=== PATIENT | male | born 1945 | race African-American/Black ===

== ENCOUNTER 2018-09-15 22:55 | Inpatient (IN) | payer MEDICARE, MEDICAID ==
[2018-09-15 23:34] LABS: % BASOPHILS 0.2 % (0.0-2.0); % EOSINOPHILS 0.3 % (0.0-5.0); % LYMPHOCYTES 14.1 % (20.0-50.0); % MONOCYTES 7.1 % (2.0-10.0); % NEUTROPHILS 78.3 % (40.0-80.0); HEMATOCRIT 30.1 % (41.0-60); HEMOGLOBIN 9.8 gm/dL (12-16); LYMPHOCYTE ABSOLUTE 1.6 Th/cmm (1.5-3.0); MEAN CELL VOLUME 80.1 fl (80-99); MEAN CORPUSCULAR HEMOGLOBIN 26.1 pg (27.0-31.0); MEAN CORPUSCULAR HGB CONC 32.5 pg (28.0-36.0); MEAN PLATELET VOLUME 8.1 fl; MONOCYTE ABSOLUTE 0.8 Th/cmm (0.3-1.0); NEUTROPHILE ABSOLUTE 9.3 Th/cmm (1.8-8.0); PLATELET COUNT 297 Th/cmm (150-400); RED BLOOD COUNT 3.76 Mil/cmm (3.80-5.80); RED CELL DISTRIBUTION WIDTH 16.1 % (11.5-20.0); WHITE BLOOD COUNT 11.7 Th/cmm (4.8-10.8)
[2018-09-15 23:53] LABS: ANION GAP 19.8 (7.0-16.0); CALCIUM SERUM 8.7 mg/dL (8.6-10.3); CARBON DIOXIDE 23.9 mEq/L (21.0-31.0); CREATININE - SERUM 1.6 mg/dL (0.7-1.3); GFR AFRICAN-AMERICAN 55.2 ml/min (>90); GFR NON AFRICAN-AMERICAN 45.6 ml/min; POTASSIUM SERUM 4.7 mEq/L (3.5-5.1)
--- NOTE | 2018-09-16 00:15 | ED Physician Chart ---
ED Chief Complaint/HPI - Patient Information Date Seen:: 09/15/18 Chief Complaint:: fall History of Present Illness:: 72 yr old male with weakness fall from nursing homes Allergies:: Allergies Allergy/AdvReac Type Severity Reaction Status Date / Time No Known Allergies Allergy Verified 09/15/18 23:08 Vitals:: Vital Signs - 8 hr 09/15/18 23:03 Temp 98.5 F HR 89 RR 17 BP 105/58 O2 Sat % 98 ED Past Medical History - Past Medical History Past Medical History: Other (copd difficulty walking dm parkinsonsanxiety paranoid schizophrenia) Family Medical History - Family Member Mother History Unknown: Yes ED Physical Exam - Physical Examination General/Constitutional: Well-developed, well-nourished Head: Atraumatic ENMT: External ears, nose nl Neck: Nontender Respiratory: Nl effort/Exclusion Cardio Vascular: RRR (patchy skin discoloration rt zamudio) GI: No tenderness/rebounding/guarding Extremities: No tenderness or effusion ED Labs/Radiology/EKG Results - Lab Results Results: Laboratory Tests 09/15/18 09/15/18 23:20 23:20 WBC 11.7 H RBC 3.76 L Hgb 9.8 L Hct 30.1 L MCV 80.1 MCH 26.1 L MCHC Differential 32.5 RDW 16.1 Plt Count 297 MPV 8.1 Neutrophils % 78.3 Lymphocytes % 14.1 L Monocytes % 7.1 Eosinophils % 0.3 Basophils % 0.2 Sodium 137 Potassium 4.7 Chloride 98 Carbon Dioxide 23.9 Anion Gap 19.8 H BUN 33 H Creatinine 1.6 H Est GFR ( Amer) 55.2 Est GFR (Non-Af Amer) 45.6 BUN/Creatinine Ratio 20.6 Glucose 168 H Calcium 8.7 Creatine Kinase 130 ED Assessment - Assessment General Assessment: weakness falls ED Septic Shock - . Is Septic Shock (SBP<90, OR Lactate>4 mmol\L) present?: No - <6hrs of presentation: Vital Signs: Vital Signs - 8 hr 09/15/18 23:03 Temp 98.5 F HR 89 RR 17 BP 105/58 O2 Sat % 98 ED Reassessment (Disposition) - Reassessment Reassessment:: weakness falls schizophrenia - Diagnosis Diagnosis:: as above - Patient Disposition Discharge/Transfer:: Acute Care w/in this hosp Admitted to:: Med/Surg Condition at Disposition:: Stable
[2018-09-16] MEDS ORDERED: Sodium Chloride 0.45% 1,000 ML IV SCH (02:00)
[2018-09-16 03:18] VITALS: BP 112/61
[2018-09-16] MEDS: Nicotine 21 mg/24 hr Tdm TD SCH (12:56)
--- NOTE | 2018-09-16 13:05 | History and Physical ---
History of Present Illness - HPI Chief Complaint: 72 y/o male patient was brought into Emergency room due to Weakness and Fall. HPI: 72 y/o male patient was admitted to [facility] due to Weakness and Fall from Detention. Patient has history of Difficulty walking, Parkinson's disease, Copd, Diabetes and Paranoid Schizophrenia. Patient was assessed at the Emergency room and had a complete workup done. Patient was diagnosed with S/p Fall, weakness, Difficulty walking, History of Parkinson's disease, Copd, Diabetes and Paranoid Schizophrenia. I will follow, treat and monitor patient. Patient will continue current treatment plan as ordered. Vital Signs: Last Vital Signs Temp 98.3 F 09/16/18 11:53 Pulse 89 09/16/18 11:53 Resp 18 09/16/18 11:53 BP 97/32 09/16/18 11:53 Pulse Ox 93 09/16/18 11:53 Past Medical History Cardiovascular: Report: No Pertinent Hx Pulmonary: Report: COPD HONEY PROCESSOR: Report: No Pertinent Hx GI: Report: No Pertinent Hx Psych: Report: Schizophrenia Musculoskeletal: Report: No Pertinent Hx Rheumatologic: Report: No pertinent Hx Renal/: Report: No Pertinent Hx Endocrine: Report: Diabetes Dermatology: Report: No Pertinent Hx - Past Surgical History Past Surgical History: No pertinent Hx Family Medical History - Family Member Mother History Unknown: Yes Ethnicity: Unknown Living Status: Unknown Hx Family Cancer: No Hx Family Coronary Artery Disease: No Hx Family Congestive Heart Failure: No Hx Family Hypertension: No Hx Family Stroke: No Hx Family Diabetes: No Hx Family Seizures: No Hx Family Dementia: No Hx Family AIDS: No Hx Family HIV: No Hx Family COPD: No Hx Family Hepatitis: No Hx Family Psychiatric Problems: No Hx Family Tuberculosis: No Social History Smoke: No Alcohol: None Drugs: None Lives: Detention Domestic Violence: Negative Health Maintenance Health Maintenance: Other (See chart.) - Medications Home Medications: Home Medication Medication Instructions Recorded Type Acetaminophen [Tylenol] 650 mg PO Q6HR PRN 09/15/18 History Amlodipine Besylate 10 mg PO DAILY 09/15/18 History Ascorbic Acid [Vitamin C] 500 mg PO DAILY 09/15/18 History Aspirin EC [Ecotrin] 81 mg PO DAILY 09/15/18 History Bisacodyl [Dulcolax 10 Mg Supp] 10 mg RC DAILY PRN 09/15/18 History Calcium Carbonate/Vitamin D3 1 each PO DAILY 09/15/18 History [Calcium 500-Vit D3 200 Caplet] Carbidopa/Levodopa [Carbidopa-Levo 1 each PO BID 09/15/18 History 25-100 mg Odt] Divalproex Sodium [Depakote] 500 mg PO BID 09/15/18 History Docusate Sodium [Dok] 250 mg PO BID 09/15/18 History Famotidine [Pepcid] 20 mg PO BID 09/15/18 History Ferrous Sulfate 325 mg PO BID 09/15/18 History Folic Acid [Folate*] 1 mg PO DAILY 09/15/18 History Glipizide [Glipizide ER] 2.5 mg PO QDAC 09/15/18 History Hydralazine [Apresoline*] 50 mg PO Q8H 09/15/18 History Hydrocodone/Acetaminophen [[place] 1 each PO Q6H PRN 09/15/18 History 5-325 Tablet] Latanoprost/Pf [Latanoprost 0.005% 1 drop LEFT EYE HS 09/15/18 History Eye Drop] Lisinopril 10 mg PO BID 09/15/18 History Magnesium Hydroxide [Milk of 30 ml PO HS PRN 09/15/18 History Magnesia] Metformin HCl 1,000 mg PO BID 09/15/18 History Metoprolol Tartrate 25 mg PO BID 09/15/18 History QUEtiapine Fumarate [SEROquel] 200 mg PO HS 09/15/18 History Salmeterol Xinafoate [Serevent 1 puff IH DAILY 09/15/18 History Diskus] - Allergies Allergies/Adverse Reactions: Allergies Allergy/AdvReac Type Severity Reaction Status Date / Time No Known Allergies Allergy Verified 09/15/18 23:08 Review of Systems - Review of Systems Constitutional: Report: No Significant Eyes: Report: No Significant ENT: Report: No Significant Respiratory: Report: No Significant Cardiovascular: Report: No Significant Gastrointestinal: Report: No Significant Genitourinary: Report: No Significant Musculoskeletal: Report: Other (Weakness.) Skin: Report: No Significant Neurological: Report: Weakness Physical Exam - Physical Exam HEENT: Report: Ears Nose Throat within normal limits Neck: Report: Within normal limits Cardiovascular Systems: Report: +s1/s2 noted, Regular, Rate and Rhythm Respiratory: Report: Breath Sounds are within normal limits Abdomen: Report: Non-tender to palpation Back: Report: Inspection of back is within normal limits. Extremities: Report: Other (General muscle weakness.) Skin: Report: Color of skin is within normal limits Neuro/Psych: Report: Mood affect is within normal limits - Lab Results All Lab Results last 24 hours: Laboratory Results - last 24 hr 09/15/18 09/15/18 09/15/18 23:20 23:20 23:20 WBC 11.7 H RBC 3.76 L Hgb 9.8 L Hct 30.1 L MCV 80.1 MCH 26.1 L MCHC Differential 32.5 RDW 16.1 Plt Count 297 MPV 8.1 Neutrophils % 78.3 Lymphocytes % 14.1 L Monocytes % 7.1 Eosinophils % 0.3 Basophils % 0.2 Sodium 137 Potassium 4.7 Chloride 98 Carbon Dioxide 23.9 Anion Gap 19.8 H BUN 33 H Creatinine 1.6 H Est GFR ( Amer) 55.2 Est GFR (Non-Af Amer) 45.6 BUN/Creatinine Ratio 20.6 Glucose 168 H Calcium 8.7 Creatine Kinase 130 Troponin I < 0.01 L - Assessment Assessment: S/p Fall. Weakness. Difficulty walking. Hx of Copd. Hx of Diabetes. Hx of Parkinson's disease. Hx of Paranoid Schizophrenia. - Plan Plan: Continuation of care Neuro checks Monitor Labs Monitor diet Continue present meds as directed Monitor mental status Fall precaution Pain management Physical therapy Occuational therapy Continue Current treatment as ordered.
[2018-09-16] MEDS: Ferrous Sulfate 325 MG TAB PO SCH ×2 (16:50→16:54)
[2018-09-17] MEDS: Calcium Carb/Vit D 500 mg/200 U Tab PO SCH (09:46)
[2018-09-17] MEDS: Nicotine 21 mg/24 hr Tdm TD SCH (09:47)
[2018-09-17] MEDS: Ferrous Sulfate 325 MG TAB PO SCH ×2 (10:53→16:39)
[2018-09-17] MEDS: Codeine/Promethazine Susp 5 mL UDC PO PRN (11:25)
[2018-09-17] MEDS: Eucerin Cream 16 oz Jar TP SCH (16:56)
--- NOTE | 2018-09-17 20:26 | Consultation ---
DATE OF CONSULTATION: 09/17/2018 HISTORY OF PRESENT ILLNESS: A 72-year-old male, apparently conserved, unclear psychiatric history, but notes he has been in a psychiatric hospital before, very unruly, agitated, yelling very loud, screaming, throwing things on the ground. Lashonda lundy had to be called. Staff having a difficult time controlling his behaviors. He may need emergency medications. The patient states that he wants me to sign papers, so that he can go back to his assisted facility, but he is very agitated, poor impulse control. PAST PSYCHIATRIC HISTORY: History of admissions in the past. SOCIAL HISTORY: Born in [place], not . No kids, no drugs, no alcohol, no tobacco. Apparently, he has a conservator. MENTAL STATUS EXAMINATION: Stated age, fair eye contact. Awake, alert. Intense eye contact. Mood "fine." Affect angry. Thought processes were tangential, very loud volume at some point. No SI, no HI, but he is unruly, very poor impulse control, aggressive towards staff. PROVISIONAL DIAGNOSES: Mood, unspecified; rule out bipolar versus schizophrenia versus schizoaffective disorder. Under medical, please see full H and P. RECOMMENDATIONS AND PLAN: The patient may need a Haldol cocktail. We will initiate 5150 hold for danger to others. JOB# [id number]
--- NOTE | 2018-09-17 20:39 | Internal Medicine Prog Note ---
Internal Medicine Subjective - Subjective Service Date: 09/17/18 Patient seen and examined:: without staff Patient is:: awake Per staff patient has:: tolerating meds Internal Medicine Objective - Results Result Diagrams: 09/15/18 23:20 09/15/18 23:20 Recent Labs: Laboratory Last Values WBC 11.7 Th/cmm (4.8-10.8) H 09/15/18 23:20 RBC 3.76 Mil/cmm (3.80-5.80) L 09/15/18 23:20 Hgb 9.8 gm/dL (12-16) L 09/15/18 23:20 Hct 30.1 % (41.0-60) L 09/15/18 23:20 MCV 80.1 fl (80-99) 09/15/18 23:20 MCH 26.1 pg (27.0-31.0) L 09/15/18 23:20 MCHC Differential 32.5 pg (28.0-36.0) 09/15/18 23:20 RDW 16.1 % (11.5-20.0) 09/15/18 23:20 Plt Count 297 Th/cmm (150-400) 09/15/18 23:20 MPV 8.1 fl 09/15/18 23:20 Neutrophils % 78.3 % (40.0-80.0) 09/15/18 23:20 Lymphocytes % 14.1 % (20.0-50.0) L 09/15/18 23:20 Monocytes % 7.1 % (2.0-10.0) 09/15/18 23:20 Eosinophils % 0.3 % (0.0-5.0) 09/15/18 23:20 Basophils % 0.2 % (0.0-2.0) 09/15/18 23:20 Sodium 137 mEq/L (136-145) 09/15/18 23:20 Potassium 4.7 mEq/L (3.5-5.1) 09/15/18 23:20 Chloride 98 mEq/L (98-107) 09/15/18 23:20 Carbon Dioxide 23.9 mEq/L (21.0-31.0) 09/15/18 23:20 Anion Gap 19.8 (7.0-16.0) H 09/15/18 23:20 BUN 33 mg/dL (7-25) H 09/15/18 23:20 Creatinine 1.6 mg/dL (0.7-1.3) H 09/15/18 23:20 Est GFR ( Amer) 55.2 ml/min (>90) 09/15/18 23:20 Est GFR (Non-Af Amer) 45.6 ml/min 09/15/18 23:20 BUN/Creatinine Ratio 20.6 09/15/18 23:20 Glucose 168 mg/dL (70-105) H 09/15/18 23:20 Calcium 8.7 mg/dL (8.6-10.3) 09/15/18 23:20 Creatine Kinase 130 U/L (30-223) 09/15/18 23:20 Troponin I < 0.01 ng/mL (0.01-0.05) L 09/15/18 23:20 - Physical Exam Vitals and I&O: Vital Signs Temp 97.6 F 09/17/18 16:00 Pulse 86 09/17/18 17:34 Resp 18 09/17/18 16:00 BP 110/63 09/17/18 17:34 Pulse Ox 96 09/17/18 16:00 Intake & Output 09/17/18 09/17/18 09/18/18 06:59 18:59 06:59 Intake Total 300 900 Balance 300 900 Weight (lbs) 212 lb 212 lb Intake: Oral 300 900 Other: # Voids 4 3 Weight Source Bedscale Bedscale Active Medications: Current Medications Acetaminophen (Tylenol) 650 mg PO Q6HR PRN PRN Reason: Pain or Fever >101 Stop: 11/15/18 10:20 Last Admin: 09/17/18 15:15 Dose: 650 mg Amlodipine Besylate (Norvasc) 10 mg PO DAILY [facility] Stop: 11/16/18 08:59 Last Admin: 09/17/18 10:52 Dose: Not Given Ascorbic Acid (Vitamin C) 500 mg PO DAILY [facility] Stop: 11/16/18 08:59 Last Admin: 09/17/18 09:46 Dose: 500 mg Aspirin (Ecotrin) 81 mg PO DAILY [facility] Stop: 11/16/18 08:59 Last Admin: 09/17/18 09:47 Dose: 81 mg Bisacodyl (Dulcolax 10 Mg Supp) 10 mg RC DAILY PRN PRN Reason: Constipation Stop: 11/15/18 10:20 Calcium/Vitamin D (Oscal W/Vitamin D) 1 tab PO DAILY [facility] Stop: 11/16/18 08:59 Last Admin: 09/17/18 09:46 Dose: 1 tab Carbidopa/Levodopa (Sinemet 25mg-100 Mg) 1 tab PO BID [facility] Stop: 11/15/18 16:59 Last Admin: 09/17/18 16:39 Dose: 1 tab Docusate Sodium (Colace) 250 mg PO BID [facility] Stop: 11/15/18 16:59 Last Admin: 09/17/18 16:39 Dose: 250 mg Famotidine (Pepcid) 20 mg PO BID [facility] Stop: 11/15/18 16:59 Last Admin: 09/17/18 16:39 Dose: 20 mg Ferrous Sulfate (Iron) 325 mg PO BID [facility] Stop: 11/15/18 16:59 Last Admin: 09/17/18 16:39 Dose: 325 mg Folic Acid (Folate) 1 mg PO DAILY [facility] Stop: 11/16/18 08:59 Last Admin: 09/17/18 09:46 Dose: 1 mg Glipizide (Glucotrol) 2.5 mg PO QDAC [facility] Stop: 11/16/18 07:29 Last Admin: 09/17/18 06:35 Dose: Not Given Hydralazine HCl (Apresoline) 50 mg PO Q8H [facility] Stop: 11/15/18 10:29 Last Admin: 09/17/18 17:34 Dose: Not Given Sodium Chloride (Nacl 0.45%) 1,000 mls @ 75 mls/hr IV .[id number] [facility] Stop: 11/15/18 01:59 Miscellaneous (Clinical Monitoring) 1 ea MC DAILY PRN PRN Reason: RENAL DOSING Stop: 11/15/18 10:35 Multi-Ingredient Cream (Eucerin Cream) 1 appl TP BID [facility] Stop: 11/16/18 16:59 Last Admin: 09/17/18 16:56 Dose: 1 appl Nicotine (Nicotine Transdermal System) 21 mg TD DAILY [facility] Stop: 11/15/18 10:44 Last Admin: 09/17/18 09:47 Dose: 21 mg Promethazine HCl/Codeine (Phenergan W/Cod Susp) 10 ml PO TID PRN PRN Reason: Cough Stop: 11/16/18 10:47 Last Admin: 09/17/18 11:25 Dose: 10 ml Quetiapine Fumarate (Seroquel) 25 mg PO BID [facility]; Protocol Stop: 11/16/18 16:59 Last Admin: 09/17/18 16:39 Dose: 25 mg HEENT: NC/AT, PERRLA Neck: Supple Lungs: CTAB Cardiovascular: RRR, without murmur Abdomen: non-tender, non-distended Internal Medicine Assmt/Plan - Assessment Assessment: S/p Fall. Weakness. Difficulty walking. Hx of Copd. Hx of Diabetes. Hx of Parkinson's disease. Hx of Paranoid Schizophrenia. d. - Plan Plan: Continuation of care Neuro checks Monitor Labs Monitor diet Continue present meds as directed Monitor mental status Fall precaution Pain management Physical therapy Occuational therapy Continue Current treatment as ordere
[2018-09-18] MEDS: Codeine/Promethazine Susp 5 mL UDC PO PRN (03:06)
[2018-09-18] MEDS: Nicotine 21 mg/24 hr Tdm TD SCH (08:29)
[2018-09-18] MEDS: Calcium Carb/Vit D 500 mg/200 U Tab PO SCH (08:47)
[2018-09-18] MEDS: Ferrous Sulfate 325 MG TAB PO SCH ×2 (08:48→16:04)
[2018-09-18] MEDS: Eucerin Cream 16 oz Jar TP SCH ×2 (08:49→16:04)
--- NOTE | 2018-09-18 16:50 | Internal Medicine Prog Note ---
Internal Medicine Subjective - Subjective Service Date: 09/18/18 Patient seen and examined:: with staff, chart reviewed Patient is:: awake, agitated, confused Patient Complaints of:: other (Aggressive behavior.) Per staff patient has:: no episodes of fall, tolerating meds Internal Medicine Objective - Results Result Diagrams: 09/15/18 23:20 09/15/18 23:20 Recent Labs: Laboratory Last Values WBC 11.7 Th/cmm (4.8-10.8) H 09/15/18 23:20 RBC 3.76 Mil/cmm (3.80-5.80) L 09/15/18 23:20 Hgb 9.8 gm/dL (12-16) L 09/15/18 23:20 Hct 30.1 % (41.0-60) L 09/15/18 23:20 MCV 80.1 fl (80-99) 09/15/18 23:20 MCH 26.1 pg (27.0-31.0) L 09/15/18 23:20 MCHC Differential 32.5 pg (28.0-36.0) 09/15/18 23:20 RDW 16.1 % (11.5-20.0) 09/15/18 23:20 Plt Count 297 Th/cmm (150-400) 09/15/18 23:20 MPV 8.1 fl 09/15/18 23:20 Neutrophils % 78.3 % (40.0-80.0) 09/15/18 23:20 Lymphocytes % 14.1 % (20.0-50.0) L 09/15/18 23:20 Monocytes % 7.1 % (2.0-10.0) 09/15/18 23:20 Eosinophils % 0.3 % (0.0-5.0) 09/15/18 23:20 Basophils % 0.2 % (0.0-2.0) 09/15/18 23:20 Sodium 137 mEq/L (136-145) 09/15/18 23:20 Potassium 4.7 mEq/L (3.5-5.1) 09/15/18 23:20 Chloride 98 mEq/L (98-107) 09/15/18 23:20 Carbon Dioxide 23.9 mEq/L (21.0-31.0) 09/15/18 23:20 Anion Gap 19.8 (7.0-16.0) H 09/15/18 23:20 BUN 33 mg/dL (7-25) H 09/15/18 23:20 Creatinine 1.6 mg/dL (0.7-1.3) H 09/15/18 23:20 Est GFR ( Amer) 55.2 ml/min (>90) 09/15/18 23:20 Est GFR (Non-Af Amer) 45.6 ml/min 09/15/18 23:20 BUN/Creatinine Ratio 20.6 09/15/18 23:20 Glucose 168 mg/dL (70-105) H 09/15/18 23:20 Calcium 8.7 mg/dL (8.6-10.3) 09/15/18 23:20 Creatine Kinase 130 U/L (30-223) 09/15/18 23:20 Troponin I < 0.01 ng/mL (0.01-0.05) L 09/15/18 23:20 - Physical Exam Vitals and I&O: Vital Signs Temp 98.6 F 09/18/18 16:00 Pulse 106 09/18/18 16:00 Resp 18 09/18/18 16:00 BP 149/80 09/18/18 16:00 Pulse Ox 97 09/18/18 16:00 Intake & Output 09/17/18 09/18/18 09/18/18 18:59 06:59 18:59 Intake Total 900 Balance 900 Weight (lbs) 96.162 kg 96.162 kg Intake: Oral 900 Other: # Voids 3 1 Weight Source Bedscale Bedscale Active Medications: Current Medications Acetaminophen (Tylenol) 650 mg PO Q6HR PRN PRN Reason: Pain or Fever >101 Stop: 11/15/18 10:20 Last Admin: 09/18/18 03:09 Dose: 650 mg Amlodipine Besylate (Norvasc) 10 mg PO DAILY [facility] Stop: 11/16/18 08:59 Last Admin: 09/18/18 08:47 Dose: Not Given Ascorbic Acid (Vitamin C) 500 mg PO DAILY [facility] Stop: 11/16/18 08:59 Last Admin: 09/18/18 08:47 Dose: Not Given Aspirin (Ecotrin) 81 mg PO DAILY [facility] Stop: 11/16/18 08:59 Last Admin: 09/18/18 08:47 Dose: Not Given Bisacodyl (Dulcolax 10 Mg Supp) 10 mg RC DAILY PRN PRN Reason: Constipation Stop: 11/15/18 10:20 Calcium/Vitamin D (Oscal W/Vitamin D) 1 tab PO DAILY [facility] Stop: 11/16/18 08:59 Last Admin: 09/18/18 08:47 Dose: Not Given Carbidopa/Levodopa (Sinemet 25mg-100 Mg) 1 tab PO BID [facility] Stop: 11/15/18 16:59 Last Admin: 09/18/18 16:04 Dose: 1 tab Docusate Sodium (Colace) 250 mg PO BID [facility] Stop: 11/15/18 16:59 Last Admin: 09/18/18 16:04 Dose: 250 mg Famotidine (Pepcid) 20 mg PO BID [facility] Stop: 11/15/18 16:59 Last Admin: 09/18/18 16:04 Dose: 20 mg Ferrous Sulfate (Iron) 325 mg PO BID [facility] Stop: 11/15/18 16:59 Last Admin: 09/18/18 16:04 Dose: 325 mg Folic Acid (Folate) 1 mg PO DAILY [facility] Stop: 11/16/18 08:59 Last Admin: 09/18/18 08:32 Dose: 1 mg Glipizide (Glucotrol) 2.5 mg PO QDAC [facility] Stop: 11/16/18 07:29 Last Admin: 09/18/18 08:47 Dose: Not Given Hydralazine HCl (Apresoline) 50 mg PO Q8H [facility] Stop: 11/15/18 10:29 Last Admin: 09/18/18 11:04 Dose: 50 mg Sodium Chloride (Nacl 0.45%) 1,000 mls @ 75 mls/hr IV .[id number] [facility] Stop: 11/15/18 01:59 Lorazepam (Ativan) 1 mg IM Q4HR PRN; Protocol PRN Reason: Agitation Stop: 11/16/18 22:18 Miscellaneous (Clinical Monitoring) 1 ea MC DAILY PRN PRN Reason: RENAL DOSING Stop: 11/15/18 10:35 Multi-Ingredient Cream (Eucerin Cream) 1 appl TP BID [facility] Stop: 11/16/18 16:59 Last Admin: 09/18/18 16:04 Dose: 1 appl Nicotine (Nicotine Transdermal System) 21 mg TD DAILY [facility] Stop: 11/15/18 10:44 Last Admin: 09/18/18 08:29 Dose: 21 mg Promethazine HCl/Codeine (Phenergan W/Cod Susp) 10 ml PO TID PRN PRN Reason: Cough Stop: 11/16/18 10:47 Last Admin: 09/18/18 03:06 Dose: 10 ml Quetiapine Fumarate (Seroquel) 25 mg PO BID [facility]; Protocol Stop: 11/16/18 16:59 Last Admin: 09/18/18 16:04 Dose: 25 mg General: demented HEENT: NC/AT, PERRLA Neck: Supple Lungs: CTAB Cardiovascular: RRR, without murmur Abdomen: non-tender, non-distended Extremities: clear Neurological: no change, disorganized Internal Medicine Assmt/Plan - Assessment Assessment: S/p Fall. Weakness. Difficulty walking. Hx of Copd. Hx of Diabetes. Hx of Parkinson's disease. Hx of Paranoid Schizophrenia. - Plan Plan: Continuation of care Monitor Labs Monitor diet Psych consult Continue present meds as directed Monitor mental status Fall precaution Pain management Physical therapy Occuational therapy Continue Current treatment as ordered. Nutritional Asmnt/Malnutr-PDOC - Dietary Evaluation Malnutrition Findings (Please click <Entered> for more info): Nutritional Asmnt/Malnutrition Start: 09/18/18 13: 52 Text: Status: Complete Freq: Protocol: Document 09/18/18 13:53 LCHENG (Rec: 09/18/18 14:00 [email or web address] [email or web address]) Nutritional Asmnt/Malnutrition Patient General Information Diagnosis fall, generalized weakness, anemia, DM Pertinent Medical Hx/Surgical Hx COPD, schizophrenia, DM Subjective Information Consult received for DM type2, discoloration koko lower legs, and mavis score 12. Pt seen lying in bed, awake and alert, easily agitated, not able to obtain more nutrition infomation from pt. Per RN, pt refused medication and IV. Pt stated appetite is very good, he likes chicken. Per EMR, PO intake 75%. Current Diet Order/ Nutrition Support CCHO Pertinent Medications vit C, oscal w/vit D, colace, pepcid, iron, folate, seroquel , nacl 0.45% Pertinent Labs 09/15 BUN 33, Cr 1.6, glucose 168 Nutritional Hx/Data Height 1.75 m Height (Calculated Centimeters) 175.3 Current Weight (lbs) 96.162 kg Weight (Calculated Kilograms) 96.2 Weight (Calculated Grams) 16305.6 [place] Body Weight 160 Body Mass Index (BMI) 31.3 Weight Status Obese GI Symptoms GI Symptoms None Last BM none Difficult in: None Skin Integrity/Comment: bilateral lower legs discoloration. mavis 14. per wound care note - chronic wound to right knee, re-ppened scar tissure to right zamudio. Estimated Nutritional Goals BEE in Kcals: Adj wt of IBW Calories/Kcals/Kg 23-27 Kcals Calculated 2820-2796 Protein: Adj wt of IBW Protein g/k monitor renal labs Protein Calculated 79 Fluid: ml 1817-2133ml (1ml/kcal) Nutritional Problem 1. Problem Problem altered nutrition related labs Etiology hyperglycemia, possible renal dysfunction Signs/Symptoms: BUN 33, Cr 1.6, glucose 168 Malnutrition Alert Is there a minimum of two criteria No selected? Query Text:Check all the applicable criteria. A minimum of two criteria are recommended for diagnosis of either severe or non-severe malnutrition. Malnutrition Related to Morbid Obesity Malnutrition related to morbid obesity No Intervention/Recommendation Comments 1. Continue with [facility] diet as ordered. Food preference updated. Add Eagle BID for wound healing. 2. Monitor PO intake, wt, labs and skin integrity 3. F/U as moderate risk in 3-5 days Expected Outcomes/Goals Expected Outcomes/Goals 1. PO intake to meet at least 75% of nutritional needs. 2. Wt stability, skin to remain intact, labs to approach WNL.
[2018-09-19] MEDS: Codeine/Promethazine Susp 5 mL UDC PO PRN (02:13)
[2018-09-19] MEDS: Eucerin Cream 16 oz Jar TP SCH ×2 (08:42→17:39)
[2018-09-19] MEDS: Calcium Carb/Vit D 500 mg/200 U Tab PO SCH (08:42)
[2018-09-19] MEDS: Ferrous Sulfate 325 MG TAB PO SCH ×3 (08:43→17:38)
[2018-09-19] MEDS: Nicotine 21 mg/24 hr Tdm TD SCH (08:43)
--- NOTE | 2018-09-19 18:52 | Internal Medicine Prog Note ---
Internal Medicine Subjective - Subjective Service Date: 09/19/18 Patient is:: awake, agitated, confused Patient Complaints of:: other (Aggressive behavior.) Per staff patient has:: no episodes of fall, tolerating meds Internal Medicine Objective - Results Result Diagrams: 09/15/18 23:20 09/15/18 23:20 Recent Labs: Laboratory Last Values WBC 11.7 Th/cmm (4.8-10.8) H 09/15/18 23:20 RBC 3.76 Mil/cmm (3.80-5.80) L 09/15/18 23:20 Hgb 9.8 gm/dL (12-16) L 09/15/18 23:20 Hct 30.1 % (41.0-60) L 09/15/18 23:20 MCV 80.1 fl (80-99) 09/15/18 23:20 MCH 26.1 pg (27.0-31.0) L 09/15/18 23:20 MCHC Differential 32.5 pg (28.0-36.0) 09/15/18 23:20 RDW 16.1 % (11.5-20.0) 09/15/18 23:20 Plt Count 297 Th/cmm (150-400) 09/15/18 23:20 MPV 8.1 fl 09/15/18 23:20 Neutrophils % 78.3 % (40.0-80.0) 09/15/18 23:20 Lymphocytes % 14.1 % (20.0-50.0) L 09/15/18 23:20 Monocytes % 7.1 % (2.0-10.0) 09/15/18 23:20 Eosinophils % 0.3 % (0.0-5.0) 09/15/18 23:20 Basophils % 0.2 % (0.0-2.0) 09/15/18 23:20 Sodium 137 mEq/L (136-145) 09/15/18 23:20 Potassium 4.7 mEq/L (3.5-5.1) 09/15/18 23:20 Chloride 98 mEq/L (98-107) 09/15/18 23:20 Carbon Dioxide 23.9 mEq/L (21.0-31.0) 09/15/18 23:20 Anion Gap 19.8 (7.0-16.0) H 09/15/18 23:20 BUN 33 mg/dL (7-25) H 09/15/18 23:20 Creatinine 1.6 mg/dL (0.7-1.3) H 09/15/18 23:20 Est GFR ( Amer) 55.2 ml/min (>90) 09/15/18 23:20 Est GFR (Non-Af Amer) 45.6 ml/min 09/15/18 23:20 BUN/Creatinine Ratio 20.6 09/15/18 23:20 Glucose 168 mg/dL (70-105) H 09/15/18 23:20 Calcium 8.7 mg/dL (8.6-10.3) 09/15/18 23:20 Creatine Kinase 130 U/L (30-223) 09/15/18 23:20 Troponin I < 0.01 ng/mL (0.01-0.05) L 09/15/18 23:20 - Physical Exam Vitals and I&O: Vital Signs Temp 97.5 F 09/19/18 04:00 Pulse 81 09/19/18 17:38 Resp 18 09/19/18 04:00 BP 126/78 09/19/18 17:38 Pulse Ox 96 09/19/18 04:00 Intake & Output 09/18/18 09/19/18 09/19/18 18:59 06:59 18:59 Intake Total 600 100 Balance 600 100 Weight (lbs) 215 lb 215 lb Intake: Oral 600 100 Other: # Voids 5 # Bowel Movements 0 0 Weight Source Bedscale Bedscale Active Medications: Current Medications Acetaminophen (Tylenol) 650 mg PO Q6HR PRN PRN Reason: Pain or Fever >101 Stop: 11/15/18 10:20 Last Admin: 09/18/18 20:03 Dose: 650 mg Amlodipine Besylate (Norvasc) 10 mg PO DAILY [facility] Stop: 11/16/18 08:59 Last Admin: 09/19/18 08:42 Dose: Not Given Ascorbic Acid (Vitamin C) 500 mg PO DAILY [facility] Stop: 11/16/18 08:59 Last Admin: 09/19/18 08:42 Dose: Not Given Aspirin (Ecotrin) 81 mg PO DAILY [facility] Stop: 11/16/18 08:59 Last Admin: 09/19/18 08:42 Dose: Not Given Bisacodyl (Dulcolax 10 Mg Supp) 10 mg RC DAILY PRN PRN Reason: Constipation Stop: 11/15/18 10:20 Calcium/Vitamin D (Oscal W/Vitamin D) 1 tab PO DAILY [facility] Stop: 11/16/18 08:59 Last Admin: 09/19/18 08:42 Dose: Not Given Carbidopa/Levodopa (Sinemet 25mg-100 Mg) 1 tab PO BID [facility] Stop: 11/15/18 16:59 Last Admin: 09/19/18 17:39 Dose: 1 tab Docusate Sodium (Colace) 250 mg PO BID [facility] Stop: 11/15/18 16:59 Last Admin: 09/19/18 17:39 Dose: Not Given Famotidine (Pepcid) 20 mg PO BID [facility] Stop: 11/15/18 16:59 Last Admin: 09/19/18 17:39 Dose: 20 mg Ferrous Sulfate (Iron) 325 mg PO BID [facility] Stop: 11/15/18 16:59 Last Admin: 09/19/18 17:38 Dose: 325 mg Folic Acid (Folate) 1 mg PO DAILY [facility] Stop: 11/16/18 08:59 Last Admin: 09/19/18 08:43 Dose: Not Given Glipizide (Glucotrol) 2.5 mg PO QDAC [facility] Stop: 11/16/18 07:29 Last Admin: 09/19/18 07:07 Dose: 2.5 mg Hydralazine HCl (Apresoline) 50 mg PO Q8H [facility] Stop: 11/15/18 10:29 Last Admin: 09/19/18 17:38 Dose: 50 mg Sodium Chloride (Nacl 0.45%) 1,000 mls @ 75 mls/hr IV .[id number] [facility] Stop: 11/15/18 01:59 Lorazepam (Ativan) 1 mg IM Q4HR PRN; Protocol PRN Reason: Agitation Stop: 11/16/18 22:18 Last Admin: 09/19/18 08:37 Dose: 1 mg Miscellaneous (Clinical Monitoring) 1 ea MC DAILY PRN PRN Reason: RENAL DOSING Stop: 11/15/18 10:35 Multi-Ingredient Cream (Eucerin Cream) 1 appl TP BID [facility] Stop: 11/16/18 16:59 Last Admin: 09/19/18 17:39 Dose: 1 appl Nicotine (Nicotine Transdermal System) 21 mg TD DAILY [facility] Stop: 11/15/18 10:44 Last Admin: 09/19/18 08:43 Dose: Not Given Promethazine HCl/Codeine (Phenergan W/Cod Susp) 10 ml PO TID PRN PRN Reason: Cough Stop: 11/16/18 10:47 Last Admin: 09/19/18 02:13 Dose: 10 ml Quetiapine Fumarate (Seroquel) 25 mg PO BID [facility]; Protocol Stop: 11/16/18 16:59 Last Admin: 09/19/18 17:39 Dose: 25 mg General: demented HEENT: NC/AT, PERRLA Neck: Supple Lungs: CTAB Cardiovascular: RRR, without murmur Abdomen: non-tender, non-distended Extremities: clear Neurological: no change, disorganized Internal Medicine Assmt/Plan - Assessment Assessment: S/p Fall. Weakness. Difficulty walking. Hx of Copd. Hx of Diabetes. Hx of Parkinson's disease. Hx of Paranoid Schizophrenia. d. - Plan Plan: Continuation of care Neuro checks Monitor Labs Monitor diet Continue present meds as directed Monitor mental status Fall precaution Pain management Physical therapy Occuational therapy Continue Current treatment as ordere Nutritional Asmnt/Malnutr-PDOC - Dietary Evaluation Malnutrition Findings (Please click <Entered> for more info): Nutritional Asmnt/Malnutrition Start: 09/18/18 13: 52 Text: Status: Complete Freq: Protocol: Document 09/18/18 13:53 LCASHLEYG (Rec: 09/18/18 14:00 JL [email or web address]) Nutritional Asmnt/Malnutrition Patient General Information Diagnosis fall, generalized weakness, anemia, DM Pertinent Medical Hx/Surgical Hx COPD, schizophrenia, DM Subjective Information Consult received for DM type2, discoloration koko lower legs, and mavis score 12. Pt seen lying in bed, awake and alert, easily agitated, not able to obtain more nutrition infomation from pt. Per RN, pt refused medication and IV. Pt stated appetite is very good, he likes chicken. Per EMR, PO intake 75%. Current Diet Order/ Nutrition Support [facility] Pertinent Medications vit C, oscal w/vit D, colace, pepcid, iron, folate, seroquel , nacl 0.45% Pertinent Labs 09/15 BUN 33, Cr 1.6, glucose 168 Nutritional Hx/Data Height 5 ft 9 in Height (Calculated Centimeters) 175.3 Current Weight (lbs) 212 lb Weight (Calculated Kilograms) 96.2 Weight (Calculated Grams) 09642.6 [place] Body Weight 160 Body Mass Index (BMI) 31.3 Weight Status Obese GI Symptoms GI Symptoms None Last BM none Difficult in: None Skin Integrity/Comment: bilateral lower legs discoloration. mavis 14. per wound care note - chronic wound to right knee, re-ppened scar tissure to right zamudio. Estimated Nutritional Goals BEE in Kcals: Adj wt of IBW Calories/Kcals/Kg 23-27 Kcals Calculated 3046-4812 Protein: Adj wt of IBW Protein g/k monitor renal labs Protein Calculated 79 Fluid: ml 1817-2133ml (1ml/kcal) Nutritional Problem 1. Problem Problem altered nutrition related labs Etiology hyperglycemia, possible renal dysfunction Signs/Symptoms: BUN 33, Cr 1.6, glucose 168 Malnutrition Alert Is there a minimum of two criteria No selected? Query Text:Check all the applicable criteria. A minimum of two criteria are recommended for diagnosis of either severe or non-severe malnutrition. Malnutrition Related to Morbid Obesity Malnutrition related to morbid obesity No Intervention/Recommendation Comments 1. Continue with [facility] diet as ordered. Food preference updated. Add [place] BID for wound healing. 2. Monitor PO intake, wt, labs and skin integrity 3. F/U as moderate risk in 3-5 days Expected Outcomes/Goals Expected Outcomes/Goals 1. PO intake to meet at least 75% of nutritional needs. 2. Wt stability, skin to remain intact, labs to approach WNL.
== END 2018-09-19 21:25 | DRG 682 ==
LOC: ER 22:55 → TELE 09-16 01:00 → MSI 09-16 12:40
PROVIDERS: ADMIT Internal Medicine; ATTEND Internal Medicine
DX: N17.0 Acute kidney failure with tubular necrosis (principal); R53.2 Functional quadriplegia; F20.0 Paranoid schizophrenia; R53.1 Weakness; R29.6 Repeated falls; E11.9 Type 2 diabetes mellitus without complications; J44.9 Chronic obstructive pulmonary disease, unspecified; N18.2 Chronic kidney disease, stage 2 (mild); E11.22 Type 2 diabetes mellitus with diabetic chronic kidney disease; G20 Parkinson's disease; F39 Unspecified mood [affective] disorder; F41.9 Anxiety disorder, unspecified; Z79.84 Long term (current) use of oral hypoglycemic drugs; Z91.81 History of falling
CPT/HCPCS: 36415-UA; 80048-TC; 82550-TC; 84484-TC; 85025-TC; J2060; J7042; Z7610

== ENCOUNTER 2018-09-19 22:06 | Inpatient (IN) | payer MEDICARE, MEDICAID ==
[2018-09-19 22:42] VITALS: BP 141/83
[2018-09-19] MEDS ORDERED: Magnesium Hydroxide (MOM) 30 mL UDC PO PRN (22:54)
[2018-09-19] MEDS ORDERED: Hydrocodone/APAP 5mg/325mg Tab PO PRN (22:54)
[2018-09-20] MEDS ORDERED: GLIPIZIDE 2.5 MG PO SCH (07:30)
[2018-09-20] MEDS: Calcium Carb/Vit D 500 mg/200 U Tab PO SCH (08:26)
[2018-09-20] MEDS: Albuterol Nebulizer 2.5mg/3mL HHN SCH ×2 (08:27→12:36)
[2018-09-20] MEDS: Ferrous Sulfate 325 MG TAB PO SCH ×2 (08:27→16:19)
[2018-09-20] MEDS ORDERED: SALMETEROL XINAFOATE IH SCH (09:00)
--- NOTE | 2018-09-20 12:47 | Psychiatric Evaluation ---
DATE OF SERVICE: 09/19/2018 IDENTIFYING INFORMATION: The patient is a 72-year-old black male. CHIEF COMPLAINT: No answer. HISTORY OF PRESENT ILLNESS: The patient was admitted on a hold, written by Dr. Peter; that was written because of aggressive, agitated behavior, yelling and screaming, throwing objects, very impulsive. When I talked to him, he was very agitated, refused to answer questions, unpredictable, impulsive, needing redirection. He was mumbling to himself, unable to carry on a conversation. He has already been started on medications and he is on Depakote 500 mg twice a day, Seroquel 200 mg at bedtime and Ativan as needed. PAST PSYCHIATRIC HISTORY: When asked about previous treatment, he said "of course and started yelling, was unable to tell me." When asked about the reason for admission it is because of his knee. MEDICAL HISTORY: Deferred to the medical doctor. ALLERGIES: He has no known drug allergy. FAMILY AND SOCIAL HISTORY: The patient was single, never , no children. High school education. However, he said he used to use drugs, but he would not give me more details. MENTAL STATUS EXAMINATION: The patient is appropriately dressed, not very well groomed. He has a hat on. He was in a hospital gown. He is alert, oriented, unable tell me the date, where he is, why he is here, getting easily agitated and very irritable, unable to make safe plan for self-care. He is unable to participate in memory testing. He was very psychotic and agitated. His insight and judgment is impaired. IMPRESSION: Schizoaffective disorder. INITIAL TREATMENT PLAN: The patient will be continued with his medication. We will do group therapy, milieu therapy, and individual therapy. ESTIMATED LENGTH OF STAY: 3-7 days. DISCHARGE CRITERIA: Decrease in agitation, psychosis after discharge, outpatient. [facility]# [id number]
--- NOTE | 2018-09-20 14:10 | History and Physical ---
History of Present Illness - HPI Chief Complaint: Patient was admitted on a Hold, which was written by Dr. Peter. HPI: 72 y/o male patient was admitted on a Hold, which was written by Dr. Peter. It was written because patient was very aggressive, agitated behavior. Patient was very impulsive, he was yelling, screaming and throwing objects. Patient was very irritable and due to his unsafe behavior was put on a Hold. Patient has history of S/p Fall, Weakness, Difficulty walking, Diabetes, Paranoid schizophrenia, Parkinson's Disease and Copd. Patient was diagnosed with Psychosis, Paranoid schizophrenia,S/p Fall, Weakness , Difficulty walking and Diabetes. Patient had a Psych evaluation and a workup was done. Patient will continue present Psych meds as directed. I will continue to follow, treat and monitor patient. Patient will continue current treatment plan as ordered. Vital Signs: Last Vital Signs Temp 98.0 F 09/19/18 22:18 Pulse 87 09/20/18 09:01 Resp 21 09/19/18 22:18 BP 136/79 09/20/18 09:01 Pulse Ox Past Medical History Cardiovascular: Report: No Pertinent Hx Pulmonary: Report: COPD [employer]: Report: Other (Parkinson's disease.) Psych: Report: Schizophrenia Musculoskeletal: Report: Weakness, Other (Difficulty walking, Hx of Falls.) Rheumatologic: Report: No pertinent Hx Infectious Disease: Report: No Pertinent Hx Renal/: Report: No Pertinent Hx Endocrine: Report: Diabetes Dermatology: Report: No Pertinent Hx - Past Surgical History Past Surgical History: No pertinent Hx Family Medical History - Family Member Mother History Unknown: Yes Ethnicity: Unknown Living Status: Unknown Hx Family Cancer: No Hx Family Coronary Artery Disease: No Hx Family Congestive Heart Failure: No Hx Family Hypertension: No Hx Family Stroke: No Hx Family Diabetes: No Hx Family Seizures: No Hx Family Dementia: No Hx Family AIDS: No Hx Family HIV: No Hx Family COPD: No Hx Family Hepatitis: No Hx Family Psychiatric Problems: No Hx Family Tuberculosis: No Social History Smoke: No Alcohol: None Drugs: None Lives: [place] Domestic Violence: Negative Health Maintenance Health Maintenance: Other (see chart.) - Medications Home Medications: Home Medication Medication Instructions Recorded Type Acetaminophen [Tylenol] 650 mg PO Q6HR PRN 09/15/18 History Amlodipine Besylate 10 mg PO DAILY 09/15/18 History Ascorbic Acid [Vitamin C] 500 mg PO DAILY 09/15/18 History Aspirin EC [Ecotrin] 81 mg PO DAILY 09/15/18 History Bisacodyl [Dulcolax 10 Mg Supp] 10 mg RC DAILY PRN 09/15/18 History Calcium Carbonate/Vitamin D3 1 each PO DAILY 09/15/18 History [Calcium 500-Vit D3 200 Caplet] Carbidopa/Levodopa [Carbidopa-Levo 1 each PO BID 09/15/18 History 25-100 mg Odt] Divalproex Sodium [Depakote] 500 mg PO BID 09/15/18 History Docusate Sodium [Dok] 250 mg PO BID 09/15/18 History Famotidine [Pepcid] 20 mg PO BID 09/15/18 History Ferrous Sulfate 325 mg PO BID 09/15/18 History Folic Acid [Folate*] 1 mg PO DAILY 09/15/18 History Glipizide [Glipizide ER] 2.5 mg PO QDAC 09/15/18 History Hydralazine [Apresoline*] 50 mg PO Q8H 09/15/18 History Hydrocodone/Acetaminophen [[place] 1 each PO Q6H PRN 09/15/18 History 5-325 Tablet] Latanoprost/Pf [Latanoprost 0.005% 1 drop LEFT EYE HS 09/15/18 History Eye Drop] Lisinopril 10 mg PO BID 09/15/18 History Magnesium Hydroxide [Milk of 30 ml PO HS PRN 09/15/18 History Magnesia] Metformin HCl 1,000 mg PO BID 09/15/18 History Metoprolol Tartrate 25 mg PO BID 09/15/18 History QUEtiapine Fumarate [SEROquel] 200 mg PO HS 09/15/18 History Salmeterol Xinafoate [Serevent 1 puff IH DAILY 09/15/18 History Diskus] - Allergies Allergies/Adverse Reactions: Allergies Allergy/AdvReac Type Severity Reaction Status Date / Time No Known Allergies Allergy Verified 09/15/18 23:08 Review of Systems - Review of Systems Constitutional: Report: Weakness Eyes: Report: No Significant ENT: Report: No Significant Respiratory: Report: No Significant Cardiovascular: Report: No Significant Genitourinary: Report: No Significant Musculoskeletal: Report: Other (s/p fall.) Skin: Report: No Significant Neurological: Report: Weakness Other: Patient is very aggressive and Irritated. Patient has mood swings. put on Hold- Presents a Danger to himself and to others. Psych will management by psych. Physical Exam - Physical Exam HEENT: Report: Ears Nose Throat within normal limits Neck: Report: Within normal limits Cardiovascular Systems: Report: +s1/s2 noted, Regular, Rate and Rhythm Respiratory: Report: Breath Sounds are within normal limits Abdomen: Report: Non-tender to palpation Back: Report: Inspection of back is within normal limits. Extremities: Report: Other Skin: Report: Color of skin is within normal limits Neuro/Psych: Report: Other (Agitated and Irritated. ) - Lab Results All Lab Results last 24 hours: see labs - Assessment Assessment: Psychosis. Agitated and Irritated. Weakness. Paranoid Schizophrenia. Parkinson's Disease. Diabetes. Copd. Hx of Falls. - Plan Plan: Continuation of care. Continue present meds as directed. Psych consult/followup. Monitor Diabetic diet. Supportive care. Accu-checks twice daily, continue DM meds as directed. Fall precauton. Physical therapy. Occupational therapy. Continue current treatment plan as ordered.
--- NOTE | 2018-09-21 07:23 | Progress Notes ---
DATE: 09/21/2018 The patient on hold, aggressive, agitated, yelling, screaming, throwing objects, very impulsive. The patient remains agitated, aggressive, pacing back and forth, yelling, screaming, irritable. Staff having a difficult time controlling his behaviors, is currently on a dosing of Depakote and Sinemet. The patient also on Seroquel 200 mg at night. The patient with ongoing concerns in regards to his behaviors. ASSESSMENT: The patient agitated, psychotically driven agitation. PLAN: I will continue to monitor. I will be increasing his dosing of antipsychotic medications to attempt to address ongoing behavioral disturbances. We will continue to monitor. Medications were reviewed. [facility]# [id number]
[2018-09-21] MEDS: Calcium Carb/Vit D 500 mg/200 U Tab PO SCH (08:43)
[2018-09-21] MEDS: Ferrous Sulfate 325 MG TAB PO SCH ×2 (08:43→16:49)
--- NOTE | 2018-09-22 07:24 | Progress Notes ---
DATE: 09/22/2018 DATE OF SERVICE: 09/22/2018 SUBJECTIVE: The patient is currently in the hospital, yelling, screaming, aggressive behaviors, really irritable on exam. I asked him some questions about his social circumstances. He really does not want to answer them, "It's none of your business". The patient noted to be unruly, staff noting he remains anxious, easily agitated. Slept for about 6 hours. He tells me he did take his medications. Fair sleep, fair appetite. ASSESSMENT: The patient is unruly, agitated, a difficult historian. We will continue to monitor. The patient with history of aggressive behaviors in the hospital, ongoing concerns about impulsivity, striking out behaviors. [facility]# [id number]
[2018-09-22] MEDS: Calcium Carb/Vit D 500 mg/200 U Tab PO SCH (08:20)
[2018-09-22] MEDS: Ferrous Sulfate 325 MG TAB PO SCH ×2 (08:21→16:15)
--- NOTE | 2018-09-22 11:00 | Internal Medicine Prog Note ---
Internal Medicine Subjective - Subjective Patient seen and examined:: chart reviewed Patient is:: awake, other (irritable, behaviour issues) Per staff patient has:: no adverse event Internal Medicine Objective - Results Recent Labs: Laboratory Last Values POC Glucose 203 MG/DL (70 - 105) H 09/19/18 23:29 - Physical Exam Vitals and I&O: Vital Signs Temp 98.2 F 09/22/18 06:31 Pulse 103 09/22/18 06:31 Resp 19 09/22/18 06:31 BP 118/68 09/22/18 06:31 Pulse Ox 100 09/22/18 06:31 Intake & Output 09/21/18 09/22/18 09/22/18 18:59 06:59 18:59 Intake Total 1500 240 Balance 1500 240 Intake: Oral 1500 240 Other: # Voids 3 3 # Bowel Movements 0 1 Active Medications: Current Medications Acetaminophen (Tylenol) 650 mg PO Q6HR PRN PRN Reason: Pain or Fever >101 Stop: 11/18/18 22:53 Last Admin: 09/21/18 11:00 Dose: 650 mg Acetaminophen/Hydrocodone Bitart ([place] 5mg/325mg) 1 tab PO Q6H PRN PRN Reason: Pain (Moderate) Stop: 11/18/18 22:53 Albuterol Sulfate (Albuterol 2.5mg/3ml Neb Ud) 2.5 mg HHN Q6HRT [facility] Stop: 11/19/18 07:59 Last Admin: 09/20/18 12:36 Dose: Not Given Amlodipine Besylate (Norvasc) 10 mg PO DAILY [facility] Stop: 11/19/18 08:59 Last Admin: 09/22/18 08:20 Dose: Not Given Ascorbic Acid (Vitamin C) 500 mg PO DAILY [facility] Stop: 11/19/18 08:59 Last Admin: 09/22/18 08:20 Dose: Not Given Aspirin (Ecotrin) 81 mg PO DAILY [facility] Stop: 11/19/18 08:59 Last Admin: 09/22/18 08:20 Dose: Not Given Bisacodyl (Dulcolax 10 Mg Supp) 10 mg RC DAILY PRN PRN Reason: Constipation Stop: 11/18/18 22:53 Calcium/Vitamin D (Oscal W/Vitamin D) 1 tab PO DAILY [facility] Stop: 11/19/18 08:59 Last Admin: 09/22/18 08:20 Dose: Not Given Carbidopa/Levodopa (Sinemet 25mg-100 Mg) 1 tab PO BID [facility] Stop: 11/19/18 08:59 Last Admin: 09/22/18 08:20 Dose: Not Given Divalproex Sodium (Depakote Dr) 500 mg PO BID [facility]; Protocol Stop: 11/19/18 08:59 Last Admin: 09/22/18 08:20 Dose: Not Given Docusate Sodium (Colace) 250 mg PO BID [facility] Stop: 11/19/18 08:59 Last Admin: 09/22/18 08:21 Dose: Not Given Famotidine (Pepcid) 20 mg PO BID [facility] Stop: 11/19/18 08:59 Last Admin: 09/22/18 08:21 Dose: Not Given Ferrous Sulfate (Iron) 325 mg PO BID [facility] Stop: 11/19/18 08:59 Last Admin: 09/22/18 08:21 Dose: Not Given Folic Acid (Folate) 1 mg PO DAILY [facility] Stop: 11/19/18 08:59 Last Admin: 09/22/18 08:21 Dose: Not Given Glipizide (Glucotrol) 2.5 mg PO QDAC [facility] Stop: 11/19/18 07:29 Last Admin: 09/22/18 06:51 Dose: Not Given Hydralazine HCl (Apresoline) 50 mg PO Q8HR [facility] Stop: 11/19/18 04:59 Last Admin: 09/22/18 05:24 Dose: Not Given Latanoprost (Xalatan 0.005% Ophth Soln) 1 drop LEFT EYE HS [facility] Stop: 11/19/18 20:59 Last Admin: 09/21/18 21:36 Dose: Not Given Lisinopril (Zestril) 10 mg PO BID [facility] Stop: 11/19/18 08:59 Last Admin: 09/22/18 08:21 Dose: Not Given Lorazepam (Ativan) 0.5 mg PO Q4HR PRN; Protocol PRN Reason: Anxiety Stop: 11/18/18 22:52 Last Admin: 09/21/18 11:00 Dose: 0.5 mg Magnesium Hydroxide (Milk Of Magnesia) 30 ml PO HS PRN PRN Reason: Constipation Stop: 11/18/18 22:53 Metformin HCl (Glucophage) 1,000 mg PO BIDWM [facility] Stop: 11/19/18 07:59 Last Admin: 09/22/18 09:51 Dose: Not Given Metoprolol Tartrate (Lopressor) 25 mg PO BID [facility] Stop: 11/19/18 08:59 Last Admin: 09/22/18 08:21 Dose: Not Given Quetiapine Fumarate (Seroquel) 200 mg PO HS [facility]; Protocol Stop: 11/19/18 20:59 Last Admin: 09/21/18 21:36 Dose: Not Given Quetiapine Fumarate (Seroquel) 50 mg PO DAILY [facility]; Protocol Stop: 11/20/18 08:59 Last Admin: 09/22/18 08:21 Dose: Not Given Zolpidem Tartrate (Ambien) 5 mg PO HS PRN PRN Reason: Insomnia Stop: 11/18/18 22:52 Last Admin: 09/20/18 20:27 Dose: 5 mg General: alert, demented HEENT: NC/AT Neck: Supple Lungs: CTAB Cardiovascular: RRR, Normal S1, Normal S2 Abdomen: soft, non-tender Extremities: clear Neurological: disorganized Internal Medicine Assmt/Plan - Assessment Assessment: Psychosis. Agitated and Irritated. Weakness. Paranoid Schizophrenia. Parkinson's Disease. Diabetes. Copd. Hx of Falls. - Plan Plan: Continuation of care. Continue present meds as directed. Psych consult/followup. Monitor Diabetic diet. Supportive care. Accu-checks twice daily, continue DM meds as directed. Fall precauton. Physical therapy. Occupational therapy. Continue current treatment plan as ordered. Nutritional Asmnt/Malnutr-PDOC - Dietary Evaluation Malnutrition Findings (Please click <Entered> for more info): Nutritional Asmnt/Malnutrition Start: 09/20/18 13: 47 Text: Status: Complete Freq: Protocol: Document 09/20/18 13:47 JL (Rec: 09/20/18 14:02 JL [email or web address]) Nutritional Asmnt/Malnutrition Patient General Information Diagnosis psychosis Pertinent Medical Hx/Surgical Hx COPD, schizophrenia, DM Subjective Information Consult received for elevated blood sugar. Pt was transfered from med surg floor. Pt was seen in patio at time of visit . Per nurse pt is easily agitated. Not able to provide nutrition education d/t pt mental status. Current Diet Order/ Nutrition [facility] Pertinent Medications vit C, oscal w/vit D, colace, pepcid, iron, folate, glucophage, seroquel Pertinent Labs 09/15 glucose 168 Nutritional Hx/Data Height 1.75 m Height (Calculated Centimeters) 175.3 Current Weight (lbs) 97.522 kg Weight (Calculated Kilograms) 97.5 Weight (Calculated Grams) 10425.4 [place] Body Weight 160 Body Mass Index (BMI) 31.7 Weight Status Obese GI Symptoms GI Symptoms None Last BM not indicated Difficult in: None Skin Integrity/Comment: intact Estimated Nutritional Goals BEE in Kcals: Adj wt of IBW Calories/Kcals/Kg 23-27 Kcals Calculated 5811-8895 Protein: Adj wt of IBW Protein g/k.8-1 Protein Calculated 63-79 Fluid: ml 1817-2133ml (1ml/kcal) Nutritional Problem 1. Problem Problem altered nutrition related labs Etiology hyperglycemia Signs/Symptoms: glucose 168 Malnutrition Alert Is there a minimum of two criteria No selected? Query Text:Check all the applicable criteria. A minimum of two criteria are recommended for diagnosis of either severe or non-severe malnutrition. Malnutrition Related to Morbid Obesity Malnutrition related to morbid obesity No Intervention/Recommendation Comments 1. Continue with [facility] 60gm diet as ordered. 2. Monitor PO intake, wt, labs and skin integrity 3. F/U as low risk in 7 days Expected Outcomes/Goals Expected Outcomes/Goals 1. PO intake to meet at least 75% of nutritional needs. 2. Wt stability, skin to remain intact, labs to approach WNL.
[2018-09-23] MEDS: Albuterol Nebulizer 2.5mg/3mL HHN SCH ×3 (06:52→20:11)
[2018-09-23] MEDS: Ferrous Sulfate 325 MG TAB PO SCH ×2 (08:45→16:53)
[2018-09-23] MEDS: Calcium Carb/Vit D 500 mg/200 U Tab PO SCH (08:45)
--- NOTE | 2018-09-23 14:43 | Internal Medicine Prog Note ---
Internal Medicine Subjective - Subjective Service Date: 09/23/18 Patient seen and examined:: with staff, chart reviewed Patient is:: awake, agitated, other (irritable, behaviour issues) Patient Complaints of:: other (Remains Irritatable, Mood swings.) Per staff patient has:: no adverse event, no episodes of fall Internal Medicine Objective - Results Recent Labs: Laboratory Last Values POC Glucose 203 MG/DL (70 - 105) H 09/19/18 23:29 - Physical Exam Vitals and I&O: Vital Signs Temp 99.5 F 09/22/18 20:20 Pulse 71 09/23/18 12:21 Resp 18 09/23/18 12:21 BP 137/75 09/22/18 20:21 Pulse Ox 97 09/23/18 12:21 Intake & Output 09/22/18 09/23/18 09/23/18 18:59 06:59 18:59 Intake Total 240 Balance 240 Intake: Oral 240 Other: # Voids 3 1 # Bowel Movements 2 Active Medications: Current Medications Acetaminophen (Tylenol) 650 mg PO Q6HR PRN PRN Reason: Pain or Fever >101 Stop: 11/18/18 22:53 Last Admin: 09/21/18 11:00 Dose: 650 mg Acetaminophen/Hydrocodone Bitart ([place] 5mg/325mg) 1 tab PO Q6H PRN PRN Reason: Pain (Moderate) Stop: 11/18/18 22:53 Albuterol Sulfate (Albuterol 2.5mg/3ml Neb Ud) 2.5 mg HHN Q6HRT [facility] Stop: 11/19/18 07:59 Last Admin: 09/23/18 12:11 Dose: Not Given Amlodipine Besylate (Norvasc) 10 mg PO DAILY [facility] Stop: 11/19/18 08:59 Last Admin: 09/23/18 08:44 Dose: Not Given Ascorbic Acid (Vitamin C) 500 mg PO DAILY [facility] Stop: 11/19/18 08:59 Last Admin: 09/23/18 08:44 Dose: Not Given Aspirin (Ecotrin) 81 mg PO DAILY [facility] Stop: 11/19/18 08:59 Last Admin: 09/23/18 08:45 Dose: Not Given Bisacodyl (Dulcolax 10 Mg Supp) 10 mg RC DAILY PRN PRN Reason: Constipation Stop: 11/18/18 22:53 Calcium/Vitamin D (Oscal W/Vitamin D) 1 tab PO DAILY [facility] Stop: 11/19/18 08:59 Last Admin: 09/23/18 08:45 Dose: Not Given Carbidopa/Levodopa (Sinemet 25mg-100 Mg) 1 tab PO BID [facility] Stop: 11/19/18 08:59 Last Admin: 09/23/18 08:45 Dose: Not Given Divalproex Sodium (Depakote Dr) 500 mg PO BID [facility]; Protocol Stop: 11/19/18 08:59 Last Admin: 09/23/18 08:45 Dose: Not Given Docusate Sodium (Colace) 250 mg PO BID [facility] Stop: 11/19/18 08:59 Last Admin: 09/23/18 08:45 Dose: Not Given Famotidine (Pepcid) 20 mg PO BID [facility] Stop: 11/19/18 08:59 Last Admin: 09/23/18 08:45 Dose: Not Given Ferrous Sulfate (Iron) 325 mg PO BID [facility] Stop: 11/19/18 08:59 Last Admin: 09/23/18 08:45 Dose: Not Given Folic Acid (Folate) 1 mg PO DAILY [facility] Stop: 11/19/18 08:59 Last Admin: 09/23/18 08:45 Dose: Not Given Glipizide (Glucotrol) 2.5 mg PO QDAC [facility] Stop: 11/19/18 07:29 Last Admin: 09/23/18 07:53 Dose: Not Given Hydralazine HCl (Apresoline) 50 mg PO Q8HR [facility] Stop: 11/19/18 04:59 Last Admin: 09/23/18 13:29 Dose: Not Given Latanoprost (Xalatan 0.005% [facility] Soln) 1 drop LEFT EYE HS [facility] Stop: 11/19/18 20:59 Last Admin: 09/22/18 20:23 Dose: 1 drop Lisinopril (Zestril) 10 mg PO BID [facility] Stop: 11/19/18 08:59 Last Admin: 09/23/18 08:45 Dose: Not Given Lorazepam (Ativan) 0.5 mg PO Q4HR PRN; Protocol PRN Reason: Anxiety Stop: 11/18/18 22:52 Last Admin: 09/22/18 20:23 Dose: 0.5 mg Magnesium Hydroxide (Milk Of Magnesia) 30 ml PO HS PRN PRN Reason: Constipation Stop: 11/18/18 22:53 Metformin HCl (Glucophage) 1,000 mg PO BIDWM [facility] Stop: 11/19/18 07:59 Last Admin: 09/23/18 08:44 Dose: Not Given Metoprolol Tartrate (Lopressor) 25 mg PO BID [facility] Stop: 11/19/18 08:59 Last Admin: 09/23/18 08:45 Dose: Not Given Quetiapine Fumarate (Seroquel) 200 mg PO HS [facility]; Protocol Stop: 11/19/18 20:59 Last Admin: 09/22/18 20:23 Dose: 200 mg Quetiapine Fumarate (Seroquel) 50 mg PO DAILY [facility]; Protocol Stop: 11/20/18 08:59 Last Admin: 09/23/18 08:46 Dose: Not Given Zolpidem Tartrate (Ambien) 5 mg PO HS PRN PRN Reason: Insomnia Stop: 11/18/18 22:52 Last Admin: 09/22/18 20:23 Dose: 5 mg General: alert, demented HEENT: NC/AT Neck: Supple Lungs: CTAB Cardiovascular: RRR, Normal S1, Normal S2 Abdomen: soft, non-tender Extremities: clear Neurological: no change, disorganized Internal Medicine Assmt/Plan - Assessment Assessment: Psychosis. Agitated and Irritated. Weakness. Paranoid Schizophrenia. Parkinson's Disease. Diabetes. Copd. Hx of Falls. - Plan Plan: Continuation of care. Continue present meds as directed. Psych consult/followup. Monitor Diabetic diet. Supportive care. Accu-checks twice daily, continue DM meds as directed. Fall precauton. Physical therapy. Occupational therapy. Continue current treatment plan as ordered. Nutritional Asmnt/Malnutr-PDOC - Dietary Evaluation Malnutrition Findings (Please click <Entered> for more info): Nutritional Asmnt/Malnutrition Start: 09/20/18 13: 47 Text: Status: Complete Freq: Protocol: Document 09/20/18 13:47 LCHENG (Rec: 09/20/18 14:02 LCASHLEYG [email or web address]) Nutritional Asmnt/Malnutrition Patient General Information Diagnosis psychosis Pertinent Medical Hx/Surgical Hx COPD, schizophrenia, DM Subjective Information Consult received for elevated blood sugar. Pt was transfered from med surg floor. [facility] . Per nurse pt is easily agitated. Not able to provide nutrition education d/t pt mental status. Current Diet [facility]/ [facility] Pertinent Medications vit C, oscal w/vit D, colace, pepcid, iron, folate, glucophage, seroquel Pertinent Labs 09/15 glucose 168 Nutritional Hx/Data Height 1.75 m Height (Calculated Centimeters) 175.3 Current Weight (lbs) 97.522 kg Weight (Calculated Kilograms) 97.5 Weight (Calculated Grams) 05333.4 [place] Body Weight 160 Body Mass Index (BMI) 31.7 Weight Status Obese GI Symptoms GI Symptoms None Last BM not indicated Difficult in: None Skin Integrity/Comment: intact Estimated Nutritional Goals BEE in Kcals: Adj wt of IBW Calories/Kcals/Kg 23-27 Kcals Calculated 5891-4942 Protein: Adj wt of IBW Protein g/k.8-1 Protein Calculated 63-79 Fluid: ml 1817-2133ml (1ml/kcal) Nutritional Problem 1. Problem Problem altered nutrition related labs Etiology hyperglycemia Signs/Symptoms: glucose 168 Malnutrition Alert Is there a minimum of two criteria No selected? Query Text:Check all the applicable criteria. A minimum of two criteria are recommended for diagnosis of either severe or non-severe malnutrition. Malnutrition Related to Morbid Obesity Malnutrition related to morbid obesity No Intervention/Recommendation Comments 1. Continue with [facility] 60gm diet as ordered. 2. Monitor PO intake, wt, labs and skin integrity 3. F/U as low risk in 7 days Expected Outcomes/Goals Expected Outcomes/Goals 1. PO intake to meet at least 75% of nutritional needs. 2. Wt stability, skin to remain intact, labs to approach WNL.
--- NOTE | 2018-09-23 16:33 | Progress Notes ---
DATE: 09/23/2018 DATE OF SERVICE: 09/23/2018 SUBJECTIVE: The patient is in the hospital, unruly, agitated, focused on leaving, impoverished thought processes, irritable, not really wanting to talk to me. The patient , still yelling, verbally aggressive, disorganized thoughts, confused, labile, easily agitated, concerns he may strike out at others. ASSESSMENT: Ongoing behaviors, unruly behaviors. Recent dose adjustments of medications. We will continue to monitor. Medications are noted. JOB# [id number]
[2018-09-24] MEDS: Albuterol Nebulizer 2.5mg/3mL HHN SCH ×4 (00:05→21:33)
[2018-09-24] MEDS: Ferrous Sulfate 325 MG TAB PO SCH ×2 (09:18→16:33)
[2018-09-24] MEDS: Calcium Carb/Vit D 500 mg/200 U Tab PO SCH (09:18)
[2018-09-24] MEDS: Eucerin Cream 16 oz Jar TP SCH ×2 (09:18→16:33)
--- NOTE | 2018-09-24 20:59 | Internal Medicine Prog Note ---
Internal Medicine Subjective - Subjective Service Date: 09/24/18 Patient seen and examined:: with staff, chart reviewed Patient is:: awake, verbal, agitated, other (very irritable, behaviour issues) Patient Complaints of:: other ( Mood swings, behavioral issues.) Per staff patient has:: no adverse event, no episodes of fall Internal Medicine Objective - Results Recent Labs: Laboratory Last Values POC Glucose 203 MG/DL (70 - 105) H 09/19/18 23:29 - Physical Exam Vitals and I&O: Vital Signs Temp 97.9 F 09/24/18 20:01 Pulse 98 09/24/18 20:32 Resp 20 09/24/18 20:01 BP 135/97 09/24/18 20:32 Pulse Ox 96 09/24/18 20:01 Intake & Output 09/24/18 09/24/18 09/25/18 06:59 18:59 06:59 Intake Total 120 900 240 Output Total 1 Balance 120 900 239 Intake: Oral 120 900 240 Output: Urine/Stool Mix 1 Other: # Voids 3 3 1 # Bowel Movements 0 0 1 Active Medications: Current Medications Acetaminophen (Tylenol) 650 mg PO Q6HR PRN PRN Reason: Pain or Fever >101 Stop: 11/18/18 22:53 Last Admin: 09/21/18 11:00 Dose: 650 mg Acetaminophen/Hydrocodone Bitart ([place] 5mg/325mg) 1 tab PO Q6H PRN PRN Reason: Pain (Moderate) Stop: 11/18/18 22:53 Albuterol Sulfate (Albuterol 2.5mg/3ml Neb Ud) 2.5 mg HHN Q6HRT [facility] Stop: 11/19/18 07:59 Last Admin: 09/24/18 14:34 Dose: Not Given Amlodipine Besylate (Norvasc) 10 mg PO DAILY [facility] Stop: 11/19/18 08:59 Last Admin: 09/24/18 09:10 Dose: Not Given Ascorbic Acid (Vitamin C) 500 mg PO DAILY [facility] Stop: 11/19/18 08:59 Last Admin: 09/24/18 09:10 Dose: Not Given Aspirin (Ecotrin) 81 mg PO DAILY [facility] Stop: 11/19/18 08:59 Last Admin: 09/24/18 09:11 Dose: Not Given Bisacodyl (Dulcolax 10 Mg Supp) 10 mg RC DAILY PRN PRN Reason: Constipation Stop: 11/18/18 22:53 Calcium/Vitamin D (Oscal W/Vitamin D) 1 tab PO DAILY [facility] Stop: 11/19/18 08:59 Last Admin: 09/24/18 09:18 Dose: Not Given Carbidopa/Levodopa (Sinemet 25mg-100 Mg) 1 tab PO BID [facility] Stop: 11/19/18 08:59 Last Admin: 09/24/18 16:33 Dose: Not Given Divalproex Sodium (Depakote Dr) 500 mg PO BID [facility]; Protocol Stop: 11/19/18 08:59 Last Admin: 09/24/18 16:33 Dose: Not Given Docusate Sodium (Colace) 250 mg PO BID [facility] Stop: 11/19/18 08:59 Last Admin: 09/24/18 16:33 Dose: Not Given Famotidine (Pepcid) 20 mg PO BID [facility] Stop: 11/19/18 08:59 Last Admin: 09/24/18 16:33 Dose: Not Given Ferrous Sulfate (Iron) 325 mg PO BID [facility] Stop: 11/19/18 08:59 Last Admin: 09/24/18 16:33 Dose: Not Given Folic Acid (Folate) 1 mg PO DAILY [facility] Stop: 11/19/18 08:59 Last Admin: 09/24/18 09:18 Dose: Not Given Glipizide (Glucotrol) 2.5 mg PO QDAC [facility] Stop: 11/19/18 07:29 Last Admin: 09/24/18 06:36 Dose: Not Given Hydralazine HCl (Apresoline) 50 mg PO Q8HR [facility] Stop: 11/19/18 04:59 Last Admin: 09/24/18 20:32 Dose: 50 mg Latanoprost (Xalatan 0.005% Ophth Soln) 1 drop LEFT EYE HS [facility] Stop: 11/19/18 20:59 Last Admin: 09/23/18 20:39 Dose: 1 drop Lisinopril (Zestril) 10 mg PO BID [facility] Stop: 11/19/18 08:59 Last Admin: 09/24/18 16:33 Dose: Not Given Lorazepam (Ativan) 0.5 mg PO Q4HR PRN; Protocol PRN Reason: Anxiety Stop: 11/18/18 22:52 Last Admin: 09/23/18 20:50 Dose: 0.5 mg Magnesium Hydroxide (Milk Of Magnesia) 30 ml PO HS PRN PRN Reason: Constipation Stop: 11/18/18 22:53 Metformin HCl (Glucophage) 1,000 mg PO BIDWM [facility] Stop: 11/19/18 07:59 Last Admin: 09/24/18 09:10 Dose: Not Given Metoprolol Tartrate (Lopressor) 25 mg PO BID [facility] Stop: 11/19/18 08:59 Last Admin: 09/24/18 16:33 Dose: Not Given Multi-Ingredient Cream (Eucerin Cream) 1 appl TP BID [facility] Stop: 11/23/18 08:59 Last Admin: 09/24/18 16:33 Dose: Not Given Quetiapine Fumarate (Seroquel) 200 mg PO HS [facility]; Protocol Stop: 11/19/18 20:59 Last Admin: 09/24/18 20:32 Dose: 200 mg Quetiapine Fumarate (Seroquel) 25 mg PO DAILY [facility]; Protocol Stop: 11/24/18 08:59 Zolpidem Tartrate (Ambien) 5 mg PO HS PRN PRN Reason: Insomnia Stop: 11/18/18 22:52 Last Admin: 09/24/18 20:32 Dose: 5 mg Physical Exam: 72 y/o male patient remains very aggressive and irritable towards staff. Poor insight. General: alert, demented HEENT: NC/AT Neck: Supple, No JVD Lungs: CTAB Cardiovascular: RRR, Normal S1, Normal S2 Abdomen: soft, non-tender Extremities: clear Neurological: no change, disorganized Internal Medicine Assmt/Plan - Assessment Assessment: Psychosis. Agitated and Irritated. Weakness. Paranoid Schizophrenia. Parkinson's Disease. Diabetes. Copd. Hx of Falls. - Plan Plan: Continuation of care. Continue present meds as directed. Psych consult/followup. Monitor Diabetic diet. Supportive care. Accu-checks twice daily, continue DM meds as directed. Fall precauton. Physical therapy. Occupational therapy. Continue current treatment plan as ordered. Nutritional Asmnt/Malnutr-PDOC - Dietary Evaluation Malnutrition Findings (Please click <Entered> for more info): Nutritional Asmnt/Malnutrition Start: 09/20/18 13: 47 Text: Status: Complete Freq: Protocol: Document 09/20/18 13:47 LCHENG (Rec: 09/20/18 14:02 LCHENG [email or web address]) Nutritional Asmnt/Malnutrition Patient General Information Diagnosis psychosis Pertinent Medical Hx/Surgical Hx COPD, schizophrenia, DM Subjective Information Consult received for elevated blood sugar. Pt was transfered from med surg floor. Pt was seen in [place] at time of visit . Per nurse pt is easily agitated. Not able to provide nutrition education d/t pt mental status. Current Diet Order/ [facility] Pertinent Medications vit C, oscal w/vit D, colace, pepcid, iron, folate, glucophage, seroquel Pertinent Labs 09/15 glucose 168 Nutritional Hx/Data Height 1.75 m Height (Calculated Centimeters) 175.3 Current Weight (lbs) 97.522 kg Weight (Calculated Kilograms) 97.5 Weight (Calculated Grams) 00532.4 [place] Body Weight 160 Body Mass Index (BMI) 31.7 Weight Status Obese GI Symptoms GI Symptoms None Last BM not indicated Difficult in: None Skin Integrity/Comment: intact Estimated Nutritional Goals BEE in Kcals: Adj wt of IBW Calories/Kcals/Kg 23-27 Kcals Calculated 8886-7049 Protein: Adj wt of IBW Protein g/k.8-1 Protein Calculated 63-79 Fluid: ml 1817-2133ml (1ml/kcal) Nutritional Problem 1. Problem Problem altered nutrition related labs Etiology hyperglycemia Signs/Symptoms: glucose 168 Malnutrition Alert Is there a minimum of two criteria No selected? Query Text:Check all the applicable criteria. A minimum of two criteria are recommended for diagnosis of either severe or non-severe malnutrition. Malnutrition Related to Morbid Obesity Malnutrition related to morbid obesity No Intervention/Recommendation Comments 1. Continue with [facility] 60gm diet as ordered. 2. Monitor PO intake, wt, labs and skin integrity 3. F/U as low risk in 7 days Expected Outcomes/Goals Expected Outcomes/Goals 1. PO intake to meet at least 75% of nutritional needs. 2. Wt stability, skin to remain intact, labs to approach WNL.
[2018-09-25] MEDS: Albuterol Nebulizer 2.5mg/3mL HHN SCH ×4 (00:05→19:52)
--- NOTE | 2018-09-25 00:28 | Progress Notes ---
DATE: 09/24/2018 The patient in the hospital had been really unruly, agitated, not really following unit rules and direction, sometimes refusing medications, slept for about 8 hours, intermittent yelling episodes, aggressive behaviors. He is somewhat calmer versus before. No emergency medications. We will continue medications at current dosing. The patient actually wants me to decrease his medications. We will lower down the a.m. dose of Seroquel to 25 mg complaining of over sedation. ASSESSMENT: The patient ruminative, refusing care, treatment, ongoing safety concerns. PLAN: We will continue to monitor, taper Seroquel. JOB# [id number]
[2018-09-25] MEDS: Ferrous Sulfate 325 MG TAB PO SCH ×2 (09:17→16:45)
[2018-09-25] MEDS: Eucerin Cream 16 oz Jar TP SCH ×2 (09:17→16:45)
[2018-09-25] MEDS: Calcium Carb/Vit D 500 mg/200 U Tab PO SCH (09:17)
--- NOTE | 2018-09-25 13:16 | Internal Medicine Prog Note ---
Internal Medicine Subjective - Subjective Service Date: 09/25/18 Patient is:: awake, verbal, agitated, other (very irritable, behaviour issues) Patient Complaints of:: other ( Mood swings, behavioral issues.) Per staff patient has:: no adverse event, no episodes of fall Internal Medicine Objective - Results Recent Labs: Laboratory Last Values POC Glucose 203 MG/DL (70 - 105) H 09/19/18 23:29 - Physical Exam Vitals and I&O: Vital Signs Temp 98.5 F 09/25/18 05:31 Pulse 85 09/25/18 12:29 Resp 20 09/25/18 12:29 BP 125/89 09/25/18 05:44 Pulse Ox 97 09/25/18 12:29 Intake & Output 09/24/18 09/25/18 09/25/18 18:59 06:59 18:59 Intake Total 900 240 Output Total 1 Balance 900 239 Intake: Oral 900 240 Output: Stool 0 Urine/Stool Mix 1 Other: # Voids 3 2 # Bowel Movements 0 1 Active Medications: Current Medications Acetaminophen (Tylenol) 650 mg PO Q6HR PRN PRN Reason: Pain or Fever >101 Stop: 11/18/18 22:53 Last Admin: 09/21/18 11:00 Dose: 650 mg Acetaminophen/Hydrocodone Bitart ([place] 5mg/325mg) 1 tab PO Q6H PRN PRN Reason: Pain (Moderate) Stop: 11/18/18 22:53 Albuterol Sulfate (Albuterol 2.5mg/3ml Neb Ud) 2.5 mg HHN Q6HRT [facility] Stop: 11/19/18 07:59 Last Admin: 09/25/18 12:29 Dose: Not Given Amlodipine Besylate (Norvasc) 10 mg PO DAILY [facility] Stop: 11/19/18 08:59 Last Admin: 09/25/18 09:16 Dose: Not Given Ascorbic Acid (Vitamin C) 500 mg PO DAILY [facility] Stop: 11/19/18 08:59 Last Admin: 09/25/18 09:16 Dose: Not Given Aspirin (Ecotrin) 81 mg PO DAILY [facility] Stop: 11/19/18 08:59 Last Admin: 09/25/18 09:17 Dose: Not Given Bisacodyl (Dulcolax 10 Mg Supp) 10 mg RC DAILY PRN PRN Reason: Constipation Stop: 11/18/18 22:53 Calcium/Vitamin D (Oscal W/Vitamin D) 1 tab PO DAILY [facility] Stop: 11/19/18 08:59 Last Admin: 09/25/18 09:17 Dose: Not Given Carbidopa/Levodopa (Sinemet 25mg-100 Mg) 1 tab PO BID [facility] Stop: 11/19/18 08:59 Last Admin: 09/25/18 09:17 Dose: Not Given Divalproex Sodium (Depakote Dr) 500 mg PO BID [facility]; Protocol Stop: 11/19/18 08:59 Last Admin: 09/25/18 09:17 Dose: Not Given Docusate Sodium (Colace) 250 mg PO BID [facility] Stop: 11/19/18 08:59 Last Admin: 09/25/18 09:17 Dose: Not Given Famotidine (Pepcid) 20 mg PO BID [facility] Stop: 11/19/18 08:59 Last Admin: 09/25/18 09:17 Dose: Not Given Ferrous Sulfate (Iron) 325 mg PO BID [facility] Stop: 11/19/18 08:59 Last Admin: 09/25/18 09:17 Dose: Not Given Folic Acid (Folate) 1 mg PO DAILY [facility] Stop: 11/19/18 08:59 Last Admin: 09/25/18 09:17 Dose: Not Given Glipizide (Glucotrol) 2.5 mg PO QDAC [facility] Stop: 11/19/18 07:29 Last Admin: 09/25/18 06:34 Dose: 2.5 mg Hydralazine HCl (Apresoline) 50 mg PO Q8HR [facility] Stop: 11/19/18 04:59 Last Admin: 09/25/18 13:10 Dose: Not Given Latanoprost (Xalatan 0.005% Ophth Soln) 1 drop LEFT EYE HS [facility] Stop: 11/19/18 20:59 Last Admin: 09/24/18 20:35 Dose: 1 drop Lisinopril (Zestril) 10 mg PO BID [facility] Stop: 11/19/18 08:59 Last Admin: 09/25/18 09:17 Dose: Not Given Lorazepam (Ativan) 0.5 mg PO Q4HR PRN; Protocol PRN Reason: Anxiety Stop: 11/18/18 22:52 Last Admin: 09/23/18 20:50 Dose: 0.5 mg Magnesium Hydroxide (Milk Of Magnesia) 30 ml PO HS PRN PRN Reason: Constipation Stop: 11/18/18 22:53 Metformin HCl (Glucophage) 1,000 mg PO BIDWM [facility] Stop: 11/19/18 07:59 Last Admin: 09/25/18 09:16 Dose: Not Given Metoprolol Tartrate (Lopressor) 25 mg PO BID [facility] Stop: 11/19/18 08:59 Last Admin: 09/25/18 09:17 Dose: Not Given Multi-Ingredient Cream (Eucerin Cream) 1 appl TP BID [facility] Stop: 11/23/18 08:59 Last Admin: 09/25/18 09:17 Dose: Not Given Quetiapine Fumarate (Seroquel) 200 mg PO HS [facility]; Protocol Stop: 11/19/18 20:59 Last Admin: 09/24/18 20:32 Dose: 200 mg Quetiapine Fumarate (Seroquel) 25 mg PO DAILY [facility]; Protocol Stop: 11/24/18 08:59 Last Admin: 09/25/18 09:17 Dose: Not Given Zolpidem Tartrate (Ambien) 5 mg PO HS PRN PRN Reason: Insomnia Stop: 11/18/18 22:52 Last Admin: 09/24/18 20:32 Dose: 5 mg General: alert, demented HEENT: NC/AT Neck: Supple, No JVD Lungs: CTAB Cardiovascular: RRR, Normal S1, Normal S2 Abdomen: soft, non-tender Extremities: clear Neurological: no change, disorganized Internal Medicine Assmt/Plan - Assessment Assessment: Psychosis. Agitated and Irritated. Weakness. Paranoid Schizophrenia. Parkinson's Disease. Diabetes. Copd. Hx of Falls. - Plan Plan: Continuation of care. Continue present meds as directed. Psych consult/followup. Monitor Diabetic diet. Supportive care. Accu-checks twice daily, continue DM meds as directed. Fall precauton. Physical therapy. Occupational therapy. Continue current treatment plan as ordered. Nutritional Asmnt/Malnutr-PDOC - Dietary Evaluation Malnutrition Findings (Please click <Entered> for more info): Nutritional Asmnt/Malnutrition Start: 09/20/18 13: 47 Text: Status: Complete Freq: Protocol: Document 09/20/18 13:47 LCASHLEYG (Rec: 09/20/18 14:02 NADINEASHLEYShivani [email or web address]) Nutritional Asmnt/Malnutrition Patient General Information Diagnosis psychosis Pertinent Medical Hx/Surgical Hx COPD, schizophrenia, DM Subjective Information Consult received for elevated blood sugar. Pt was transfered from med surg floor. [facility] . Per nurse pt is easily agitated. Not able to provide nutrition education d/t pt mental status. Current Diet Order/ Nutrition Support [facility] 60gm Pertinent Medications vit C, oscal w/vit D, colace, pepcid, iron, folate, glucophage, seroquel Pertinent Labs 09/15 glucose 168 Nutritional Hx/Data Height 5 ft 9 in Height (Calculated Centimeters) 175.3 Current Weight (lbs) 215 lb Weight (Calculated Kilograms) 97.5 Weight (Calculated Grams) 65262.4 [place] Body Weight 160 Body Mass Index (BMI) 31.7 Weight Status Obese GI Symptoms GI Symptoms None Last BM not indicated Difficult in: None Skin Integrity/Comment: intact Estimated Nutritional Goals BEE in Kcals: Adj wt of IBW Calories/Kcals/Kg 23-27 Kcals Calculated 2215-6615 Protein: Adj wt of IBW Protein g/k.8-1 Protein Calculated 63-79 Fluid: ml 1817-2133ml (1ml/kcal) Nutritional Problem 1. Problem Problem altered nutrition related labs Etiology hyperglycemia Signs/Symptoms: glucose 168 Malnutrition Alert Is there a minimum of two criteria No selected? Query Text:Check all the applicable criteria. A minimum of two criteria are recommended for diagnosis of either severe or non-severe malnutrition. Malnutrition Related to Morbid Obesity Malnutrition related to morbid obesity No Intervention/Recommendation Comments 1. [facility] as ordered. 2. Monitor PO intake, wt, labs and skin integrity 3. F/U as low risk in 7 days Expected Outcomes/Goals Expected Outcomes/Goals 1. PO intake to meet at least 75% of nutritional needs. 2. Wt stability, skin to remain intact, labs to approach WNL.
[2018-09-26] MEDS: Albuterol Nebulizer 2.5mg/3mL HHN SCH ×4 (01:00→19:08)
[2018-09-26] MEDS: Calcium Carb/Vit D 500 mg/200 U Tab PO SCH (09:21)
[2018-09-26] MEDS: Ferrous Sulfate 325 MG TAB PO SCH (09:21)
[2018-09-26] MEDS: Eucerin Cream 16 oz Jar TP SCH (09:22)
--- NOTE | 2018-09-26 12:37 | Progress Notes ---
DATE: 09/25/2018 A 72-year-old male who seems generally calmer, more cooperative, still with some yelling episodes, easily irritable, agitated. Tolerant of medications, tolerant of medication adjustments. Had fair sleep, poor appetite. Ongoing concerns about impulsivity, ongoing concerns about acting out behaviors, striking out behaviors given how aggressive he had been on the Med-Surg unit. No medication side effects noted. MEDICATIONS: Reviewed. ASSESSMENT: The patient seems to be calmer, showing some signs of improvement, ongoing concerns about irritability, impulsivities. PLAN: We will continue to monitor, adjust medications, titrate medications as needed. We will confirm a safe disposition plan with the case management rn. [facility]# [id number]
--- NOTE | 2018-09-26 12:56 | Internal Medicine Prog Note ---
Internal Medicine Subjective - Subjective Service Date: 09/26/18 Patient is:: awake, verbal, agitated, other (very irritable, behaviour issues) Patient Complaints of:: other ( Mood swings, behavioral issues.) Per staff patient has:: no adverse event, no episodes of fall Internal Medicine Objective - Results Recent Labs: Laboratory Last Values POC Glucose 203 MG/DL (70 - 105) H 09/19/18 23:29 - Physical Exam Vitals and I&O: Vital Signs Temp 97.7 F 09/26/18 05:14 Pulse 94 09/26/18 07:17 Resp 18 09/26/18 07:17 BP 108/71 09/26/18 05:50 Pulse Ox 96 09/26/18 07:17 Intake & Output 09/25/18 09/26/18 09/26/18 18:59 06:59 18:59 Intake Total 240 Balance 240 Intake: Oral 240 Other: # Voids 3 2 # Bowel Movements 0 0 Active Medications: Current Medications Acetaminophen (Tylenol) 650 mg PO Q6HR PRN PRN Reason: Pain or Fever >101 Stop: 11/18/18 22:53 Last Admin: 09/21/18 11:00 Dose: 650 mg Acetaminophen/Hydrocodone Bitart ([place] 5mg/325mg) 1 tab PO Q6H PRN PRN Reason: Pain (Moderate) Stop: 11/18/18 22:53 Albuterol Sulfate (Albuterol 2.5mg/3ml Neb Ud) 2.5 mg HHN Q6HRT [facility] Stop: 11/19/18 07:59 Last Admin: 09/26/18 07:16 Dose: Not Given Amlodipine Besylate (Norvasc) 10 mg PO DAILY [facility] Stop: 11/19/18 08:59 Last Admin: 09/26/18 09:22 Dose: Not Given Ascorbic Acid (Vitamin C) 500 mg PO DAILY [facility] Stop: 11/19/18 08:59 Last Admin: 09/26/18 09:21 Dose: 500 mg Aspirin (Ecotrin) 81 mg PO DAILY [facility] Stop: 11/19/18 08:59 Last Admin: 09/26/18 09:22 Dose: 81 mg Bisacodyl (Dulcolax 10 Mg Supp) 10 mg RC DAILY PRN PRN Reason: Constipation Stop: 11/18/18 22:53 Calcium/Vitamin D (Oscal W/Vitamin D) 1 tab PO DAILY [facility] Stop: 11/19/18 08:59 Last Admin: 09/26/18 09:21 Dose: 1 tab Carbidopa/Levodopa (Sinemet 25mg-100 Mg) 1 tab PO BID [facility] Stop: 11/19/18 08:59 Last Admin: 09/26/18 09:22 Dose: 1 tab Divalproex Sodium (Depakote Dr) 500 mg PO BID [facility]; Protocol Stop: 11/19/18 08:59 Last Admin: 09/26/18 09:21 Dose: 500 mg Docusate Sodium (Colace) 250 mg PO BID [facility] Stop: 11/19/18 08:59 Last Admin: 09/26/18 09:22 Dose: 250 mg Famotidine (Pepcid) 20 mg PO BID [facility] Stop: 11/19/18 08:59 Last Admin: 09/26/18 09:21 Dose: 20 mg Ferrous Sulfate (Iron) 325 mg PO BID [facility] Stop: 11/19/18 08:59 Last Admin: 09/26/18 09:21 Dose: 325 mg Folic Acid (Folate) 1 mg PO DAILY [facility] Stop: 11/19/18 08:59 Last Admin: 09/26/18 09:21 Dose: 1 mg Glipizide (Glucotrol) 2.5 mg PO QDAC [facility] Stop: 11/19/18 07:29 Last Admin: 09/26/18 06:49 Dose: 2.5 mg Hydralazine HCl (Apresoline) 50 mg PO Q8HR [facility] Stop: 11/19/18 04:59 Last Admin: 09/26/18 05:50 Dose: Not Given Latanoprost (Xalatan 0.005% Ophth Soln) 1 drop LEFT EYE HS [facility] Stop: 11/19/18 20:59 Last Admin: 09/25/18 21:31 Dose: 1 drop Lisinopril (Zestril) 10 mg PO BID [facility] Stop: 11/19/18 08:59 Last Admin: 09/26/18 09:23 Dose: Not Given Lorazepam (Ativan) 0.5 mg PO Q4HR PRN; Protocol PRN Reason: Anxiety Stop: 11/18/18 22:52 Last Admin: 09/23/18 20:50 Dose: 0.5 mg Magnesium Hydroxide (Milk Of Magnesia) 30 ml PO HS PRN PRN Reason: Constipation Stop: 11/18/18 22:53 Metformin HCl (Glucophage) 1,000 mg PO BIDWM [facility] Stop: 11/19/18 07:59 Last Admin: 09/26/18 09:22 Dose: Not Given Metoprolol Tartrate (Lopressor) 25 mg PO BID [facility] Stop: 11/19/18 08:59 Last Admin: 09/26/18 09:23 Dose: Not Given Multi-Ingredient Cream (Eucerin Cream) 1 appl TP BID [facility] Stop: 11/23/18 08:59 Last Admin: 09/26/18 09:22 Dose: Not Given Quetiapine Fumarate (Seroquel) 200 mg PO HS [facility]; Protocol Stop: 11/19/18 20:59 Last Admin: 09/25/18 21:29 Dose: 200 mg Quetiapine Fumarate (Seroquel) 25 mg PO DAILY [facility]; Protocol Stop: 11/24/18 08:59 Last Admin: 09/26/18 09:22 Dose: 25 mg Zolpidem Tartrate (Ambien) 5 mg PO HS PRN PRN Reason: Insomnia Stop: 11/18/18 22:52 Last Admin: 09/24/18 20:32 Dose: 5 mg General: alert, demented HEENT: NC/AT Neck: Supple, No JVD Lungs: CTAB Cardiovascular: RRR, Normal S1, Normal S2 Abdomen: soft, non-tender Extremities: clear Neurological: no change, disorganized Internal Medicine Assmt/Plan - Assessment Assessment: Psychosis. Agitated and Irritated. Weakness. Paranoid Schizophrenia. Parkinson's Disease. Diabetes. Copd. Hx of Falls. - Plan Plan: Continuation of care. Continue present meds as directed. Psych consult/followup. Monitor Diabetic diet. Supportive care. Accu-checks twice daily, continue DM meds as directed. Fall precauton. Physical therapy. Occupational therapy. Continue current treatment plan as ordered. Nutritional Asmnt/Malnutr-PDOC - Dietary Evaluation Malnutrition Findings (Please click <Entered> for more info): Nutritional Asmnt/Malnutrition Start: 09/20/18 13: 47 Text: Status: Complete Freq: Protocol: Document 09/20/18 13:47 JL (Rec: 09/20/18 14:02 JL [email or web address]) Nutritional Asmnt/Malnutrition Patient General Information Diagnosis psychosis Pertinent Medical Hx/Surgical Hx COPD, schizophrenia, DM Subjective Information Consult received for elevated blood sugar. Pt was transfered from med surg floor. Pt was seen in patio at time of visit . Per nurse pt is easily agitated. Not able to provide nutrition education d/t pt mental status. Current Diet Order/ Nutrition Support CCHO 60gm Pertinent Medications vit C, oscal w/vit D, colace, pepcid, iron, folate, glucophage, seroquel Pertinent Labs 09/15 glucose 168 Nutritional Hx/Data Height 5 ft 9 in Height (Calculated Centimeters) 175.3 Current Weight (lbs) 215 lb Weight (Calculated Kilograms) 97.5 Weight (Calculated Grams) 26901.4 [place] Body Weight 160 Body Mass Index (BMI) 31.7 Weight Status Obese GI Symptoms GI Symptoms None Last BM not indicated Difficult in: None Skin Integrity/Comment: intact Estimated Nutritional Goals BEE in Kcals: Adj wt of IBW Calories/Kcals/Kg 23-27 Kcals Calculated 5376-7499 Protein: Adj wt of IBW Protein g/k.8-1 Protein Calculated 63-79 Fluid: ml 1817-2133ml (1ml/kcal) Nutritional Problem 1. Problem Problem altered nutrition related labs Etiology hyperglycemia Signs/Symptoms: glucose 168 Malnutrition Alert Is there a minimum of two criteria No selected? Query Text:Check all the applicable criteria. A minimum of two criteria are recommended for diagnosis of either severe or non-severe malnutrition. Malnutrition Related to Morbid Obesity Malnutrition related to morbid obesity No Intervention/Recommendation Comments 1. [facility] diet as ordered. 2. Monitor PO intake, wt, labs and skin integrity 3. F/U as low risk in 7 days Expected Outcomes/Goals Expected Outcomes/Goals 1. PO intake to meet at least 75% of nutritional needs. 2. Wt stability, skin to remain intact, labs to approach WNL.
[2018-09-27] MEDS: Albuterol Nebulizer 2.5mg/3mL HHN SCH ×3 (00:40→14:19)
[2018-09-27] MEDS: Calcium Carb/Vit D 500 mg/200 U Tab PO SCH (09:23)
[2018-09-27] MEDS: Eucerin Cream 16 oz Jar TP SCH ×2 (09:23→16:59)
[2018-09-27] MEDS: Ferrous Sulfate 325 MG TAB PO SCH ×2 (09:23→16:43)
--- NOTE | 2018-09-27 09:53 | Internal Medicine Prog Note ---
Internal Medicine Subjective - Subjective Service Date: 09/27/18 Patient seen and examined:: with staff, chart reviewed Patient is:: awake, verbal, agitated, other (very irritable, behaviour issues- episodes of yelling and Screaming.) Patient Complaints of:: other ( Mood swings, behavioral issues.) Per staff patient has:: no adverse event, no episodes of fall Internal Medicine Objective - Results Recent Labs: Laboratory Last Values POC Glucose 203 MG/DL (70 - 105) H 09/19/18 23:29 - Physical Exam Vitals and I&O: Vital Signs Temp 97.6 F 09/27/18 06:40 Pulse 98 09/27/18 07:52 Resp 20 09/27/18 07:52 BP 104/53 09/27/18 06:40 Pulse Ox 97 09/27/18 07:52 Intake & Output 09/26/18 09/27/18 09/27/18 18:59 06:59 18:59 Intake Total 720 Balance 720 Intake: Oral 720 Other: # Voids 2 2 # Bowel Movements 1 0 Active Medications: Current Medications Acetaminophen (Tylenol) 650 mg PO Q6HR PRN PRN Reason: Pain or Fever >101 Stop: 11/18/18 22:53 Last Admin: 09/21/18 11:00 Dose: 650 mg Acetaminophen/Hydrocodone Bitart ([place] 5mg/325mg) 1 tab PO Q6H PRN PRN Reason: Pain (Moderate) Stop: 11/18/18 22:53 Albuterol Sulfate (Albuterol 2.5mg/3ml Neb Ud) 2.5 mg HHN Q6HRT [facility] Stop: 11/19/18 07:59 Last Admin: 09/27/18 07:52 Dose: Not Given Amlodipine Besylate (Norvasc) 10 mg PO DAILY [facility] Stop: 11/19/18 08:59 Last Admin: 09/26/18 09:22 Dose: Not Given Ascorbic Acid (Vitamin C) 500 mg PO DAILY [facility] Stop: 11/19/18 08:59 Last Admin: 09/26/18 09:21 Dose: 500 mg Aspirin (Ecotrin) 81 mg PO DAILY [facility] Stop: 11/19/18 08:59 Last Admin: 09/26/18 09:22 Dose: 81 mg Bisacodyl (Dulcolax 10 Mg Supp) 10 mg RC DAILY PRN PRN Reason: Constipation Stop: 11/18/18 22:53 Calcium/Vitamin D (Oscal W/Vitamin D) 1 tab PO DAILY [facility] Stop: 11/19/18 08:59 Last Admin: 09/26/18 09:21 Dose: 1 tab Carbidopa/Levodopa (Sinemet 25mg-100 Mg) 1 tab PO BID [facility] Stop: 11/19/18 08:59 Last Admin: 09/26/18 09:22 Dose: 1 tab Divalproex Sodium (Depakote Dr) 500 mg PO BID [facility]; Protocol Stop: 11/19/18 08:59 Last Admin: 09/26/18 09:21 Dose: 500 mg Docusate Sodium (Colace) 250 mg PO BID [facility] Stop: 11/19/18 08:59 Last Admin: 09/26/18 09:22 Dose: 250 mg Famotidine (Pepcid) 20 mg PO BID [facility] Stop: 11/19/18 08:59 Last Admin: 09/26/18 09:21 Dose: 20 mg Ferrous Sulfate (Iron) 325 mg PO BID [facility] Stop: 11/19/18 08:59 Last Admin: 09/26/18 09:21 Dose: 325 mg Folic Acid (Folate) 1 mg PO DAILY [facility] Stop: 11/19/18 08:59 Last Admin: 09/26/18 09:21 Dose: 1 mg Glipizide (Glucotrol) 2.5 mg PO QDAC [facility] Stop: 11/19/18 07:29 Last Admin: 09/27/18 06:53 Dose: 2.5 mg Hydralazine HCl (Apresoline) 50 mg PO Q8HR [facility] Stop: 11/19/18 04:59 Last Admin: 09/27/18 05:45 Dose: Not Given Latanoprost (Xalatan 0.005% Ophth Soln) 1 drop LEFT EYE HS [facility] Stop: 11/19/18 20:59 Last Admin: 09/26/18 20:56 Dose: 1 drop Lisinopril (Zestril) 10 mg PO BID [facility] Stop: 11/19/18 08:59 Last Admin: 09/26/18 09:23 Dose: Not Given Lorazepam (Ativan) 0.5 mg PO Q4HR PRN; Protocol PRN Reason: Anxiety Stop: 11/18/18 22:52 Last Admin: 09/27/18 00:21 Dose: 0.5 mg Magnesium Hydroxide (Milk Of Magnesia) 30 ml PO HS PRN PRN Reason: Constipation Stop: 11/18/18 22:53 Metformin HCl (Glucophage) 1,000 mg PO BIDWM [facility] Stop: 11/19/18 07:59 Last Admin: 09/26/18 09:22 Dose: Not Given Metoprolol Tartrate (Lopressor) 25 mg PO BID [facility] Stop: 11/19/18 08:59 Last Admin: 09/26/18 09:23 Dose: Not Given Multi-Ingredient Cream (Eucerin Cream) 1 appl TP BID [facility] Stop: 11/23/18 08:59 Last Admin: 09/26/18 09:22 Dose: Not Given Quetiapine Fumarate (Seroquel) 200 mg PO HS [facility]; Protocol Stop: 11/19/18 20:59 Last Admin: 09/26/18 20:56 Dose: 200 mg Quetiapine Fumarate (Seroquel) 25 mg PO DAILY [facility]; Protocol Stop: 11/24/18 08:59 Last Admin: 09/26/18 09:22 Dose: 25 mg Zolpidem Tartrate (Ambien) 5 mg PO HS PRN PRN Reason: Insomnia Stop: 11/18/18 22:52 Last Admin: 09/26/18 23:00 Dose: 5 mg Physical Exam: 72 y/o male patient remains aggressive and irritable towards staff, having episodes of yellig and screaming. Poor insight and Impulsive. General: alert, demented HEENT: NC/AT Neck: Supple, No JVD Lungs: CTAB Cardiovascular: RRR, Normal S1, Normal S2 Abdomen: soft, non-tender Extremities: clear Neurological: no change, disorganized Internal Medicine Assmt/Plan - Assessment Assessment: Psychosis. Agitated and Irritated. Weakness. Paranoid Schizophrenia. Parkinson's Disease. Diabetes. Copd. Hx of Falls. - Plan Plan: Continuation of care. Continue present meds as directed. Psych consult/followup. Monitor Diabetic diet. Supportive care. Accu-checks twice daily, continue DM meds as directed. Fall precauton. Physical therapy. Occupational therapy. Continue current treatment plan as ordered. Nutritional Asmnt/Malnutr-PDOC - Dietary Evaluation Malnutrition Findings (Please click <Entered> for more info): Nutritional Asmnt/Malnutrition Start: 09/20/18 13: 47 Text: Status: Complete Freq: Protocol: Document 09/20/18 13:47 LCDOUG (Rec: 09/20/18 14:02 [id number]) Nutritional Asmnt/Malnutrition Patient General Information Diagnosis psychosis Pertinent Medical Hx/Surgical Hx COPD, schizophrenia, DM Subjective Information Consult received for elevated blood sugar. Pt was transfered from med surg floor. Pt was seen in patio at time of visit . Per nurse pt is easily agitated. Not able to provide nutrition education d/t pt mental status. Current Diet Order/ Nutrition Support [facility] 60gm Pertinent Medications vit C, oscal w/vit D, colace, pepcid, iron, folate, glucophage, seroquel Pertinent Labs 09/15 glucose 168 Nutritional Hx/Data Height 1.75 m Height (Calculated Centimeters) 175.3 Current Weight (lbs) 97.522 kg Weight (Calculated Kilograms) 97.5 Weight (Calculated Grams) 73135.4 [place] Body Weight 160 Body Mass Index (BMI) 31.7 Weight Status Obese GI Symptoms GI Symptoms None Last BM not indicated Difficult in: None Skin Integrity/Comment: intact Estimated Nutritional Goals BEE in Kcals: Adj wt of IBW Calories/Kcals/Kg 23-27 Kcals Calculated 4694-4770 Protein: Adj wt of IBW Protein g/k.8-1 Protein Calculated 63-79 Fluid: ml 1817-2133ml (1ml/kcal) Nutritional Problem 1. Problem Problem altered nutrition related labs Etiology hyperglycemia Signs/Symptoms: glucose 168 Malnutrition Alert Is there a minimum of two criteria No selected? Query Text:Check all the applicable criteria. A minimum of two criteria are recommended for diagnosis of either severe or non-severe malnutrition. Malnutrition Related to Morbid Obesity Malnutrition related to morbid obesity No Intervention/Recommendation Comments 1. [facility] as ordered. 2. Monitor PO intake, wt, labs and skin integrity 3. F/U as low risk in 7 days Expected Outcomes/Goals Expected Outcomes/Goals 1. PO intake to meet at least 75% of nutritional needs. 2. Wt stability, skin to remain intact, labs to approach WNL.
--- NOTE | 2018-09-27 17:07 | Psychiatric Evaluation ---
DATE OF SERVICE: 09/26/[address] Peter. Case was discussed with staff of the patient, reviewed records. This is a well-known case, I admitted him covering for Dr. Sanchez and transferred him into [facility] [place]. The patient sometimes refusing medication, not following ____ sleeping better with intermittent episodes of yelling and screaming, unpredictable, impulsive, needing redirection. He is compliant with the medication with no side effects, no sedation, no nausea, no extrapyramidal symptoms. He is on Depakote 500 mg twice a day and Seroquel 200 mg at bedtime and 25 mg daily. We will continue to work with the patient in group therapy, milieu therapy, and adjust medications as needed. JOB# [id number]
[2018-09-27] MEDS ORDERED: Albuterol Nebulizer 2.5mg/3mL HHN PRN ×2 (18:51→18:54)
--- NOTE | 2018-09-27 20:39 | Progress Notes ---
DATE: 09/27/2018 Case was discussed with staff of the patient, reviewed records. The patient continues to be unpredictable, impulsive, easily agitated, easily irritable. He sleeps well. He eats well. He is impulsive, unpredictable, very poor insight, getting easily agitated. No side effects with the medication, no sedation, no nausea. No extrapyramidal symptoms. We will continue to work with the patient in group therapy, milieu therapy, adjust medication as needed. JOB# [id number]
[2018-09-27] MEDS ORDERED: Promethazine DM 6.25/15mg-5mL 5 ML SYR PO PRN (22:10)
[2018-09-28] MEDS: Calcium Carb/Vit D 500 mg/200 U Tab PO SCH (10:14)
[2018-09-28] MEDS: Ferrous Sulfate 325 MG TAB PO SCH ×2 (10:14→10:20)
[2018-09-28] MEDS: Eucerin Cream 16 oz Jar TP SCH ×2 (10:18→18:13)
--- NOTE | 2018-09-28 14:39 | Internal Medicine Prog Note ---
Internal Medicine Subjective - Subjective Service Date: 09/28/18 Patient is:: awake, verbal, agitated, other (very irritable, behaviour issues- episodes of yelling and Screaming.) Patient Complaints of:: other ( Mood swings, behavioral issues.) Per staff patient has:: no adverse event, no episodes of fall Internal Medicine Objective - Results Recent Labs: Laboratory Last Values POC Glucose 203 MG/DL (70 - 105) H 09/19/18 23:29 - Physical Exam Vitals and I&O: Vital Signs Temp 97.6 F 09/28/18 14:00 Pulse 97 09/28/18 14:00 Resp 18 09/28/18 14:00 BP 136/89 09/28/18 14:00 Pulse Ox 98 09/28/18 14:00 Intake & Output 09/27/18 09/28/18 09/28/18 18:59 06:59 18:59 Intake Total 1000 240 Balance 1000 240 Intake: Oral 1000 240 Other: # Voids 4 2 # Bowel Movements 0 0 Active Medications: Current Medications Acetaminophen (Tylenol) 650 mg PO Q6HR PRN PRN Reason: Pain or Fever >101 Stop: 11/18/18 22:53 Last Admin: 09/21/18 11:00 Dose: 650 mg Acetaminophen/Hydrocodone Bitart ([place] 5mg/325mg) 1 tab PO Q6H PRN PRN Reason: Pain (Moderate) Stop: 11/18/18 22:53 Albuterol Sulfate (Albuterol 2.5mg/3ml Neb Ud) 2.5 mg HHN Q6H PRN PRN Reason: Shortness of Breath Stop: 11/26/18 18:53 Amlodipine Besylate (Norvasc) 10 mg PO DAILY [facility] Stop: 11/19/18 08:59 Last Admin: 09/28/18 10:22 Dose: Not Given Ascorbic Acid (Vitamin C) 500 mg PO DAILY [facility] Stop: 11/19/18 08:59 Last Admin: 09/28/18 10:15 Dose: 500 mg Aspirin (Ecotrin) 81 mg PO DAILY [facility] Stop: 11/19/18 08:59 Last Admin: 09/28/18 10:14 Dose: 81 mg Bisacodyl (Dulcolax 10 Mg Supp) 10 mg RC DAILY PRN PRN Reason: Constipation Stop: 11/18/18 22:53 Calcium/Vitamin D (Oscal W/Vitamin D) 1 tab PO DAILY [facility] Stop: 11/19/18 08:59 Last Admin: 09/28/18 10:14 Dose: 1 tab Carbidopa/Levodopa (Sinemet 25mg-100 Mg) 1 tab PO BID [facility] Stop: 11/19/18 08:59 Last Admin: 09/28/18 10:10 Dose: 1 tab Divalproex Sodium (Depakote Dr) 500 mg PO BID [facility]; Protocol Stop: 11/19/18 08:59 Last Admin: 09/28/18 10:09 Dose: 500 mg Docusate Sodium (Colace) 250 mg PO BID [facility] Stop: 11/19/18 08:59 Last Admin: 09/28/18 10:24 Dose: 250 mg Famotidine (Pepcid) 20 mg PO BID [facility] Stop: 11/19/18 08:59 Last Admin: 09/28/18 10:23 Dose: 20 mg Ferrous Sulfate (Iron) 325 mg PO BID [facility] Stop: 11/19/18 08:59 Last Admin: 09/28/18 10:20 Dose: 325 mg Folic Acid (Folate) 1 mg PO DAILY [facility] Stop: 11/19/18 08:59 Last Admin: 09/28/18 10:15 Dose: 1 mg Glipizide (Glucotrol) 2.5 mg PO QDAC [facility] Stop: 11/19/18 07:29 Last Admin: 09/28/18 06:46 Dose: Not Given Hydralazine HCl (Apresoline) 50 mg PO Q8HR [facility] Stop: 11/19/18 04:59 Last Admin: 09/28/18 06:00 Dose: Not Given Latanoprost (Xalatan 0.005% Oph Soln) 1 drop LEFT EYE HS [facility] Stop: 11/19/18 20:59 Last Admin: 09/27/18 21:53 Dose: 1 drop Lisinopril (Zestril) 10 mg PO BID [facility] Stop: 11/19/18 08:59 Last Admin: 09/28/18 10:16 Dose: Not Given Lorazepam (Ativan) 0.5 mg PO Q4HR PRN; Protocol PRN Reason: Anxiety Stop: 11/18/18 22:52 Last Admin: 09/28/18 10:09 Dose: 0.5 mg Magnesium Hydroxide (Milk Of Magnesia) 30 ml PO HS PRN PRN Reason: Constipation Stop: 11/18/18 22:53 Metformin HCl (Glucophage) 1,000 mg PO BIDWM [facility] Stop: 11/19/18 07:59 Last Admin: 09/28/18 10:19 Dose: Not Given Metoprolol Tartrate (Lopressor) 25 mg PO BID [facility] Stop: 11/19/18 08:59 Last Admin: 09/28/18 10:18 Dose: Not Given Multi-Ingredient Cream (Eucerin Cream) 1 appl TP BID [facility] Stop: 11/23/18 08:59 Last Admin: 09/28/18 10:18 Dose: 1 appl Promethazine HCl/Dextromethorphan (Phenergan Dm 6.25/15mg-5 Ml) 10 ml PO TID PRN PRN Reason: Cough Stop: 09/30/18 22:09 Quetiapine Fumarate (Seroquel) 200 mg PO HS [facility]; Protocol Stop: 11/19/18 20:59 Last Admin: 09/27/18 21:53 Dose: Not Given Quetiapine Fumarate (Seroquel) 25 mg PO DAILY [facility]; Protocol Stop: 11/24/18 08:59 Last Admin: 09/28/18 10:10 Dose: 25 mg Zolpidem Tartrate (Ambien) 5 mg PO HS PRN PRN Reason: Insomnia Stop: 11/18/18 22:52 Last Admin: 09/26/18 23:00 Dose: 5 mg General: alert, demented HEENT: NC/AT Neck: Supple, No JVD Lungs: CTAB Cardiovascular: RRR, Normal S1, Normal S2 Abdomen: soft, non-tender Extremities: clear Neurological: no change, disorganized Internal Medicine Assmt/Plan - Assessment Assessment: Psychosis. Agitated and Irritated. Weakness. Paranoid Schizophrenia. Parkinson's Disease. Diabetes. Copd. Hx of Falls. - Plan Plan: Continuation of care. Continue present meds as directed. Psych consult/followup. Monitor Diabetic diet. Supportive care. Accu-checks twice daily, continue DM meds as directed. Fall precauton. Physical therapy. Occupational therapy. Continue current treatment plan as ordered. Nutritional Asmnt/Malnutr-PDOC - Dietary Evaluation Malnutrition Findings (Please click <Entered> for more info): Nutritional Asmnt/Malnutrition Start: 09/20/18 13: 47 Text: Status: Complete Freq: Protocol: Document 09/20/18 13:47 LCDOUG (Rec: 09/20/18 14:02 JL [email or web address]) Nutritional Asmnt/Malnutrition Patient General Information Diagnosis psychosis Pertinent Medical Hx/Surgical Hx COPD, schizophrenia, DM Subjective Information Consult received for elevated blood sugar. Pt was transfered from med surg floor. Pt was seen in patio at time of visit . Per nurse pt is easily agitated. Not able to provide nutrition education d/t pt mental status. Current Diet Order/ Nutrition [facility] Pertinent Medications vit C, oscal w/vit D, colace, pepcid, iron, folate, glucophage, seroquel Pertinent Labs 09/15 glucose 168 Nutritional Hx/Data Height 5 ft 9 in Height (Calculated Centimeters) 175.3 Current Weight (lbs) 215 lb Weight (Calculated Kilograms) 97.5 Weight (Calculated Grams) 57468.4 [place] Body Weight 160 Body Mass Index (BMI) 31.7 Weight Status Obese GI Symptoms GI Symptoms None Last BM not indicated Difficult in: None Skin Integrity/Comment: intact Estimated Nutritional Goals BEE in Kcals: Adj wt of IBW Calories/Kcals/Kg 23-27 Kcals Calculated 2214-7551 Protein: Adj wt of IBW Protein g/k.8-1 Protein Calculated 63-79 Fluid: ml 1817-2133ml (1ml/kcal) Nutritional Problem 1. Problem Problem altered nutrition related labs Etiology hyperglycemia Signs/Symptoms: glucose 168 Malnutrition Alert Is there a minimum of two criteria No selected? Query Text:Check all the applicable criteria. A minimum of two criteria are recommended for diagnosis of either severe or non-severe malnutrition. Malnutrition Related to Morbid Obesity Malnutrition related to morbid obesity No Intervention/Recommendation Comments 1. Continue with [facility] diet as ordered. 2. Monitor PO intake, wt, labs and skin integrity 3. F/U as low risk in 7 days Expected Outcomes/Goals Expected Outcomes/Goals 1. PO intake to meet at least 75% of nutritional needs. 2. Wt stability, skin to remain intact, labs to approach WNL.
--- NOTE | 2018-09-29 00:23 | Progress Notes ---
DATE: SUBJECTIVE: The patient was seen and evaluated. The patient's chart reviewed. This is Dr. Bray covering for Dr. Peter. IDENTIFYING DATA: A 72-year-old male brought in here after the patient was placed on a hold for aggressive, agitated behavior, yelling, and throwing objects. He had been recently started on Seroquel and Depakote. Current medication reconciliation; amlodipine, vitamin C, Sinemet, Depakote 500 mg p.o. b.i.d., lisinopril, Ativan as needed, Lopressor, quetiapine 200 mg p.o. at bedtime and 25 mg daily with Ambien as needed. Today on [id number] evaluation, the patient continues to present disorganized and when attempting to discuss in linear conversation, he becomes very irritable and agitated and dismisses the interview. MENTAL STATUS EXAMINATION: Irritable, agitated, disorganized thought process, difficult to understand. ASSESSMENT AND PLAN: The patient with a history of disorganized thought process and psychosis resulting in aggressive behavior, unable to formulate a safe plan. We will continue with primary psychiatric treatment plan and goals. Medication continues to be tolerated with the recent increase. JOB# [id number]
[2018-09-29] MEDS: Eucerin Cream 16 oz Jar TP SCH ×2 (09:00→17:29)
[2018-09-29] MEDS: Ferrous Sulfate 325 MG TAB PO SCH ×3 (09:00→17:32)
[2018-09-29] MEDS: Calcium Carb/Vit D 500 mg/200 U Tab PO SCH (09:17)
--- NOTE | 2018-09-29 12:08 | Internal Medicine Prog Note ---
Internal Medicine Subjective - Subjective Patient is:: awake, verbal, agitated, other (very irritable, confused) Patient Complaints of:: other ( Mood swings, behavioral issues.) Per staff patient has:: no adverse event, no episodes of fall Internal Medicine Objective - Results Recent Labs: Laboratory Last Values POC Glucose 203 MG/DL (70 - 105) H 09/19/18 23:29 - Physical Exam Vitals and I&O: Vital Signs Temp 98 F 09/29/18 06:08 Pulse 88 09/29/18 09:15 Resp 18 09/29/18 08:08 BP 132/68 09/29/18 09:15 Pulse Ox 98 09/29/18 07:01 Intake & Output 09/28/18 09/29/18 09/29/18 18:59 06:59 18:59 Intake Total 1500 360 Output Total 2 Balance 1500 358 Intake: Oral 1500 360 Output: Urine/Stool Mix 2 Other: # Voids 1 # Bowel Movements 1 1 Active Medications: Current Medications Acetaminophen (Tylenol) 650 mg PO Q6HR PRN PRN Reason: Pain or Fever >101 Stop: 11/18/18 22:53 Last Admin: 09/21/18 11:00 Dose: 650 mg Acetaminophen/Hydrocodone Bitart ([place] 5mg/325mg) 1 tab PO Q6H PRN PRN Reason: Pain (Moderate) Stop: 11/18/18 22:53 Albuterol Sulfate (Albuterol 2.5mg/3ml Neb Ud) 2.5 mg HHN Q6H PRN PRN Reason: Shortness of Breath Stop: 11/26/18 18:53 Amlodipine Besylate (Norvasc) 10 mg PO DAILY [facility] Stop: 11/19/18 08:59 Last Admin: 09/28/18 10:22 Dose: Not Given Ascorbic Acid (Vitamin C) 500 mg PO DAILY [facility] Stop: 11/19/18 08:59 Last Admin: 09/29/18 09:16 Dose: 500 mg Aspirin (Ecotrin) 81 mg PO DAILY [facility] Stop: 11/19/18 08:59 Last Admin: 09/29/18 09:17 Dose: 81 mg Bisacodyl (Dulcolax 10 Mg Supp) 10 mg RC DAILY PRN PRN Reason: Constipation Stop: 11/18/18 22:53 Calcium/Vitamin D (Oscal W/Vitamin D) 1 tab PO DAILY [facility] Stop: 11/19/18 08:59 Last Admin: 09/29/18 09:17 Dose: 1 tab Carbidopa/Levodopa (Sinemet 25mg-100 Mg) 1 tab PO BID [facility] Stop: 11/19/18 08:59 Last Admin: 09/29/18 09:12 Dose: 1 tab Divalproex Sodium (Depakote Dr) 500 mg PO BID [facility]; Protocol Stop: 11/19/18 08:59 Last Admin: 09/29/18 09:13 Dose: 500 mg Docusate Sodium (Colace) 250 mg PO BID [facility] Stop: 11/19/18 08:59 Last Admin: 09/29/18 09:16 Dose: 250 mg Famotidine (Pepcid) 20 mg PO BID [facility] Stop: 11/19/18 08:59 Last Admin: 09/29/18 09:18 Dose: 20 mg Ferrous Sulfate (Iron) 325 mg PO BID [facility] Stop: 11/19/18 08:59 Last Admin: 09/29/18 09:18 Dose: 325 mg Folic Acid (Folate) 1 mg PO DAILY [facility] Stop: 11/19/18 08:59 Last Admin: 09/29/18 09:17 Dose: 1 mg Glipizide (Glucotrol) 2.5 mg PO QDAC [facility] Stop: 11/19/18 07:29 Last Admin: 09/29/18 06:45 Dose: Not Given Hydralazine HCl (Apresoline) 50 mg PO Q8HR [facility] Stop: 11/19/18 04:59 Last Admin: 09/28/18 20:44 Dose: 50 mg Latanoprost (Xalatan 0.005% Ophth Soln) 1 drop LEFT EYE HS [facility] Stop: 11/19/18 20:59 Last Admin: 09/28/18 20:41 Dose: 1 drop Lisinopril (Zestril) 10 mg PO BID [facility] Stop: 11/19/18 08:59 Last Admin: 09/28/18 18:14 Dose: Not Given Lorazepam (Ativan) 0.5 mg PO Q4HR PRN; Protocol PRN Reason: Anxiety Stop: 11/18/18 22:52 Last Admin: 09/29/18 09:14 Dose: 0.5 mg Magnesium Hydroxide (Milk Of Magnesia) 30 ml PO HS PRN PRN Reason: Constipation Stop: 11/18/18 22:53 Last Admin: 09/29/18 09:21 Dose: 30 ml Metformin HCl (Glucophage) 1,000 mg PO BIDWM [facility] Stop: 11/19/18 07:59 Last Admin: 09/28/18 17:46 Dose: 1,000 mg Metoprolol Tartrate (Lopressor) 25 mg PO BID [facility] Stop: 11/19/18 08:59 Last Admin: 09/29/18 09:15 Dose: 25 mg Multi-Ingredient Cream (Eucerin Cream) 1 appl TP BID [facility] Stop: 11/23/18 08:59 Last Admin: 09/28/18 18:13 Dose: Not Given Promethazine HCl/Dextromethorphan (Phenergan Dm 6.25/15mg-5 Ml) 10 ml PO TID PRN PRN Reason: Cough Stop: 09/30/18 22:09 Quetiapine Fumarate (Seroquel) 200 mg PO HS [facility]; Protocol Stop: 11/19/18 20:59 Last Admin: 09/28/18 20:42 Dose: 200 mg Quetiapine Fumarate (Seroquel) 25 mg PO DAILY [facility]; Protocol Stop: 11/24/18 08:59 Last Admin: 09/29/18 09:13 Dose: 25 mg Zolpidem Tartrate (Ambien) 5 mg PO HS PRN PRN Reason: Insomnia Stop: 11/18/18 22:52 Last Admin: 09/28/18 21:07 Dose: 5 mg Physical Exam: 72 y/o male patient remains aggressive and irritable towards staff, having episodes of yellig and screaming. Poor insight and Impulsive. General: alert, demented HEENT: NC/AT Neck: Supple, No JVD Lungs: CTAB Cardiovascular: RRR, Normal S1, Normal S2 Abdomen: soft, non-tender Extremities: clear Neurological: no change, disorganized Internal Medicine Assmt/Plan - Assessment Assessment: Psychosis. Agitated and Irritated. Weakness. Paranoid Schizophrenia. Parkinson's Disease. Diabetes. Copd. Hx of Falls. - Plan Plan: Continuation of care. Continue present meds as directed. Psych consult/followup. Monitor Diabetic diet. Supportive care. Accu-checks twice daily, continue DM meds as directed. Fall precauton. Physical therapy. Occupational therapy. Continue current treatment plan as ordered. Nutritional Asmnt/Malnutr-PDOC - Dietary Evaluation Malnutrition Findings (Please click <Entered> for more info): Nutritional Asmnt/Malnutrition Start: 09/20/18 13: 47 Text: Status: Complete Freq: Protocol: Document 09/20/18 13:47 LCASHLEYG (Rec: 09/20/18 14:02 [email or web address] [email or web address]) Nutritional Asmnt/Malnutrition Patient General Information Diagnosis psychosis Pertinent Medical Hx/Surgical Hx COPD, schizophrenia, DM Subjective Information Consult received for elevated blood sugar. Pt was transfered from med surg floor. [facility] . Per nurse pt is easily agitated. Not able to provide nutrition education d/t pt mental status. Current Diet Order/ [facility] Pertinent Medications vit C, oscal w/vit D, colace, pepcid, iron, folate, glucophage, seroquel Pertinent Labs 09/15 glucose 168 Nutritional Hx/Data Height 1.75 m Height (Calculated Centimeters) 175.3 Current Weight (lbs) 97.522 kg Weight (Calculated Kilograms) 97.5 Weight (Calculated Grams) 18196.4 [place] Body Weight 160 Body Mass Index (BMI) 31.7 Weight Status Obese GI Symptoms GI Symptoms None Last BM not indicated Difficult in: None Skin Integrity/Comment: intact Estimated Nutritional Goals BEE in Kcals: Adj wt of IBW Calories/Kcals/Kg 23-27 Kcals Calculated 7445-5104 Protein: Adj wt of IBW Protein g/k.8-1 Protein Calculated 63-79 Fluid: ml 1817-2133ml (1ml/kcal) Nutritional Problem 1. Problem Problem altered nutrition related labs Etiology hyperglycemia Signs/Symptoms: glucose 168 Malnutrition Alert Is there a minimum of two criteria No selected? Query Text:Check all the applicable criteria. A minimum of two criteria are recommended for diagnosis of either severe or non-severe malnutrition. Malnutrition Related to Morbid Obesity Malnutrition related to morbid obesity No Intervention/Recommendation Comments 1. Continue with [facility] diet as ordered. 2. Monitor PO intake, wt, labs and skin integrity 3. F/U as low risk in 7 days Expected Outcomes/Goals Expected Outcomes/Goals 1. PO intake to meet at least 75% of nutritional needs. 2. Wt stability, skin to remain intact, labs to approach WNL.
--- NOTE | 2018-09-30 06:20 | Progress Notes ---
DATE: 09/29/2018 SUBJECTIVE: The patient was seen and evaluated. The patient's chart reviewed. This is Dr. Bray covering for Dr. Peter. Today on [id number] evaluation, the patient was extremely irritable and agitated, suspicious on [id number] evaluation and refusing interview. MENTAL STATUS EXAMINATION: Irritable, agitated, suspicious, paranoid. ASSESSMENT AND PLAN: Affective disorder and comorbid dementia. We will continue with the management of his psychotropic medication to continue to target the patient's suspicious and aggressive behavior. [facility]# [id number]
[2018-09-30] MEDS: Calcium Carb/Vit D 500 mg/200 U Tab PO SCH (08:58)
[2018-09-30] MEDS: Ferrous Sulfate 325 MG TAB PO SCH ×2 (08:59→17:36)
[2018-09-30] MEDS: Eucerin Cream 16 oz Jar TP SCH ×2 (09:26→17:28)
--- NOTE | 2018-09-30 09:54 | Internal Medicine Prog Note ---
Internal Medicine Subjective - Subjective Service Date: 09/30/18 Patient seen and examined:: chart reviewed Patient is:: awake, verbal, in bed, other (very irritable, confused) Patient Complaints of:: other ( Mood swings, behavioral issues.) Per staff patient has:: no adverse event, no episodes of fall Internal Medicine Objective - Results Recent Labs: Laboratory Last Values POC Glucose 203 MG/DL (70 - 105) H 09/19/18 23:29 - Physical Exam Vitals and I&O: Vital Signs Temp 98 F 09/29/18 20:19 Pulse 100 09/30/18 09:08 Resp 16 09/30/18 07:03 BP 118/62 09/30/18 09:08 Pulse Ox 100 09/30/18 07:03 Intake & Output 09/29/18 09/30/18 09/30/18 18:59 06:59 18:59 Intake Total 1200 420 Balance 1200 420 Intake: Oral 1200 420 Other: # Voids 4 2 # Bowel Movements 1 0 Active Medications: Current Medications Acetaminophen (Tylenol) 650 mg PO Q6HR PRN PRN Reason: Pain or Fever >101 Stop: 11/18/18 22:53 Last Admin: 09/21/18 11:00 Dose: 650 mg Acetaminophen/Hydrocodone Bitart ([place] 5mg/325mg) 1 tab PO Q6H PRN PRN Reason: Pain (Moderate) Stop: 11/18/18 22:53 Albuterol Sulfate (Albuterol 2.5mg/3ml Neb Ud) 2.5 mg HHN Q6H PRN PRN Reason: Shortness of Breath Stop: 11/26/18 18:53 Amlodipine Besylate (Norvasc) 10 mg PO DAILY [facility] Stop: 11/19/18 08:59 Last Admin: 09/30/18 09:06 Dose: 10 mg Ascorbic Acid (Vitamin C) 500 mg PO DAILY [facility] Stop: 11/19/18 08:59 Last Admin: 09/30/18 08:58 Dose: 500 mg Aspirin (Ecotrin) 81 mg PO DAILY [facility] Stop: 11/19/18 08:59 Last Admin: 09/30/18 08:58 Dose: 81 mg Bisacodyl (Dulcolax 10 Mg Supp) 10 mg RC DAILY PRN PRN Reason: Constipation Stop: 11/18/18 22:53 Calcium/Vitamin D (Oscal W/Vitamin D) 1 tab PO DAILY [facility] Stop: 11/19/18 08:59 Last Admin: 09/30/18 08:58 Dose: 1 tab Carbidopa/Levodopa (Sinemet 25mg-100 Mg) 1 tab PO BID [facility] Stop: 11/19/18 08:59 Last Admin: 09/30/18 08:58 Dose: Not Given Divalproex Sodium (Depakote Dr) 500 mg PO BID [facility]; Protocol Stop: 11/19/18 08:59 Last Admin: 09/30/18 08:59 Dose: Not Given Docusate Sodium (Colace) 250 mg PO BID [facility] Stop: 11/19/18 08:59 Last Admin: 09/30/18 08:59 Dose: Not Given Famotidine (Pepcid) 20 mg PO BID [facility] Stop: 11/19/18 08:59 Last Admin: 09/30/18 08:59 Dose: Not Given Ferrous Sulfate (Iron) 325 mg PO BID [facility] Stop: 11/19/18 08:59 Last Admin: 09/30/18 08:59 Dose: 325 mg Folic Acid (Folate) 1 mg PO DAILY [facility] Stop: 11/19/18 08:59 Last Admin: 09/30/18 08:59 Dose: 1 mg Glipizide (Glucotrol) 2.5 mg PO QDAC [facility] Stop: 11/19/18 07:29 Last Admin: 09/30/18 06:34 Dose: 2.5 mg Hydralazine HCl (Apresoline) 50 mg PO Q8HR [facility] Stop: 11/19/18 04:59 Last Admin: 09/30/18 05:13 Dose: Not Given Latanoprost (Xalatan 0.005% Ophth Soln) 1 drop LEFT EYE HS [facility] Stop: 11/19/18 20:59 Last Admin: 09/29/18 20:13 Dose: 1 drop Lisinopril (Zestril) 10 mg PO BID [facility] Stop: 11/19/18 08:59 Last Admin: 09/30/18 09:08 Dose: Not Given Lorazepam (Ativan) 0.5 mg PO Q4HR PRN; Protocol PRN Reason: Anxiety Stop: 11/18/18 22:52 Last Admin: 09/29/18 17:32 Dose: 0.5 mg Magnesium Hydroxide (Milk Of Magnesia) 30 ml PO HS PRN PRN Reason: Constipation Stop: 11/18/18 22:53 Last Admin: 09/29/18 09:21 Dose: 30 ml Metformin HCl (Glucophage) 1,000 mg PO BIDWM [facility] Stop: 11/19/18 07:59 Last Admin: 09/30/18 08:57 Dose: Not Given Metoprolol Tartrate (Lopressor) 25 mg PO BID [facility] Stop: 11/19/18 08:59 Last Admin: 09/30/18 09:07 Dose: Not Given Multi-Ingredient Cream (Eucerin Cream) 1 appl TP BID [facility] Stop: 11/23/18 08:59 Last Admin: 09/30/18 09:26 Dose: 1 appl Promethazine HCl/Dextromethorphan (Phenergan Dm 6.25/15mg-5 Ml) 10 ml PO TID PRN PRN Reason: Cough Stop: 09/30/18 22:09 Quetiapine Fumarate (Seroquel) 200 mg PO HS [facility]; Protocol Stop: 11/19/18 20:59 Last Admin: 09/29/18 20:14 Dose: 200 mg Quetiapine Fumarate (Seroquel) 25 mg PO DAILY [facility]; Protocol Stop: 11/24/18 08:59 Last Admin: 09/30/18 08:59 Dose: 25 mg Zolpidem Tartrate (Ambien) 5 mg PO HS PRN PRN Reason: Insomnia Stop: 11/18/18 22:52 Last Admin: 09/28/18 21:07 Dose: 5 mg Physical Exam: 72 y/o male patient remains aggressive and irritable towards staff, having episodes of yellig and screaming. Poor insight and Impulsive. General: alert, demented HEENT: NC/AT Neck: Supple, No JVD Lungs: CTAB Cardiovascular: RRR, Normal S1, Normal S2 Abdomen: soft, non-tender Extremities: clear Neurological: no change, disorganized Internal Medicine Assmt/Plan - Assessment Assessment: Psychosis. Agitated and Irritated. Weakness. Paranoid Schizophrenia. Parkinson's Disease. Diabetes. Copd. Hx of Falls. - Plan Plan: Continuation of care. Continue present meds as directed. Psych consult/followup. Monitor Diabetic diet. Supportive care. Accu-checks twice daily, continue DM meds as directed. Fall precauton. Physical therapy. Occupational therapy. Continue current treatment plan as ordered. Nutritional Asmnt/Malnutr-PDOC - Dietary Evaluation Malnutrition Findings (Please click <Entered> for more info): Nutritional Asmnt/Malnutrition Start: 09/20/18 13: 47 Text: Status: Complete Freq: Protocol: Document 09/20/18 13:47 LCASHLEYG (Rec: 09/20/18 14:02 ASHLEYG [email or web address]) Nutritional Asmnt/Malnutrition Patient General Information Diagnosis psychosis Pertinent Medical Hx/Surgical Hx COPD, schizophrenia, DM Subjective Information Consult received for elevated blood sugar. Pt was transfered from med surg floor. Pt was seen in patio at time of visit . Per nurse pt is easily agitated. Not able to provide nutrition education d/t pt mental status. Current Diet Order/ [facility] Pertinent Medications vit C, oscal w/vit D, colace, pepcid, iron, folate, glucophage, seroquel Pertinent Labs 09/15 glucose 168 Nutritional Hx/Data Height 1.75 m Height (Calculated Centimeters) 175.3 Current Weight (lbs) 97.522 kg Weight (Calculated Kilograms) 97.5 Weight (Calculated Grams) 34818.4 [place] Body Weight 160 Body Mass Index (BMI) 31.7 Weight Status Obese GI Symptoms GI Symptoms None Last BM not indicated Difficult in: None Skin Integrity/Comment: intact Estimated Nutritional Goals BEE in Kcals: Adj wt of IBW Calories/Kcals/Kg 23-27 Kcals Calculated 0671-0937 Protein: Adj wt of IBW Protein g/k.8-1 Protein Calculated 63-79 Fluid: ml 1817-2133ml (1ml/kcal) Nutritional Problem 1. Problem Problem altered nutrition related labs Etiology hyperglycemia Signs/Symptoms: glucose 168 Malnutrition Alert Is there a minimum of two criteria No selected? Query Text:Check all the applicable criteria. A minimum of two criteria are recommended for diagnosis of either severe or non-severe malnutrition. Malnutrition Related to Morbid Obesity Malnutrition related to morbid obesity No Intervention/Recommendation Comments 1. Continue with [facility] diet as ordered. 2. Monitor PO intake, wt, labs and skin integrity 3. F/U as low risk in 7 days Expected Outcomes/Goals Expected Outcomes/Goals 1. PO intake to meet at least 75% of nutritional needs. 2. Wt stability, skin to remain intact, labs to approach WNL.
--- NOTE | 2018-10-01 02:42 | Progress Notes ---
DATE: 09/30/2018 SUBJECTIVE: Calm, generally more cooperative. We will confirm placement with social media marketing analyst, eating well, sleeping well. No agitation, no escalation of behavior. Seems to be getting along well with staff and peers. The patient had been really aggressive previously. The patient going to [facility]. Medications were noted. ASSESSMENT: The patient is calm, likely approaching his baseline. We will prepare for discharge tomorrow. [facility]# [id number]
[2018-10-01] MEDS: Ferrous Sulfate 325 MG TAB PO SCH ×2 (08:29→16:09)
[2018-10-01] MEDS: Calcium Carb/Vit D 500 mg/200 U Tab PO SCH (08:35)
[2018-10-01] MEDS: Eucerin Cream 16 oz Jar TP SCH ×2 (09:20→16:08)
--- NOTE | 2018-10-01 17:08 | Internal Medicine Prog Note ---
Internal Medicine Subjective - Subjective Service Date: 10/01/18 Patient is:: awake, verbal, in bed, other (very irritable, confused) Patient Complaints of:: other ( Mood swings, behavioral issues.) Per staff patient has:: no adverse event, no episodes of fall Internal Medicine Objective - Results Recent Labs: Laboratory Last Values POC Glucose 203 MG/DL (70 - 105) H 09/19/18 23:29 - Physical Exam Vitals and I&O: Vital Signs Temp 97.6 F 10/01/18 16:21 Pulse 121 10/01/18 16:21 Resp 20 10/01/18 16:21 BP 124/70 10/01/18 16:21 Pulse Ox 98 10/01/18 16:21 Intake & Output 09/30/18 10/01/18 10/01/18 18:59 06:59 18:59 Intake Total 360 Balance 360 Intake: Oral 360 Other: # Voids 3 2 # Bowel Movements 0 1 Active Medications: Current Medications Acetaminophen (Tylenol) 650 mg PO Q6HR PRN PRN Reason: Pain or Fever >101 Stop: 11/18/18 22:53 Last Admin: 09/21/18 11:00 Dose: 650 mg Acetaminophen/Hydrocodone Bitart ([place] 5mg/325mg) 1 tab PO Q6H PRN PRN Reason: Pain (Moderate) Stop: 11/18/18 22:53 Albuterol Sulfate (Albuterol 2.5mg/3ml Neb Ud) 2.5 mg HHN Q6H PRN PRN Reason: Shortness of Breath Stop: 11/26/18 18:53 Amlodipine Besylate (Norvasc) 10 mg PO DAILY [facility] Stop: 11/19/18 08:59 Last Admin: 10/01/18 08:33 Dose: Not Given Ascorbic Acid (Vitamin C) 500 mg PO DAILY [facility] Stop: 11/19/18 08:59 Last Admin: 10/01/18 08:34 Dose: 500 mg Aspirin (Ecotrin) 81 mg PO DAILY [facility] Stop: 11/19/18 08:59 Last Admin: 10/01/18 08:29 Dose: 81 mg Bisacodyl (Dulcolax 10 Mg Supp) 10 mg RC DAILY PRN PRN Reason: Constipation Stop: 11/18/18 22:53 Calcium/Vitamin D (Oscal W/Vitamin D) 1 tab PO DAILY [facility] Stop: 11/19/18 08:59 Last Admin: 10/01/18 08:35 Dose: 1 tab Carbidopa/Levodopa (Sinemet 25mg-100 Mg) 1 tab PO BID [facility] Stop: 11/19/18 08:59 Last Admin: 10/01/18 16:10 Dose: 1 tab Divalproex Sodium (Depakote Dr) 500 mg PO BID [facility]; Protocol Stop: 11/19/18 08:59 Last Admin: 10/01/18 16:08 Dose: 500 mg Docusate Sodium (Colace) 250 mg PO BID [facility] Stop: 11/19/18 08:59 Last Admin: 10/01/18 16:09 Dose: 250 mg Famotidine (Pepcid) 20 mg PO BID [facility] Stop: 11/19/18 08:59 Last Admin: 10/01/18 16:09 Dose: 20 mg Ferrous Sulfate (Iron) 325 mg PO BID [facility] Stop: 11/19/18 08:59 Last Admin: 10/01/18 16:09 Dose: 325 mg Folic Acid (Folate) 1 mg PO DAILY [facility] Stop: 11/19/18 08:59 Last Admin: 10/01/18 08:31 Dose: 1 mg Glipizide (Glucotrol) 2.5 mg PO QDAC [facility] Stop: 11/19/18 07:29 Last Admin: 10/01/18 06:37 Dose: 2.5 mg Hydralazine HCl (Apresoline) 50 mg PO Q8HR [facility] Stop: 11/19/18 04:59 Last Admin: 10/01/18 16:11 Dose: Not Given Latanoprost (Xalatan 0.005% Oph Soln) 1 drop LEFT EYE HS [facility] Stop: 11/19/18 20:59 Last Admin: 09/30/18 20:52 Dose: 1 drop Lisinopril (Zestril) 10 mg PO BID [facility] Stop: 11/19/18 08:59 Last Admin: 10/01/18 16:10 Dose: 10 mg Lorazepam (Ativan) 0.5 mg PO Q4HR PRN; Protocol PRN Reason: Anxiety Stop: 11/18/18 22:52 Last Admin: 09/30/18 20:22 Dose: 0.5 mg Magnesium Hydroxide (Milk Of Magnesia) 30 ml PO HS PRN PRN Reason: Constipation Stop: 11/18/18 22:53 Last Admin: 09/29/18 09:21 Dose: 30 ml Metformin HCl (Glucophage) 1,000 mg PO BIDWM [facility] Stop: 11/19/18 07:59 Last Admin: 10/01/18 08:32 Dose: 1,000 mg Metoprolol Tartrate (Lopressor) 25 mg PO BID [facility] Stop: 11/19/18 08:59 Last Admin: 10/01/18 16:09 Dose: 25 mg Multi-Ingredient Cream (Eucerin Cream) 1 appl TP BID [facility] Stop: 11/23/18 08:59 Last Admin: 10/01/18 16:08 Dose: 1 appl Quetiapine Fumarate (Seroquel) 200 mg PO HS [facility]; Protocol Stop: 11/19/18 20:59 Last Admin: 09/30/18 20:21 Dose: 200 mg Quetiapine Fumarate (Seroquel) 25 mg PO DAILY [facility]; Protocol Stop: 11/24/18 08:59 Last Admin: 10/01/18 08:35 Dose: 25 mg Zolpidem Tartrate (Ambien) 5 mg PO HS PRN PRN Reason: Insomnia Stop: 11/18/18 22:52 Last Admin: 09/30/18 20:22 Dose: 5 mg General: alert, demented HEENT: NC/AT Neck: Supple, No JVD Lungs: CTAB Cardiovascular: RRR, Normal S1, Normal S2 Abdomen: soft, non-tender Extremities: clear Neurological: no change, disorganized Internal Medicine Assmt/Plan - Assessment Assessment: Psychosis. Agitated and Irritated. Weakness. Paranoid Schizophrenia. Parkinson's Disease. Diabetes. Copd. Hx of Falls. - Plan Plan: Continuation of care. Continue present meds as directed. Psych consult/followup. Monitor Diabetic diet. Supportive care. Accu-checks twice daily, continue DM meds as directed. Fall precauton. Physical therapy. Occupational therapy. Continue current treatment plan as ordered. Nutritional Asmnt/Malnutr-PDOC - Dietary Evaluation Malnutrition Findings (Please click <Entered> for more info): Nutritional Asmnt/Malnutrition Start: 09/20/18 13: 47 Text: Status: Complete Freq: Protocol: Document 09/20/18 13:47 JL (Rec: 09/20/18 14:02 JL [email or web address]) Nutritional Asmnt/Malnutrition Patient General Information Diagnosis psychosis Pertinent Medical Hx/Surgical Hx COPD, schizophrenia, DM Subjective Information Consult received for elevated blood sugar. Pt was transfered from med surg floor. Pt was seen in patio at time of visit . Per nurse pt is easily agitated. Not able to provide nutrition education d/t pt mental status. Current Diet Order/ Nutrition Support [facility] 60gm Pertinent Medications vit C, oscal w/vit D, colace, pepcid, iron, folate, glucophage, seroquel Pertinent Labs 09/15 glucose 168 Nutritional Hx/Data Height 5 ft 9 in Height (Calculated Centimeters) 175.3 Current Weight (lbs) 215 lb Weight (Calculated Kilograms) 97.5 Weight (Calculated Grams) 63194.4 [place] Body Weight 160 Body Mass Index (BMI) 31.7 Weight Status Obese GI Symptoms GI Symptoms None Last BM not indicated Difficult in: None Skin Integrity/Comment: intact Estimated Nutritional Goals BEE in Kcals: Adj wt of IBW Calories/Kcals/Kg 23-27 Kcals Calculated 8875-0594 Protein: Adj wt of IBW Protein g/k.8-1 Protein Calculated 63-79 Fluid: ml 1817-2133ml (1ml/kcal) Nutritional Problem 1. Problem Problem altered nutrition related labs Etiology hyperglycemia Signs/Symptoms: glucose 168 Malnutrition Alert Is there a minimum of two criteria No selected? Query Text:Check all the applicable criteria. A minimum of two criteria are recommended for diagnosis of either severe or non-severe malnutrition. Malnutrition Related to Morbid Obesity Malnutrition related to morbid obesity No Intervention/Recommendation Comments 1. Continue with [facility] 60gm diet as ordered. 2. Monitor PO intake, wt, labs and skin integrity 3. F/U as low risk in 7 days Expected Outcomes/Goals Expected Outcomes/Goals 1. PO intake to meet at least 75% of nutritional needs. 2. Wt stability, skin to remain intact, labs to approach WNL.
--- NOTE | 2018-10-02 02:14 | Discharge Summary ---
DATE OF DISCHARGE: 10/01/2018 JUSTIFICATION FOR HOSPITALIZATION: Aggressive behaviors and agitation. HISTORY OF PRESENT ILLNESS: A 72-year-old male aggressive, agitation, yelling, screaming, throwing objects, very impulsive, unpredictable, requiring Geropsych placement. PAST PSYCHIATRIC HISTORY: History of hospitalizations in the past. SOCIAL HISTORY: Noted. Single, never , no kids. PROVISIONAL DIAGNOSIS: Schizoaffective disorder versus schizophrenia. Medical, please see full H and P. HOSPITAL COURSE: After initial assessment, the patient was admitted to the Geropsych Unit and started on medications. Medications were adjusted and titrated. Over the course of treatment, mood improved, affect improved, generally calmer, more cooperative, no longer aggressive. Toward the latter end of treatment, he was calm, more cooperative, no combative behaviors, sleeping well, eating well and tolerant of treatment. CONDITION UPON DISCHARGE: Improved, better ADLs, good eye contact, mood "okay," affect constricted, thought processes he is more engaged, no SI, no HI, no psychotic symptoms better insight and better judgment DISCHARGE DIAGNOSIS: Schizophrenia. Medical, please see full H and P including mood, unspecified. PROGNOSIS: If the patient follows up with outpatient mental health services and remains compliant with treatment, prognosis will improve, otherwise guarded. [facility]# [id number]
[2018-10-02] MEDS: Eucerin Cream 16 oz Jar TP SCH ×2 (08:40→18:00)
[2018-10-02] MEDS: Calcium Carb/Vit D 500 mg/200 U Tab PO SCH (08:47)
[2018-10-02] MEDS: Ferrous Sulfate 325 MG TAB PO SCH ×2 (08:48→18:00)
--- NOTE | 2018-10-02 09:07 | Internal Medicine Prog Note ---
Internal Medicine Subjective - Subjective Service Date: 10/02/18 Patient seen and examined:: chart reviewed Patient is:: awake, verbal, in bed, other (alert and oriented ) Patient Complaints of:: other ( Mood swings, behavioral issues.) Per staff patient has:: no adverse event, no episodes of fall Internal Medicine Objective - Results Recent Labs: Laboratory Last Values POC Glucose 203 MG/DL (70 - 105) H 09/19/18 23:29 - Physical Exam Vitals and I&O: Vital Signs Temp 97.9 F 10/02/18 06:12 Pulse 102 10/02/18 07:01 Resp 18 10/02/18 07:04 BP 116/60 10/02/18 06:12 Pulse Ox 97 10/02/18 07:01 Intake & Output 10/01/18 10/02/18 10/02/18 18:59 06:59 18:59 Intake Total 180 Balance 180 Intake: Oral 180 Other: # Voids 1 # Bowel Movements 0 Active Medications: Current Medications Acetaminophen (Tylenol) 650 mg PO Q6HR PRN PRN Reason: Pain or Fever >101 Stop: 11/18/18 22:53 Last Admin: 09/21/18 11:00 Dose: 650 mg Acetaminophen/Hydrocodone Bitart ([place] 5mg/325mg) 1 tab PO Q6H PRN PRN Reason: Pain (Moderate) Stop: 11/18/18 22:53 Albuterol Sulfate (Albuterol 2.5mg/3ml Neb Ud) 2.5 mg HHN Q6H PRN PRN Reason: Shortness of Breath Stop: 11/26/18 18:53 Amlodipine Besylate (Norvasc) 10 mg PO DAILY [facility] Stop: 11/19/18 08:59 Last Admin: 10/01/18 08:33 Dose: Not Given Ascorbic Acid (Vitamin C) 500 mg PO DAILY VAN Stop: 11/19/18 08:59 Last Admin: 10/01/18 08:34 Dose: 500 mg Aspirin (Ecotrin) 81 mg PO DAILY VAN Stop: 11/19/18 08:59 Last Admin: 10/01/18 08:29 Dose: 81 mg Bisacodyl (Dulcolax 10 Mg Supp) 10 mg RC DAILY PRN PRN Reason: Constipation Stop: 11/18/18 22:53 Calcium/Vitamin D (Oscal W/Vitamin D) 1 tab PO DAILY [facility] Stop: 11/19/18 08:59 Last Admin: 10/01/18 08:35 Dose: 1 tab Carbidopa/Levodopa (Sinemet 25mg-100 Mg) 1 tab PO BID VAN Stop: 11/19/18 08:59 Last Admin: 10/01/18 16:10 Dose: 1 tab Divalproex Sodium (Depakote Dr) 500 mg PO BID [facility]; Protocol Stop: 11/19/18 08:59 Last Admin: 10/01/18 16:08 Dose: 500 mg Docusate Sodium (Colace) 250 mg PO BID [facility]AN Stop: 11/19/18 08:59 Last Admin: 10/01/18 16:09 Dose: 250 mg Famotidine (Pepcid) 20 mg PO BID [facility] Stop: 11/19/18 08:59 Last Admin: 10/01/18 16:09 Dose: 20 mg Ferrous Sulfate (Iron) 325 mg PO BID VAN Stop: 11/19/18 08:59 Last Admin: 10/01/18 16:09 Dose: 325 mg Folic Acid (Folate) 1 mg PO DAILY [facility]AN Stop: 11/19/18 08:59 Last Admin: 10/01/18 08:31 Dose: 1 mg Glipizide (Glucotrol) 2.5 mg PO QDAC [facility] Stop: 11/19/18 07:29 Last Admin: 10/02/18 06:36 Dose: 2.5 mg Hydralazine HCl (Apresoline) 50 mg PO Q8HR VAN Stop: 11/19/18 04:59 Last Admin: 10/02/18 05:00 Dose: Not Given Latanoprost (Xalatan 0.005% Oph Soln) 1 drop LEFT EYE HS [facility] Stop: 11/19/18 20:59 Last Admin: 10/01/18 20:27 Dose: 1 drop Lisinopril (Zestril) 10 mg PO BID [facility] Stop: 11/19/18 08:59 Last Admin: 10/01/18 16:10 Dose: 10 mg Lorazepam (Ativan) 0.5 mg PO Q4HR PRN; Protocol PRN Reason: Anxiety Stop: 11/18/18 22:52 Last Admin: 09/30/18 20:22 Dose: 0.5 mg Magnesium Hydroxide (Milk Of Magnesia) 30 ml PO HS PRN PRN Reason: Constipation Stop: 11/18/18 22:53 Last Admin: 09/29/18 09:21 Dose: 30 ml Metformin HCl (Glucophage) 1,000 mg PO BIDWM VAN Stop: 11/19/18 07:59 Last Admin: 10/01/18 17:57 Dose: 1,000 mg Metoprolol Tartrate (Lopressor) 25 mg PO BID [facility]AN Stop: 11/19/18 08:59 Last Admin: 10/01/18 16:09 Dose: 25 mg Multi-Ingredient Cream (Eucerin Cream) 1 appl TP BID [facility] Stop: 11/23/18 08:59 Last Admin: 10/01/18 16:08 Dose: 1 appl Quetiapine Fumarate (Seroquel) 200 mg PO HS [facility]; Protocol Stop: 11/19/18 20:59 Last Admin: 10/01/18 20:28 Dose: 200 mg Quetiapine Fumarate (Seroquel) 25 mg PO DAILY [facility]; Protocol Stop: 11/24/18 08:59 Last Admin: 10/01/18 08:35 Dose: 25 mg Zolpidem Tartrate (Ambien) 5 mg PO HS PRN PRN Reason: Insomnia Stop: 11/18/18 22:52 Last Admin: 09/30/18 20:22 Dose: 5 mg Physical Exam: 72 y/o male patient remains aggressive and irritable towards staff, having episodes of yellig and screaming. Poor insight and Impulsive. General: alert, demented HEENT: NC/AT Neck: Supple, No JVD Lungs: CTAB Cardiovascular: RRR, Normal S1, Normal S2 Abdomen: soft, non-tender Extremities: clear Neurological: no change, disorganized Internal Medicine Assmt/Plan - Assessment Assessment: Psychosis. Agitated and Irritated. Weakness. Paranoid Schizophrenia. Parkinson's Disease. Diabetes. Copd. Hx of Falls. - Plan Plan: Continuation of care. Continue present meds as directed. Psych consult/followup. Monitor Diabetic diet. Supportive care. Accu-checks twice daily, continue DM meds as directed. Fall precauton. Physical therapy. Occupational therapy. Continue current treatment plan as ordered. Nutritional Asmnt/Malnutr-PDOC - Dietary Evaluation Malnutrition Findings (Please click <Entered> for more info): Nutritional Asmnt/Malnutrition Start: 09/20/18 13: 47 Text: Status: Complete Freq: Protocol: Document 09/20/18 13:47 LCASHLEYG (Rec: 09/20/18 14:02 LCASHLEYG [email or web address]) Nutritional Asmnt/Malnutrition Patient General Information Diagnosis psychosis Pertinent Medical Hx/Surgical Hx COPD, schizophrenia, DM Subjective Information Consult received for elevated blood sugar. Pt was transfered from [facility] surg floor. Pt was seen in patio at time of visit . Per nurse pt is easily agitated. Not able to provide nutrition education d/t pt mental status. Current Diet Order/ Nutrition Support CCHO 60gm Pertinent Medications vit C, oscal w/vit D, colace, pepcid, iron, folate, glucophage, seroquel Pertinent Labs 09/15 glucose 168 Nutritional Hx/Data Height 1.75 m Height (Calculated Centimeters) 175.3 Current Weight (lbs) 97.522 kg Weight (Calculated Kilograms) 97.5 Weight (Calculated Grams) 66275.4 [place] Body Weight 160 Body Mass Index (BMI) 31.7 Weight Status Obese GI Symptoms GI Symptoms None Last BM not indicated Difficult in: None Skin Integrity/Comment: intact Estimated Nutritional Goals BEE in Kcals: Adj wt of IBW Calories/Kcals/Kg 23-27 Kcals Calculated 1859-0239 Protein: Adj wt of IBW Protein g/k.8-1 Protein Calculated 63-79 Fluid: ml 1817-2133ml (1ml/kcal) Nutritional Problem 1. Problem Problem altered nutrition related labs Etiology hyperglycemia Signs/Symptoms: glucose 168 Malnutrition Alert Is there a minimum of two criteria No selected? Query Text:Check all the applicable criteria. A minimum of two criteria are recommended for diagnosis of either severe or non-severe malnutrition. Malnutrition Related to Morbid Obesity Malnutrition related to morbid obesity No Intervention/Recommendation Comments [facility]. [facility] as ordered. 2. Monitor PO intake, wt, labs and skin integrity 3. F/U as low risk in 7 days Expected Outcomes/Goals Expected Outcomes/Goals 1. PO intake to meet at least 75% of nutritional needs. 2. Wt stability, skin to remain intact, labs to approach WNL.
--- NOTE | 2018-10-03 03:54 | Progress Notes ---
DATE: 10/02/2018 SUBJECTIVE: The patient is currently in the hospital. We are having difficulty finding placement for him. Concerns for grave disability. Concerns for his ability to care for his basic needs. He does escalate quickly, gets mad, but is fairly redirectable. No agitation, no escalation of behaviors. Fair sleep, fair appetite. Medications were noted. No side effects. ASSESSMENT AND PLAN: Trying to find a safe discharge plan. Ongoing concerns about his ability to care for his basic needs. JOB# [id number]
[2018-10-03] MEDS: Eucerin Cream 16 oz Jar TP SCH ×2 (08:33→17:19)
[2018-10-03] MEDS: Calcium Carb/Vit D 500 mg/200 U Tab PO SCH (08:33)
[2018-10-03] MEDS: Ferrous Sulfate 325 MG TAB PO SCH ×2 (08:36→17:20)
--- NOTE | 2018-10-03 18:33 | Internal Medicine Prog Note ---
Internal Medicine Subjective - Subjective Service Date: 10/03/18 Patient is:: awake, verbal, in bed, other (alert and oriented ) Patient Complaints of:: other ( Mood swings, behavioral issues.) Per staff patient has:: no adverse event, no episodes of fall Internal Medicine Objective - Results Recent Labs: Laboratory Last Values POC Glucose 203 MG/DL (70 - 105) H 09/19/18 23:29 - Physical Exam Vitals and I&O: Vital Signs Temp 98 F 10/03/18 15:00 Pulse 96 10/03/18 15:00 Resp 20 10/03/18 15:00 BP 116/46 10/03/18 15:00 Pulse Ox 100 10/03/18 15:00 Intake & Output 10/02/18 10/03/18 10/03/18 18:59 06:59 18:59 Intake Total 120 720 Output Total 1 Balance 120 719 Intake: Oral 120 480 Other 240 Output: Stool 1 Other: # Voids 3 4 # Bowel Movements 1 Active Medications: Current Medications Acetaminophen (Tylenol) 650 mg PO Q6HR PRN PRN Reason: Pain or Fever >101 Stop: 11/18/18 22:53 Last Admin: 10/03/18 09:37 Dose: 650 mg Acetaminophen/Hydrocodone Bitart ([place] 5mg/325mg) 1 tab PO Q6H PRN PRN Reason: Pain (Moderate) Stop: 11/18/18 22:53 Albuterol Sulfate (Albuterol 2.5mg/3ml Neb Ud) 2.5 mg HHN Q6H PRN PRN Reason: Shortness of Breath Stop: 11/26/18 18:53 Amlodipine Besylate (Norvasc) 10 mg PO DAILY [facility] Stop: 11/19/18 08:59 Last Admin: 10/03/18 08:33 Dose: Not Given Ascorbic Acid (Vitamin C) 500 mg PO DAILY [facility] Stop: 11/19/18 08:59 Last Admin: 10/03/18 08:32 Dose: 500 mg Aspirin (Ecotrin) 81 mg PO DAILY [facility] Stop: 11/19/18 08:59 Last Admin: 10/03/18 08:32 Dose: 81 mg Bisacodyl (Dulcolax 10 Mg Supp) 10 mg RC DAILY PRN PRN Reason: Constipation Stop: 11/18/18 22:53 Calcium/Vitamin D (Oscal W/Vitamin D) 1 tab PO DAILY [facility] Stop: 11/19/18 08:59 Last Admin: 10/03/18 08:33 Dose: 1 tab Carbidopa/Levodopa (Sinemet 25mg-100 Mg) 1 tab PO BID [facility] Stop: 11/19/18 08:59 Last Admin: 10/03/18 17:19 Dose: 1 tab Divalproex Sodium (Depakote Dr) 500 mg PO BID [facility]; Protocol Stop: 11/19/18 08:59 Last Admin: 10/03/18 17:19 Dose: 500 mg Docusate Sodium (Colace) 250 mg PO BID [facility] Stop: 11/19/18 08:59 Last Admin: 10/03/18 17:20 Dose: 250 mg Famotidine (Pepcid) 20 mg PO BID [facility] Stop: 11/19/18 08:59 Last Admin: 10/03/18 17:20 Dose: 20 mg Ferrous Sulfate (Iron) 325 mg PO BID [facility] Stop: 11/19/18 08:59 Last Admin: 10/03/18 17:20 Dose: 325 mg Folic Acid (Folate) 1 mg PO DAILY [facility] Stop: 11/19/18 08:59 Last Admin: 10/03/18 08:32 Dose: 1 mg Glipizide (Glucotrol) 2.5 mg PO QDAC [facility] Stop: 11/19/18 07:29 Last Admin: 10/03/18 06:30 Dose: 2.5 mg Hydralazine HCl (Apresoline) 50 mg PO Q8HR [facility]AN Stop: 11/19/18 04:59 Last Admin: 10/03/18 13:37 Dose: Not Given Latanoprost (Xalatan 0.005% Ophth Soln) 1 drop LEFT EYE HS [facility] Stop: 11/19/18 20:59 Last Admin: 10/02/18 20:13 Dose: 1 drop Lisinopril (Zestril) 10 mg PO BID [facility] Stop: 11/19/18 08:59 Last Admin: 10/03/18 17:20 Dose: Not Given Lorazepam (Ativan) 0.5 mg PO Q4HR PRN; Protocol PRN Reason: Anxiety Stop: 11/18/18 22:52 Last Admin: 09/30/18 20:22 Dose: 0.5 mg Magnesium Hydroxide (Milk Of Magnesia) 30 ml PO HS PRN PRN Reason: Constipation Stop: 11/18/18 22:53 Last Admin: 09/29/18 09:21 Dose: 30 ml Metformin HCl (Glucophage) 1,000 mg PO BIDWM [facility] Stop: 11/19/18 07:59 Last Admin: 10/03/18 17:20 Dose: 1,000 mg Metoprolol Tartrate (Lopressor) 25 mg PO BID [facility] Stop: 11/19/18 08:59 Last Admin: 10/03/18 17:20 Dose: Not Given Multi-Ingredient Cream (Eucerin Cream) 1 appl TP BID [facility] Stop: 11/23/18 08:59 Last Admin: 10/03/18 17:19 Dose: 1 appl Quetiapine Fumarate (Seroquel) 200 mg PO HS [facility]; Protocol Stop: 11/19/18 20:59 Last Admin: 10/02/18 20:14 Dose: 200 mg Quetiapine Fumarate (Seroquel) 25 mg PO DAILY [facility]; Protocol Stop: 11/24/18 08:59 Last Admin: 10/03/18 08:32 Dose: 25 mg Zolpidem Tartrate (Ambien) 5 mg PO HS PRN PRN Reason: Insomnia Stop: 11/18/18 22:52 Last Admin: 09/30/18 20:22 Dose: 5 mg General: alert, demented HEENT: NC/AT Neck: Supple, No JVD Lungs: CTAB Cardiovascular: RRR, Normal S1, Normal S2 Abdomen: soft, non-tender Extremities: clear Neurological: no change, disorganized Internal Medicine Assmt/Plan - Assessment Assessment: Psychosis. Agitated and Irritated. Weakness. Paranoid Schizophrenia. Parkinson's Disease. Diabetes. Copd. Hx of Falls. - Plan Plan: Continuation of care. Continue present meds as directed. Psych consult/followup. Monitor Diabetic diet. Supportive care. Accu-checks twice daily, continue DM meds as directed. Fall precauton. Physical therapy. Occupational therapy. Continue current treatment plan as ordered. Nutritional Asmnt/Malnutr-PDOC - Dietary Evaluation Malnutrition Findings (Please click <Entered> for more info): Nutritional Asmnt/Malnutrition Start: 09/20/18 13: 47 Text: Status: Complete Freq: Protocol: Document 09/20/18 13:47 LCHENG (Rec: 09/20/18 14:02 KRISTENG [email or web address]) Nutritional Asmnt/Malnutrition Patient General Information Diagnosis psychosis Pertinent Medical Hx/Surgical Hx COPD, schizophrenia, DM Subjective Information Consult received for elevated blood sugar. Pt was transfered from med surg floor. Pt was seen in patio at time of visit . Per nurse pt is easily agitated. Not able to provide nutrition education d/t pt mental status. Current Diet Order/ Nutrition Support CCHO 60gm Pertinent Medications vit C, oscal w/vit D, colace, pepcid, iron, folate, glucophage, seroquel Pertinent Labs 09/15 glucose 168 Nutritional Hx/Data Height 5 ft 9 in Height (Calculated Centimeters) 175.3 Current Weight (lbs) 215 lb Weight (Calculated Kilograms) 97.5 Weight (Calculated Grams) 03621.4 [place] Body Weight 160 Body Mass Index (BMI) 31.7 Weight Status Obese GI Symptoms GI Symptoms None Last BM not indicated Difficult in: None Skin Integrity/Comment: intact Estimated Nutritional Goals BEE in Kcals: Adj wt of IBW Calories/Kcals/Kg 23-27 Kcals Calculated 9017-9424 Protein: Adj wt of IBW Protein g/k.8-1 Protein Calculated 63-79 Fluid: ml 1817-2133ml (1ml/kcal) Nutritional Problem 1. Problem Problem altered nutrition related labs Etiology hyperglycemia Signs/Symptoms: glucose 168 Malnutrition Alert Is there a minimum of two criteria No selected? Query Text:Check all the applicable criteria. A minimum of two criteria are recommended for diagnosis of either severe or non-severe malnutrition. Malnutrition Related to Morbid Obesity Malnutrition related to morbid obesity No Intervention/Recommendation Comments 1. Continue with [facility] 60gm diet as ordered. 2. Monitor PO intake, wt, labs and skin integrity 3. F/U as low risk in 7 days Expected Outcomes/Goals Expected Outcomes/Goals 1. PO intake to meet at least 75% of nutritional needs. 2. Wt stability, skin to remain intact, labs to approach WNL.
--- NOTE | 2018-10-04 03:39 | Progress Notes ---
DATE: 10/03/2018 The patient is currently in the hospital. Relieving today. Placement confirmed. Calm, cooperative, engaged, no SI, no HI. No psychosis. JOB# [id number]
== END 2018-10-03 20:50 | DRG 885 ==
LOC: GERO 22:06
PROVIDERS: ADMIT Psychiatry & Neurology Psychiatry; ATTEND Psychiatry & Neurology Psychiatry
DX: F25.9 Schizoaffective disorder, unspecified (principal); F29 Unspecified psychosis not due to a substance or known physiological condition; G20 Parkinson's disease; E11.9 Type 2 diabetes mellitus without complications; J44.9 Chronic obstructive pulmonary disease, unspecified; R29.6 Repeated falls; Z91.81 History of falling; Z79.84 Long term (current) use of oral hypoglycemic drugs
CPT/HCPCS: 82948-90; 83036-90; 94760; J7613; Z7610

== ENCOUNTER 2019-10-08 13:59 | Inpatient (IN) | payer MEDICARE, MEDICAID ==
[2019-10-08 16:31] VITALS: BP 133/70
[2019-10-08] MEDS ORDERED: Magnesium Hydroxide (MOM) 30 mL UDC PO PRN (16:47)
[2019-10-08] MEDS ORDERED: Maalox 30 mL Cup PO PRN (16:47)
[2019-10-08] MEDS ORDERED: Acetaminophen 500 MG TAB PO PRN (16:47)
[2019-10-08] MEDS ORDERED: Hydrocodone/APAP 5mg/325mg Tab PO PRN (17:50)
--- NOTE | 2019-10-08 17:58 | History and Physical ---
History of Present Illness - HPI Chief Complaint: transfer from [facility] who is medically cleared to [facility] due to agitation HPI: This is a 73-year old male who is a group home resident of [address] who is medically cleared by [facility] due to [facility] and aggressive behavior. Vital Signs: Last Vital Signs Temp Pulse Resp BP 133/70 10/08/19 16:31 Pulse Ox Past Medical History Other History: PARKINSON'S COPD DM2 ANEMIA SCHIZOPHRENIA GLAUCOMA Family Medical History - Family Member Mother History Unknown: Yes Ethnicity: Unknown Living Status: Unknown Hx Family Cancer: No Hx Family Coronary Artery Disease: No Hx Family Congestive Heart Failure: No Hx Family Hypertension: No Hx Family Stroke: No Hx Family Diabetes: No Hx Family Seizures: No Hx Family Dementia: No Hx Family AIDS: No Hx Family HIV: No Hx Family COPD: No Hx Family Hepatitis: No Hx Family Psychiatric Problems: No Hx Family Tuberculosis: No Social History Smoke: No Alcohol: None Drugs: None Lives: [facility] - Medications Home Medications: Home Medication Medication Instructions Recorded Type Acetaminophen [Tylenol] 650 mg PO Q6HR PRN 09/15/18 History Amlodipine Besylate 10 mg PO DAILY 09/15/18 History Ascorbic Acid [Vitamin C] 500 mg PO DAILY 09/15/18 History Aspirin EC [Ecotrin] 81 mg PO DAILY 09/15/18 History Bisacodyl [Dulcolax 10 Mg Supp] 10 mg RC DAILY PRN 09/15/18 History Calcium Carbonate/Vitamin D3 1 each PO DAILY 09/15/18 History [Calcium 500-Vit D3 200 [place]] Carbidopa/Levodopa [Carbidopa-Levo 1 each PO BID 09/15/18 History 25-100 mg Odt] Divalproex Sodium [Depakote] 500 mg PO BID 09/15/18 History Docusate Sodium [Dok] 250 mg PO BID 09/15/18 History Famotidine [Pepcid] 20 mg PO BID 09/15/18 History Ferrous Sulfate 325 mg PO BID 09/15/18 History Folic Acid [Folate*] 1 mg PO DAILY 09/15/18 History Glipizide [Glipizide ER] 2.5 mg PO QDAC 09/15/18 History Hydralazine [Apresoline*] 50 mg PO Q8H 09/15/18 History Hydrocodone/Acetaminophen [[place] 1 each PO Q6H PRN 09/15/18 History 5-325 Tablet] Latanoprost/Pf [Latanoprost 0.005% 1 drop LEFT EYE HS 09/15/18 History Eye Drop] Lisinopril 10 mg PO BID 09/15/18 History Magnesium Hydroxide [Milk of 30 ml PO HS PRN 09/15/18 History Magnesia] Metformin HCl 1,000 mg PO BID 09/15/18 History Metoprolol Tartrate 25 mg PO BID 09/15/18 History QUEtiapine Fumarate [SEROquel] 200 mg PO HS 09/15/18 History Salmeterol Xinafoate [Serevent 1 puff IH DAILY 09/15/18 History Diskus] Acetaminophen [Tylenol] 650 mg PO Q6HR PRN tab 10/01/18 Rx Albuterol Nebulizer 2.5mg/3mL 2.5 mg HHN Q6H PRN each 10/01/18 Rx [Albuterol Neb UD*] Ascorbic Acid [Vitamin C] 500 mg PO DAILY tab 10/01/18 Rx Aspirin EC [Ecotrin] 81 mg PO DAILY ect 10/01/18 Rx Bisacodyl [Dulcolax 10 Mg Supp] 10 mg RC DAILY PRN sup 10/01/18 Rx Calcium Carb/Vit D 500mg/200U 1 tab PO DAILY tab 10/01/18 Rx [Oscal w/Vitamin D] Carbidopa/Levodopa 25/100 mg 1 tab PO BID tab 10/01/18 Rx [Sinemet 25mg-100 mg] Cream, Multi-Ingredient [Eucerin 1 appl TP BID appl 10/01/18 Rx Cream] Divalproex [Depakote DR] 500 mg PO BID tcp 10/01/18 Rx Docusate Sodium [Colace] 250 mg PO BID sgl 10/01/18 Rx Famotidine [Pepcid] 20 mg PO BID tab 10/01/18 Rx Ferrous Sulfate [Iron] 325 mg PO BID tab 10/01/18 Rx Folic Acid [Folate*] 1 mg PO DAILY tab 10/01/18 Rx Glipizide [Glucotrol] 2.5 mg PO QDAC tab 10/01/18 Rx Hydralazine [Apresoline*] 50 mg PO Q8HR tab 10/01/18 Rx Hydrocodone/APAP 5mg/325mg [[place] 1 tab PO Q6H PRN tab 10/01/18 Rx 5mg/325mg] Latanoprost 0.005% Ophth Soln 1 drop LEFT EYE HS drops 10/01/18 Rx [Xalatan 0.005% Ophth Soln] Lisinopril [Zestril*] 10 mg PO BID tab 10/01/18 Rx Lorazepam [Ativan] 0.5 mg PO Q4HR PRN tab 10/01/18 Rx Magnesium Hydroxide [Milk of 30 ml PO HS PRN udc 10/01/18 Rx Magnesia] Metoprolol Tartrate [Lopressor] 25 mg PO BID tab 10/01/18 Rx QUEtiapine Fumarate [SEROquel] 25 mg PO DAILY tab 10/01/18 Rx QUEtiapine Fumarate [SEROquel] 200 mg PO HS tab 10/01/18 Rx Zolpidem Tartrate [Ambien] 5 mg PO HS PRN tab 10/01/18 Rx amLODIPine Besylate [Norvasc*] 10 mg PO DAILY tab 10/01/18 Rx metFORMIN [Glucophage] 1,000 mg PO BIDWM tab 10/01/18 Rx - Allergies Allergies/Adverse Reactions: Allergies Allergy/AdvReac Type Severity Reaction Status Date / Time No Known Allergies Allergy Verified 09/15/18 23:08 Review of Systems - Review of Systems Constitutional: Report: No Significant Eyes: Report: No Significant ENT: Report: No Significant Respiratory: Report: No Significant Cardiovascular: Report: No Significant Neurological: Report: Weakness Physical Exam - Physical Exam HEENT: Report: Ears Nose Throat within normal limits Neck: Report: Within normal limits Cardiovascular Systems: Report: +s1/s2 noted, Regular, Rate and Rhythm Respiratory: Report: Breath Sounds are within normal limits Abdomen: Report: Non-tender to palpation Skin: Report: Warm, Dry - Lab Results All Lab Results last 24 hours: Laboratory Results - last 24 hr 10/08/19 17:12 POC Glucose 247 H - Assessment Assessment: psychosis PARKINSON'S COPD DM2 ANEMIA SCHIZOPHRENIA GLAUCOMA - Plan Plan: continue home medications monitor bp closely accucheck with sliding scale fall precautions
[2019-10-08] MEDS: INSULIN LISPRO SLIDING SCALE 100 UNITS/ML UNIT SUBQ SCH (20:30)
[2019-10-09] MEDS: INSULIN LISPRO SLIDING SCALE 100 UNITS/ML UNIT SUBQ SCH ×4 (07:00→21:33)
[2019-10-09] MEDS ORDERED: GLIPIZIDE 2.5 MG PO SCH (07:30)
[2019-10-09] MEDS: Multivitamin Tab PO SCH (09:25)
[2019-10-09] MEDS: Calcium Carb/Vit D 500 mg/200 U Tab PO SCH (09:25)
[2019-10-09] MEDS: Ferrous Sulfate 325 MG TAB PO SCH ×2 (09:26→17:11)
--- NOTE | 2019-10-09 14:22 | Psychiatric Evaluation ---
DATE OF SERVICE: 10/09/2019 JUSTIFICATION FOR HOSPITALIZATION: Agitation. HISTORY OF PRESENT ILLNESS: A 73-year-old male referred from custodial facility, agitated, aggressive, unruly, arrived via gurney with two staff members. He was aggressive, yelling, cursing. Staff could not take care of him, poorly oriented, not wanted to take medications, not wanting to give up his belongings, poor compliance. PAST PSYCHIATRIC HISTORY: Schizophrenia. Admissions in the past. FAMILY HISTORY: Noncontributory. SOCIAL HISTORY: Born in [place], raised in [place], not , no kids. 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 MEDICAL HISTORY: Noted. MENTAL STATUS EXAMINATION: Stated age, disheveled, unkempt, disorganized, nonsensical, slurred speech, hard to understand, unclear thought content. Poor historian. Poor insight, poor judgment, poor impulse control. PROVISIONAL DIAGNOSIS: Schizophrenia. MEDICAL: Please see full H and P. ESTIMATED LENGTH OF STAY: 7-10 days. ASSESSMENT: The patient requiring hospitalization, agitated, aggressive, cannot be cared for at a lower level of care. PLAN: We will continue inpatient monitoring. We will adjust medications. TREATMENT PLAN: Includes group as well as milieu therapy. CONDITIONS FOR DISCHARGE: Improved mood, improved affect, better control of agitation. [facility]# [id number]
--- NOTE | 2019-10-09 17:14 | Internal Medicine Prog Note ---
Internal Medicine Subjective - Subjective Service Date: 10/09/19 Patient seen and examined:: with staff Patient is:: awake, verbal, interactive Per staff patient has:: tolerating meds Internal Medicine Objective - Results Recent Labs: Laboratory Last Values POC Glucose 185 MG/DL (70 - 105) H 10/09/19 16:56 - Physical Exam Vitals and I&O: Vital Signs Temp 98.9 F 10/08/19 20:00 Pulse 82 10/09/19 15:00 Resp 19 10/08/19 20:00 BP 142/53 10/09/19 15:00 Pulse Ox 98 10/08/19 20:00 Intake & Output 10/08/19 10/09/19 10/09/19 18:59 06:59 18:59 Weight (lbs) 221 lb Other: Weight Source Bedscale Active Medications: Current Medications Acetaminophen (Tylenol) 650 mg PO Q4H PRN PRN Reason: Pain (Mild 1-3) Stop: 12/07/19 16:46 Acetaminophen (Tylenol Extra Strength) 1,000 mg PO Q6H PRN PRN Reason: Pain (Moderate 4-6) Stop: 12/07/19 16:46 Hydrocodone Bitart/Acetaminophen ([place] 5mg/325mg) 1 tab PO Q6H PRN PRN Reason: Pain (Moderate 4-6) Stop: 12/07/19 17:49 Al Hydrox/Mg Hydrox/Simethicone (Maalox) 30 ml PO Q4HR PRN PRN Reason: GI DISTRESS Stop: 12/07/19 16:46 Amlodipine Besylate (Norvasc) 10 mg PO DAILY [facility] Stop: 12/08/19 08:59 Last Admin: 10/09/19 09:32 Dose: 10 mg Ascorbic Acid (Vitamin C) 500 mg PO DAILY [facility] Stop: 12/08/19 08:59 Last Admin: 10/09/19 09:26 Dose: 500 mg Aspirin (Ecotrin) 81 mg PO DAILY [facility] Stop: 12/08/19 08:59 Last Admin: 10/09/19 09:25 Dose: 81 mg Bisacodyl (Dulcolax 10 Mg Supp) 10 mg RC DAILY PRN PRN Reason: Constipation Stop: 12/07/19 17:49 Calcium/Vitamin D (Oscal W/Vitamin D) 1 tab PO DAILY [facility] Stop: 12/08/19 08:59 Last Admin: 10/09/19 09:25 Dose: 1 tab Docusate Sodium (Colace) 250 mg PO BID [facility] Stop: 12/08/19 08:59 Last Admin: 10/09/19 09:25 Dose: Not Given Famotidine (Pepcid) 20 mg PO BID [facility] Stop: 12/08/19 08:59 Last Admin: 10/09/19 09:25 Dose: 20 mg Ferrous Sulfate (Iron) 325 mg PO BID [facility] Stop: 12/08/19 08:59 Last Admin: 10/09/19 09:26 Dose: 325 mg Folic Acid (Folate) 1 mg PO DAILY [facility] Stop: 12/08/19 08:59 Last Admin: 10/09/19 09:25 Dose: 1 mg Hydralazine HCl (Apresoline) 50 mg PO Q8H [facility] Stop: 12/07/19 21:59 Last Admin: 10/09/19 15:00 Dose: 50 mg Ibuprofen (Motrin) 400 mg PO Q4H PRN PRN Reason: Pain (Severe 7-10) Stop: 12/07/19 16:46 Last Admin: 10/09/19 15:37 Dose: 400 mg Insulin Human Lispro (Humalog Insulin Sliding Scale) 0 units SUBQ ACHS [facility]; Protocol Stop: 12/07/19 20:59 Last Admin: 10/09/19 11:51 Dose: 4 units Latanoprost (Xalatan 0.005% Ophth Soln) 1 drop LEFT EYE HS [facility] Stop: 12/07/19 20:59 Last Admin: 10/08/19 21:00 Dose: Not Given Lisinopril (Zestril) 10 mg PO BID [facility] Stop: 12/08/19 08:59 Last Admin: 10/09/19 09:33 Dose: Not Given Lorazepam (Ativan) 0.5 mg PO Q4HR PRN; Protocol PRN Reason: Anxiety Stop: 11/07/19 16:46 Magnesium Hydroxide (Milk Of Magnesia) 30 ml PO HS PRN PRN Reason: Constipation Metoprolol Tartrate (Lopressor) 25 mg PO BID [facility] Stop: 12/08/19 08:59 Last Admin: 10/09/19 09:26 Dose: 25 mg Multivitamins/Vitamin C (Theragran) 1 tab PO DAILY [facility] Stop: 12/08/19 08:59 Last Admin: 10/09/19 09:25 Dose: 1 tab Quetiapine Fumarate (Seroquel) 50 mg PO HS [facility]; Protocol Stop: 12/08/19 20:59 Zolpidem Tartrate (Ambien) 5 mg PO HS PRN PRN Reason: Insomnia Stop: 12/07/19 16:46 General: alert HEENT: NC/AT, PERRLA Neck: Supple Lungs: CTAB Cardiovascular: RRR, Normal S1, Normal S2, without murmur Abdomen: soft, non-tender, non-distended, positive bowel sound Extremities: excoriation Neurological: alert, disorganized Internal Medicine Assmt/Plan - Assessment Assessment: psychosis PARKINSON'S COPD DM2 ANEMIA SCHIZOPHRENIA GLAUCOMA - Plan Plan: continue home medications monitor bp closely accucheck with sliding scale fall precautions
[2019-10-10] MEDS: INSULIN LISPRO SLIDING SCALE 100 UNITS/ML UNIT SUBQ SCH ×4 (06:39→20:32)
[2019-10-10] MEDS: Ferrous Sulfate 325 MG TAB PO SCH ×2 (09:06→16:50)
[2019-10-10] MEDS: Calcium Carb/Vit D 500 mg/200 U Tab PO SCH (09:06)
[2019-10-10] MEDS: Multivitamin Tab PO SCH (09:08)
--- NOTE | 2019-10-10 14:42 | Progress Notes ---
DATE: 10/10/2019 SUBJECTIVE: A 73-year-old male transferred from a long term, agitated, aggressive, unruly, still aggressive, agitated, yelling at me, yelling at staff. Does not want to take any medications, does not want to be involved in treatment, escalating, yelling at staff, withdrawn, keeps to self, difficult to fully assess because he is so angry, so aggressive, yelling and cursing at me, ruminative. "I will take my medications, I will take my medications, I will take my medications," but staff noting he will not take his medications. MEDICATIONS: Reviewed. Vitals reviewed. Labs reviewed. Currently on Seroquel, refusing. MENTAL STATUS EXAMINATION: Stated age, yelling, screaming, tangential, not making sense at times, paranoid of staff, poor insight, poor impulse control. Continue 72-hour hold. The patient may need a [employer] petition. PLAN: We will continue to monitor, encourage better med compliance. JOB# [id number]
--- NOTE | 2019-10-10 17:31 | Internal Medicine Prog Note ---
Internal Medicine Subjective - Subjective Service Date: 10/10/19 Patient is:: awake, verbal, interactive Per staff patient has:: tolerating meds Internal Medicine Objective - Results Recent Labs: Laboratory Last Values POC Glucose 320 MG/DL (70 - 105) H 10/10/19 16:43 - Physical Exam Vitals and I&O: Vital Signs Temp 98.5 F 10/09/19 20:00 Pulse 70 10/10/19 16:51 Resp 18 10/09/19 20:00 BP 128/70 10/10/19 16:51 Pulse Ox 99 10/09/19 20:00 Active Medications: Current Medications Acetaminophen (Tylenol) 650 mg PO Q4H PRN PRN Reason: Pain (Mild 1-3) Stop: 12/07/19 16:46 Acetaminophen (Tylenol Extra Strength) 1,000 mg PO Q6H PRN PRN Reason: Pain (Moderate 4-6) Stop: 12/07/19 16:46 Hydrocodone Bitart/Acetaminophen ([place] 5mg/325mg) 1 tab PO Q6H PRN PRN Reason: Pain (Moderate 4-6) Stop: 12/07/19 17:49 Al Hydrox/Mg Hydrox/Simethicone (Maalox) 30 ml PO Q4HR PRN PRN Reason: GI DISTRESS Stop: 12/07/19 16:46 Amlodipine Besylate (Norvasc) 10 mg PO DAILY [facility] Stop: 12/08/19 08:59 Last Admin: 10/10/19 09:05 Dose: Not Given Ascorbic Acid (Vitamin C) 500 mg PO DAILY [facility] Stop: 12/08/19 08:59 Last Admin: 10/10/19 09:06 Dose: Not Given Aspirin (Ecotrin) 81 mg PO DAILY [facility] Stop: 12/08/19 08:59 Last Admin: 10/10/19 09:06 Dose: Not Given Bisacodyl (Dulcolax 10 Mg Supp) 10 mg RC DAILY PRN PRN Reason: Constipation Stop: 12/07/19 17:49 Calcium/Vitamin D (Oscal W/Vitamin D) 1 tab PO DAILY [facility] Stop: 12/08/19 08:59 Last Admin: 10/10/19 09:06 Dose: Not Given Docusate Sodium (Colace) 250 mg PO BID [facility] Stop: 12/08/19 08:59 Last Admin: 10/10/19 16:50 Dose: 250 mg Famotidine (Pepcid) 20 mg PO BID [facility] Stop: 12/08/19 08:59 Last Admin: 10/10/19 16:50 Dose: 20 mg Ferrous Sulfate (Iron) 325 mg PO BID [facility] Stop: 12/08/19 08:59 Last Admin: 10/10/19 16:50 Dose: 325 mg Folic Acid (Folate) 1 mg PO DAILY [facility] Stop: 12/08/19 08:59 Last Admin: 10/10/19 09:06 Dose: Not Given Glipizide (Glucotrol) 5 mg PO QDAC [facility] Stop: 12/09/19 07:29 Last Admin: 10/10/19 06:39 Dose: Not Given Hydralazine HCl (Apresoline) 50 mg PO Q8H [facility] Stop: 12/07/19 21:59 Last Admin: 10/10/19 13:56 Dose: 50 mg Ibuprofen (Motrin) 400 mg PO Q4H PRN PRN Reason: Pain (Severe 7-10) Stop: 12/07/19 16:46 Last Admin: 10/09/19 15:37 Dose: 400 mg Insulin Human Lispro (Humalog Insulin Sliding Scale) 0 units SUBQ ACHS [facility]; Protocol Stop: 12/07/19 20:59 Last Admin: 10/10/19 17:03 Dose: 8 units Latanoprost (Xalatan 0.005% Ophth Soln) 1 drop LEFT EYE HS [facility] Stop: 12/07/19 20:59 Last Admin: 10/09/19 21:31 Dose: Not Given Lisinopril (Zestril) 10 mg PO BID [facility] Stop: 12/08/19 08:59 Last Admin: 10/10/19 16:50 Dose: 10 mg Lorazepam (Ativan) 0.5 mg PO Q4HR PRN; Protocol PRN Reason: Anxiety Stop: 11/07/19 16:46 Magnesium Hydroxide (Milk Of Magnesia) 30 ml PO HS PRN PRN Reason: Constipation Metoprolol Tartrate (Lopressor) 25 mg PO BID [facility] Stop: 12/08/19 08:59 Last Admin: 10/10/19 16:51 Dose: 25 mg Multivitamins/Vitamin C (Theragran) 1 tab PO DAILY [facility] Stop: 12/08/19 08:59 Last Admin: 10/10/19 09:08 Dose: Not Given Quetiapine Fumarate (Seroquel) 50 mg PO HS [facility]; Protocol Stop: 12/08/19 20:59 Last Admin: 10/09/19 21:15 Dose: 50 mg Zolpidem Tartrate (Ambien) 5 mg PO HS PRN PRN Reason: Insomnia Stop: 12/07/19 16:46 General: alert HEENT: NC/AT, PERRLA Neck: Supple Lungs: CTAB Cardiovascular: RRR, Normal S1, Normal S2, without murmur Abdomen: soft, non-tender, non-distended, positive bowel sound Extremities: excoriation Neurological: alert, disorganized Internal Medicine Assmt/Plan - Assessment Assessment: psychosis PARKINSON'S COPD DM2 ANEMIA SCHIZOPHRENIA GLAUCOMA - Plan Plan: continue home medications monitor bp closely accucheck with sliding scale fall precautions
[2019-10-11] MEDS: Ferrous Sulfate 325 MG TAB PO SCH ×2 (08:42→16:24)
[2019-10-11] MEDS: Calcium Carb/Vit D 500 mg/200 U Tab PO SCH (08:43)
[2019-10-11] MEDS: Multivitamin Tab PO SCH (08:43)
--- NOTE | 2019-10-11 10:03 | Progress Notes ---
DATE: 10/11/2019 SUBJECTIVE: The patient was seen in the hallway. The patient appears to be guarded, easily gets frustrated, still has some poor impulse control. Otherwise, the patient appears to be in no acute distress. OBJECTIVE: VITAL SIGNS: Temperature 98.7, heart rate of 82, blood pressure 119/60, rate of respirations 20, 97% on room air. HEENT: Head is atraumatic and normocephalic. Eyes: Bilateral conjunctivae are clear. Bilateral pupils are equally round and reactive. NECK: Supple. No JVD. CARDIOVASCULAR: S1 and S2, without murmur. PULMONARY: Clear to auscultation. GASTROINTESTINAL: Soft and nontender without guarding. Positive bowel sounds. MUSCULOSKELETAL: No clubbing. No cyanosis noted. 1. Schizophrenia. 2. Parkinson's disease. 3. Chronic obstructive pulmonary disease. 4. Diabetes. 5. Anemia. 6. Glaucoma. 7. Unsteady gait. PLAN: We will continue to keep the patient in Inpatient Psychiatric Unit. We will follow up with psychiatrist to monitor the patient's condition and behavior. We will put the patient on fall precautions. Treatment plans were discussed with the patient's nurse. Treatment plans were discussed with Dr. Fletcher. JOB# [id number]
[2019-10-11] MEDS: INSULIN LISPRO SLIDING SCALE 100 UNITS/ML UNIT SUBQ SCH ×3 (11:34→20:39)
--- NOTE | 2019-10-11 23:17 | Progress Notes ---
DATE: 10/11/2019 Covering for Emile Peter M.D. SUBJECTIVE: The patient was interviewed. Case was discussed with staff. Chart and records were reviewed. Per the staff, the patient has been responding actively to internal stimuli, has episodes of yelling at times. The patient was interviewed this afternoon in the day room. The patient was very angry. He was demanding a sandwich from this provider. He was not willing to cooperate at all with the interview. Attempted to ask simple interview questions about his mood and his sleep and the patient began to get increasingly angry. He was seen mumbling to himself, talking to unseen others. He otherwise was uncooperative with the interview. MENTAL STATUS EXAMINATION: The patient is an elderly male, unkempt, appearing poor eye contact. Speech is loud and angered. His mood and affect appear to be labile. Thought process appears to be loose. Unable to assess for suicidal or homicidal thoughts, but he is hostile and threatening at times. He is actively responding to internal stimuli, also appears to be paranoid of his environment. Alert and oriented to person and place. Insight, judgment and impulse control appear to be poor. ASSESSMENT: This is a 73-year-old male, admitted to [facility], admitted since 10/08/2019 due to increasing aggression, yelling and cursing. The patient at this time continues to be psychotic, responding to internal stimuli, having significant mood swings, unable to cooperate with simple interview and has no plan for self-care. PLAN: We will continue the patient's acute hospitalization with transition the patient on to a 14-day hold. We will encourage the patient to verbalize his needs and participate in group and milieu therapy. JOB# [id number]
[2019-10-12] MEDS: INSULIN LISPRO SLIDING SCALE 100 UNITS/ML UNIT SUBQ SCH ×4 (06:38→20:56)
[2019-10-12] MEDS: Ferrous Sulfate 325 MG TAB PO SCH ×2 (09:17→16:27)
[2019-10-12] MEDS: Calcium Carb/Vit D 500 mg/200 U Tab PO SCH (09:17)
[2019-10-12] MEDS: Multivitamin Tab PO SCH (09:18)
--- NOTE | 2019-10-12 22:22 | Internal Medicine Prog Note ---
Internal Medicine Subjective - Subjective Patient is:: awake, verbal, interactive Per staff patient has:: no adverse event, no episodes of fall, tolerating meds Internal Medicine Objective - Results Recent Labs: Laboratory Last Values POC Glucose 380 MG/DL (70 - 105) H 10/12/19 20:18 - Physical Exam Vitals and I&O: Vital Signs Temp 98.2 F 10/12/19 14:00 Pulse 105 10/12/19 14:00 Resp 20 10/12/19 14:00 BP 128/75 10/12/19 14:00 Pulse Ox 97 10/12/19 14:00 Intake & Output 10/12/19 10/12/19 10/13/19 06:59 18:59 06:59 Intake Total 660 850 240 Balance 660 850 240 Intake: Oral 660 850 240 Other: # Voids 1 1 # Bowel Movements 1 1 Active Medications: Current Medications Acetaminophen (Tylenol) 650 mg PO Q4H PRN PRN Reason: Pain (Mild 1-3) Stop: 12/07/19 16:46 Acetaminophen (Tylenol Extra Strength) 1,000 mg PO Q6H PRN PRN Reason: Pain (Moderate 4-6) Stop: 12/07/19 16:46 Last Admin: 10/12/19 01:51 Dose: 1,000 mg Hydrocodone Bitart/Acetaminophen ([place] 5mg/325mg) 1 tab PO Q6H PRN PRN Reason: Pain (Moderate 4-6) Stop: 12/07/19 17:49 Al Hydrox/Mg Hydrox/Simethicone (Maalox) 30 ml PO Q4HR PRN PRN Reason: GI DISTRESS Stop: 12/07/19 16:46 Amlodipine Besylate (Norvasc) 10 mg PO DAILY [facility] Stop: 12/08/19 08:59 Last Admin: 10/12/19 09:17 Dose: Not Given Ascorbic Acid (Vitamin C) 500 mg PO DAILY [facility] Stop: 12/08/19 08:59 Last Admin: 10/12/19 09:17 Dose: Not Given Aspirin (Ecotrin) 81 mg PO DAILY [facility] Stop: 12/08/19 08:59 Last Admin: 10/12/19 09:17 Dose: Not Given Bisacodyl (Dulcolax 10 Mg Supp) 10 mg RC DAILY PRN PRN Reason: Constipation Stop: 12/07/19 17:49 Calcium/Vitamin D (Oscal W/Vitamin D) 1 tab PO DAILY [facility] Stop: 12/08/19 08:59 Last Admin: 10/12/19 09:17 Dose: Not Given Docusate Sodium (Colace) 250 mg PO BID [facility] Stop: 12/08/19 08:59 Last Admin: 10/12/19 16:27 Dose: Not Given Famotidine (Pepcid) 20 mg PO BID [facility] Stop: 12/08/19 08:59 Last Admin: 10/12/19 16:27 Dose: Not Given Ferrous Sulfate (Iron) 325 mg PO BID [facility] Stop: 12/08/19 08:59 Last Admin: 10/12/19 16:27 Dose: Not Given Folic Acid (Folate) 1 mg PO DAILY [facility] Stop: 12/08/19 08:59 Last Admin: 10/12/19 09:17 Dose: Not Given Glipizide (Glucotrol) 5 mg PO QDAC [facility] Stop: 12/09/19 07:29 Last Admin: 10/12/19 06:40 Dose: Not Given Hydralazine HCl (Apresoline) 50 mg PO Q8H [facility] Stop: 12/07/19 21:59 Last Admin: 10/12/19 14:55 Dose: Not Given Ibuprofen (Motrin) 400 mg PO Q4H PRN PRN Reason: Pain (Severe 7-10) Stop: 12/07/19 16:46 Last Admin: 10/09/19 15:37 Dose: 400 mg Insulin Human Lispro (Humalog Insulin Sliding Scale) 0 units SUBQ ACHS [facility]; Protocol Stop: 12/07/19 20:59 Last Admin: 10/12/19 20:56 Dose: 10 units Latanoprost (Xalatan 0.005% Ophth Soln) 1 drop LEFT EYE HS [facility] Stop: 12/07/19 20:59 Last Admin: 10/12/19 20:55 Dose: Not Given Lisinopril (Zestril) 10 mg PO BID [facility] Stop: 12/08/19 08:59 Last Admin: 10/12/19 16:27 Dose: Not Given Lorazepam (Ativan) 0.5 mg PO Q4HR PRN; Protocol PRN Reason: Anxiety Stop: 11/07/19 16:46 Last Admin: 04/12/20 01:52 Dose: 0.5 mg Magnesium Hydroxide (Milk Of Magnesia) 30 ml PO HS PRN PRN Reason: Constipation Metoprolol Tartrate (Lopressor) 25 mg PO BID [facility] Stop: 12/08/19 08:59 Last Admin: 10/12/19 16:27 Dose: Not Given Multivitamins/Vitamin C (Theragran) 1 tab PO DAILY [facility] Stop: 12/08/19 08:59 Last Admin: 10/12/19 09:18 Dose: Not Given Quetiapine Fumarate (Seroquel) 50 mg PO HS [facility]; Protocol Stop: 12/08/19 20:59 Last Admin: 10/12/19 20:55 Dose: 50 mg Zolpidem Tartrate (Ambien) 5 mg PO HS PRN PRN Reason: Insomnia Stop: 12/07/19 16:46 Last Admin: 10/12/19 20:55 Dose: 5 mg General: alert, NAD HEENT: NC/AT, PERRLA Neck: Supple Lungs: CTAB Cardiovascular: RRR, Normal S1, Normal S2 Abdomen: soft, non-tender, non-distended, positive bowel sound Extremities: excoriation Neurological: alert, disorganized Internal Medicine Assmt/Plan - Assessment Assessment: Schizophrenia Parkinson's disease COPD DM Anemia Glaucoma Unsteady gait - Plan Plan: Continue current treatment Fall and Safety precautions Psychiatry for psych management Continue to monitor VS, IO Pain as needed Continue to collaborate with interdisciplinary team.
--- NOTE | 2019-10-12 23:06 | Progress Notes ---
DATE: 10/12/2019 PHYSICIAN: Dr. Jenn Goldstein. COVERING FOR: Dr. Emile Peter. SUBJECTIVE: The patient was interviewed. Case was discussed with staff. Chart and records were reviewed. Per the staff, the patient had poor sleep, only slept about 3 hours last night. Has been anxious, agitated, responding heavily to internal stimuli. The patient became extremely agitated today and refused all medications and was very threatening and required 4 staff members to maintain his safety. Emergent medications were ordered; however, staff were able to redirect the patient. He was uncooperative with the interview. MENTAL STATUS EXAMINATION: The patient is an elderly male, unkempt with poor eye contact. Speech is loud and angered. Mood and affect appear to be labile. Thought process is loose. Unable to assess for suicidal or homicidal thoughts, but the patient has been hostile and threatening. He is actively responding to internal stimuli. He appears to be paranoid of his environment. He is alert and oriented to person and place. Insight, judgment and impulse control appear to be poor. ASSESSMENT: A 73-year-old male admitted to [facility] since 10/08/2019 due to increasing aggression, yelling and cursing. The patient at this time continues to have loud threatening behavior towards others including staff, significant mood swings, threatening, ongoing psychosis with responding to internal stimuli, paranoid of his environment, refusing all medications and no plan for self-care. PLAN: We will continue the patient's acute hospitalization. We will continue medications as prescribed. We will consider [employer] petition. We will encourage the patient to verbalize his needs and to participate in group and milieu therapy. JOB# [id number]
[2019-10-13] MEDS: INSULIN LISPRO SLIDING SCALE 100 UNITS/ML UNIT SUBQ SCH ×4 (06:49→20:50)
[2019-10-13] MEDS: Calcium Carb/Vit D 500 mg/200 U Tab PO SCH (08:39)
[2019-10-13] MEDS: Multivitamin Tab PO SCH (08:40)
[2019-10-13] MEDS: Ferrous Sulfate 325 MG TAB PO SCH ×2 (08:40→16:32)
--- NOTE | 2019-10-13 13:40 | Progress Notes ---
DATE: 10/13/2019 SUBJECTIVE: A 73-year-old -[place] male, currently in the hospital, slept, erratically anxious, agitated, still talking to self, responding to internal stimuli, pacing back and forth in a wheelchair, still threatening concerns about his med compliance, was not taking medications last week. On exam, hard to really understand what he is saying, just mumbling to self, talking to self, paranoid, yelling, screaming, sometimes taking medications. He is taking some of his medications. Medications were reviewed. Vitals were reviewed. Labs were reviewed. Blood pressure 139/71, pulse of 109, somewhat more compliant with monitoring of blood pressure. Stated age, in a wheelchair. Fair eye contact, mumbling to self, not making much sense. Poor insight, poor impulse control, concerns he may strike out at others. PLAN: I will continue inpatient monitoring. Complex case given his poor compliance. Difficult to really understand what he is saying. I will be titrating his dosing of Seroquel. Monitor vitals. [facility]# [id number]
[2019-10-13] MEDS ORDERED: Haloperidol Lactate 5 mg/mL 1mL Vial IM ONE (21:30)
[2019-10-14] MEDS: INSULIN LISPRO SLIDING SCALE 100 UNITS/ML UNIT SUBQ SCH ×4 (06:46→20:38)
[2019-10-14] MEDS: Multivitamin Tab PO SCH (08:08)
[2019-10-14] MEDS: Calcium Carb/Vit D 500 mg/200 U Tab PO SCH (08:08)
[2019-10-14] MEDS: Ferrous Sulfate 325 MG TAB PO SCH ×2 (08:09→16:44)
--- NOTE | 2019-10-14 12:52 | Internal Medicine Prog Note ---
Internal Medicine Subjective - Subjective Service Date: 10/14/19 Patient is:: awake, verbal, interactive Per staff patient has:: no adverse event, no episodes of fall, tolerating meds Internal Medicine Objective - Results Recent Labs: Laboratory Last Values POC Glucose 158 MG/DL (70 - 105) H 10/14/19 11:35 - Physical Exam Vitals and I&O: Vital Signs Temp 98.8 F 10/14/19 05:27 Pulse 95 10/14/19 08:11 Resp 17 10/14/19 08:00 BP 129/72 10/14/19 08:11 Pulse Ox 99 10/14/19 05:27 Intake & Output 10/13/19 10/14/19 10/14/19 18:59 06:59 18:59 Intake Total 1200 120 Balance 1200 120 Intake: Oral 1080 120 Other 120 Other: # Voids 3 3 # Bowel Movements 0 0 Active Medications: Current Medications Acetaminophen (Tylenol) 650 mg PO Q4H PRN PRN Reason: Pain (Mild 1-3) Stop: 12/07/19 16:46 Acetaminophen (Tylenol Extra Strength) 1,000 mg PO Q6H PRN PRN Reason: Pain (Moderate 4-6) Stop: 12/07/19 16:46 Last Admin: 10/12/19 01:51 Dose: 1,000 mg Hydrocodone Bitart/Acetaminophen ([place] 5mg/325mg) 1 tab PO Q6H PRN PRN Reason: Pain (Moderate 4-6) Stop: 12/07/19 17:49 Al Hydrox/Mg Hydrox/Simethicone (Maalox) 30 ml PO Q4HR PRN PRN Reason: GI DISTRESS Stop: 12/07/19 16:46 Amlodipine Besylate (Norvasc) 10 mg PO DAILY [facility] Stop: 12/08/19 08:59 Last Admin: 10/14/19 08:10 Dose: 10 mg Ascorbic Acid (Vitamin C) 500 mg PO DAILY [facility]AN Stop: 12/08/19 08:59 Last Admin: 10/14/19 08:08 Dose: 500 mg Aspirin (Ecotrin) 81 mg PO DAILY [facility]AN Stop: 12/08/19 08:59 Last Admin: 10/14/19 08:09 Dose: 81 mg Bisacodyl (Dulcolax 10 Mg Supp) 10 mg RC DAILY PRN PRN Reason: Constipation Stop: 12/07/19 17:49 Calcium/Vitamin D (Oscal W/Vitamin D) 1 tab PO DAILY [facility] Stop: 12/08/19 08:59 Last Admin: 10/14/19 08:08 Dose: 1 tab Docusate Sodium (Colace) 250 mg PO BID [facility] Stop: 12/08/19 08:59 Last Admin: 10/14/19 08:09 Dose: 250 mg Famotidine (Pepcid) 20 mg PO BID [facility] Stop: 12/08/19 08:59 Last Admin: 10/14/19 08:08 Dose: 20 mg Ferrous Sulfate (Iron) 325 mg PO BID [facility] Stop: 12/08/19 08:59 Last Admin: 10/14/19 08:09 Dose: 325 mg Folic Acid (Folate) 1 mg PO DAILY [facility] Stop: 12/08/19 08:59 Last Admin: 10/14/19 08:09 Dose: 1 mg Glipizide (Glucotrol) 5 mg PO QDAC [facility] Stop: 12/09/19 07:29 Last Admin: 10/14/19 06:46 Dose: 5 mg Hydralazine HCl (Apresoline) 50 mg PO Q8H [facility] Stop: 12/07/19 21:59 Last Admin: 10/14/19 05:36 Dose: 50 mg Ibuprofen (Motrin) 400 mg PO Q4H PRN PRN Reason: Pain (Severe 7-10) Stop: 12/07/19 16:46 Last Admin: 10/09/19 15:37 Dose: 400 mg Insulin Human Lispro (Humalog Insulin Sliding Scale) 0 units SUBQ ACHS [facility]; Protocol Stop: 12/07/19 20:59 Last Admin: 10/14/19 11:49 Dose: 2 units Latanoprost (Xalatan 0.005% Ophth Soln) 1 drop LEFT EYE HS [facility] Stop: 12/07/19 20:59 Last Admin: 10/13/19 20:50 Dose: Not Given Lisinopril (Zestril) 10 mg PO BID [facility] Stop: 12/08/19 08:59 Last Admin: 10/14/19 08:11 Dose: 10 mg Lorazepam (Ativan) 0.5 mg PO Q4HR PRN; Protocol PRN Reason: Anxiety Stop: 11/07/19 16:46 Last Admin: 10/13/19 21:57 Dose: 0.5 mg Magnesium Hydroxide (Milk Of Magnesia) 30 ml PO HS PRN PRN Reason: Constipation Metoprolol Tartrate (Lopressor) 25 mg PO BID [facility] Stop: 12/08/19 08:59 Last Admin: 10/14/19 08:10 Dose: 25 mg Multivitamins/Vitamin C (Theragran) 1 tab PO DAILY [facility] Stop: 12/08/19 08:59 Last Admin: 10/14/19 08:08 Dose: 1 tab Quetiapine Fumarate (Seroquel) 50 mg PO HS [facility]; Protocol Stop: 12/08/19 20:59 Last Admin: 10/13/19 20:51 Dose: 50 mg Quetiapine Fumarate (Seroquel) 12.5 mg PO BID [facility]; Protocol Stop: 12/12/19 16:59 Last Admin: 10/14/19 08:09 Dose: 12.5 mg Zolpidem Tartrate (Ambien) 5 mg PO HS PRN PRN Reason: Insomnia Stop: 12/07/19 16:46 Last Admin: 10/13/19 20:52 Dose: 5 mg General: alert, NAD HEENT: NC/AT, PERRLA Neck: Supple Lungs: CTAB Cardiovascular: RRR, Normal S1, Normal S2 Abdomen: soft, non-tender, non-distended, positive bowel sound Extremities: excoriation Neurological: alert, disorganized Internal Medicine Assmt/Plan - Assessment Assessment: psychosis PARKINSON'S COPD DM2 ANEMIA SCHIZOPHRENIA GLAUCOMA - Plan Plan: continue home medications monitor bp closely accucheck with sliding scale fall precautions Nutritional Asmnt/Malnutr-PDOC - Dietary Evaluation Malnutrition Findings (Please click <Entered> for more info): Nutritional Asmnt/Malnutrition Start: 10/13/19 15: 19 Text: Status: Complete Freq: Protocol: Document 10/13/19 15:19 DAVID (Rec: 10/13/19 15:23 DAVID [id number] [id number]) Nutritional Asmnt/Malnutrition Patient General Information Nutritional Screening Moderate Risk Diagnosis Psychosis Pertinent Medical Hx/Surgical Hx Parkinsons Disease, COPD, DMT2, Anemia, Glaucoma, Schizophrenia Subjective Information Pt is a 73-year-old male admitted on 10/07 d/t increased agitation, yelling, aggressive behavior at nursing facilityPt is eating an estimated 77% of meals since admit date (x4 days) Per Meal/ Nutrition Activity Record. Dietary is currently providing an estimated 2000 kcals and 115 gm Pro, per Pt PO intake this is providing an estimated 1540 kcals and 90gm Pro to meet 96% kcal and 100+%. Pt has Glucotrol included in medication regimen but has refused it since admittance along with other medications. Recommend adding CCHO 60gm to current diet Rx for improved glucose control. Spoke with pt nurse Aurora concerning diet recommendation , Aurora stated the MD has been made aware of pt refusal to medications. Anthropometrics HT: 59 WT: 221 LB (100.45 kg) ABW: 175 LB (79.66 kg) BMI: 32.64 (Obese) GI/ Skin Integrity GI: WNL, Soft, Flat, Non- tender BM: 10/12 x1 I/O: 1210/Not Noted Skin: WNL, Intact, Scar tissue on legs Bear: 17 Diet Order: Cardiac, NCS Estimated Energy Needs: (Obese , ABW) 9618-3849 kcals (20-25 kcals/ kg) 60-70g Pro (0.8-.10 g/kg) 0539-1075 ml (20-25ml/kg) Current Diet Order/ Nutrition Support Cardiac, NCS Pertinent Medications Maalox (PRN), Vitamin C, Dulcolax (PRN), Oscal with Vitamin D, Pepcid, Ferrous Sulfate, INS-SS, Glucotrol, MOM (PRN), Theragran Pertinent Labs POC Glucose (last 24 hours): 267, 241, 380, 204 3: Glucose 353, BUN/Cr 31/1 .2, GFR 47 Nutritional Hx/Data Height 5 ft 9 in Height (Calculated Centimeters) 175.3 Current Weight (lbs) 221 lb Weight (Calculated Kilograms) 100.2 Weight (Calculated Grams) 345312.9 [place] Body Weight 160 LB (72.73 kg) % [place] Body Weight 138 Body Mass Index (BMI) 32.6 Weight Status Obese GI Symptoms Last BM 10/12 x1 Skin Integrity/Comment: Skin: WNL, Intact, Scar tissue on legs Bear: 17 Current %PO Good (75-100%) Estimated Nutritional Goals BEE in Kcals: Adj wt of IBW Calories/Kcals/Kg 20-25 Kcals Calculated 0438-9517 Protein: Adj wt of IBW Protein g/k.8-1.0 Protein Calculated 60-70 Fluid: ml 9147-7940 ml (20-25ml/kg) Nutritional Problem 2. Problem Problem Obesity Etiology r/t consistent energy overconsumption Signs/Symptoms: aeb BMI >30 (32.64). 1. Problem Problem Altered nutrition related labs Etiology r/t endocrine dysfunction Signs/Symptoms: aeb Hs DM, labs (09/22) Glucose 353, POC Glucose (last 24 hours): 267, 241, 380, 204. Malnutrition Related to Morbid Obesity Malnutrition related to morbid obesity No Intervention/Recommendation Comments 1.Recommend adding CCHO 60gm to current diet Rx for improved glucose control. 2.Continue antihyperglycemic medications for glucose control per MD order. Expected Outcomes/Goals Expected Outcomes/Goals 1.PO intake to continue to meet >75% of estimated nutritional needs. 2.Monitor PO intake, wt, nutrition related labs to trend WNL, and skin integrity. 3.Gradual weight loss (0.5-1.0 LB/week) trending towards IBW preferred. 4.F/U as moderate risk in 3-5 days, 10/15-10/17
--- NOTE | 2019-10-14 13:31 | Progress Notes ---
DATE: 10/14/[address] Peter. Case was discussed with staff of the patient, reviewed records. This is a 73-year-old male who was admitted on 10/08/2019 because of agitation and aggressive behavior. The patient was yelling, cursing staff, aggressive, could not take care of himself, poorly oriented, not wanting to take medication, not wanting to give up his belongings with a history of schizophrenia. He is not , no children, The patient diagnosed with schizophrenia. The patient continues to be easily agitated, erratic, anxious, poor sleep, responding to internal stimuli, unable to make safe plan for self-care. He is on a wheelchair, per nursing staff he has been refusing his medication. So, there is no point in adjusting his medication if he has not taking that. His current medication includes Seroquel 50 mg at bedtime and 12.5 mg twice a day with no side effects, no sedation, no nausea, no extrapyramidal symptoms when he takes it. We will continue outpatient group therapy, milieu therapy, and adjust medications as needed. JOB# [id number] MARILYN
[2019-10-15] MEDS: INSULIN LISPRO SLIDING SCALE 100 UNITS/ML UNIT SUBQ SCH ×4 (06:48→20:32)
[2019-10-15] MEDS: Multivitamin Tab PO SCH (08:21)
[2019-10-15] MEDS: Ferrous Sulfate 325 MG TAB PO SCH ×2 (08:22→17:16)
[2019-10-15] MEDS: Calcium Carb/Vit D 500 mg/200 U Tab PO SCH (08:23)
--- NOTE | 2019-10-15 13:37 | Internal Medicine Prog Note ---
Internal Medicine Subjective - Subjective Service Date: 10/15/19 Patient is:: awake, verbal, interactive Per staff patient has:: no adverse event, no episodes of fall, tolerating meds Internal Medicine Objective - Results Recent Labs: Laboratory Last Values POC Glucose 208 MG/DL (70 - 105) H 10/15/19 06:27 - Physical Exam Vitals and I&O: Vital Signs Temp 98.3 F 10/15/19 05:20 Pulse 99 10/15/19 08:23 Resp 18 10/15/19 05:20 BP 157/81 10/15/19 08:23 Pulse Ox 97 10/15/19 05:20 Intake & Output 10/14/19 10/15/19 10/15/19 18:59 06:59 18:59 Intake Total 120 Balance 120 Intake: Oral 120 Other: # Voids 2 3 # Bowel Movements 0 0 Active Medications: Current Medications Acetaminophen (Tylenol) 650 mg PO Q4H PRN PRN Reason: Pain (Mild 1-3) Stop: 12/07/19 16:46 Acetaminophen (Tylenol Extra Strength) 1,000 mg PO Q6H PRN PRN Reason: Pain (Moderate 4-6) Stop: 12/07/19 16:46 Last Admin: 10/12/19 01:51 Dose: 1,000 mg Hydrocodone Bitart/Acetaminophen ([place] 5mg/325mg) 1 tab PO Q6H PRN PRN Reason: Pain (Moderate 4-6) Stop: 12/07/19 17:49 Al Hydrox/Mg Hydrox/Simethicone (Maalox) 30 ml PO Q4HR PRN PRN Reason: GI DISTRESS Stop: 12/07/19 16:46 Amlodipine Besylate (Norvasc) 10 mg PO DAILY [facility] Stop: 12/08/19 08:59 Last Admin: 10/15/19 08:23 Dose: 10 mg Ascorbic Acid (Vitamin C) 500 mg PO DAILY [facility] Stop: 12/08/19 08:59 Last Admin: 10/15/19 08:22 Dose: 500 mg Aspirin (Ecotrin) 81 mg PO DAILY [facility] Stop: 12/08/19 08:59 Last Admin: 10/15/19 08:21 Dose: 81 mg Bisacodyl (Dulcolax 10 Mg Supp) 10 mg RC DAILY PRN PRN Reason: IF MOM IS INEFFECTIVE Stop: 12/07/19 17:49 Calcium/Vitamin D (Oscal W/Vitamin D) 1 tab PO DAILY [facility] Stop: 12/08/19 08:59 Last Admin: 10/15/19 08:23 Dose: 1 tab Docusate Sodium (Colace) 250 mg PO BID [facility] Stop: 12/08/19 08:59 Last Admin: 10/15/19 08:17 Dose: 250 mg Famotidine (Pepcid) 20 mg PO BID [facility] Stop: 12/08/19 08:59 Last Admin: 10/15/19 08:22 Dose: 20 mg Ferrous Sulfate (Iron) 325 mg PO BID [facility] Stop: 12/08/19 08:59 Last Admin: 10/15/19 08:22 Dose: 325 mg Folic Acid (Folate) 1 mg PO DAILY [facility] Stop: 12/08/19 08:59 Last Admin: 10/15/19 08:17 Dose: 1 mg Glipizide (Glucotrol) 5 mg PO QDAC [facility] Stop: 12/09/19 07:29 Last Admin: 10/15/19 06:48 Dose: 5 mg Hydralazine HCl (Apresoline) 50 mg PO Q8H [facility] Stop: 12/07/19 21:59 Last Admin: 10/15/19 06:06 Dose: 50 mg Ibuprofen (Motrin) 400 mg PO Q4H PRN PRN Reason: Pain (Severe 7-10) Stop: 12/07/19 16:46 Last Admin: 10/09/19 15:37 Dose: 400 mg Insulin Human Lispro (Humalog Insulin Sliding Scale) 0 units SUBQ ACHS [facility]; Protocol Stop: 12/07/19 20:59 Last Admin: 10/15/19 11:50 Dose: Not Given Latanoprost (Xalatan 0.005% Ophth Soln) 1 drop LEFT EYE HS [facility] Stop: 12/07/19 20:59 Last Admin: 10/14/19 21:08 Dose: Not Given Lisinopril (Zestril) 10 mg PO BID [facility] Stop: 12/08/19 08:59 Last Admin: 10/15/19 08:22 Dose: 10 mg Lorazepam (Ativan) 0.5 mg PO Q4HR PRN; Protocol PRN Reason: Anxiety Stop: 11/07/19 16:46 Last Admin: 10/13/19 21:57 Dose: 0.5 mg Magnesium Hydroxide (Milk Of Magnesia) 30 ml PO HS PRN PRN Reason: Constipation Metoprolol Tartrate (Lopressor) 25 mg PO BID [facility] Stop: 12/08/19 08:59 Last Admin: 10/15/19 08:21 Dose: 25 mg Multivitamins/Vitamin C (Theragran) 1 tab PO DAILY [facility] Stop: 12/08/19 08:59 Last Admin: 10/15/19 08:21 Dose: 1 tab Quetiapine Fumarate (Seroquel) 12.5 mg PO BID [facility]; Protocol Stop: 12/12/19 16:59 Last Admin: 10/15/19 08:17 Dose: 12.5 mg Quetiapine Fumarate 50 mg/ (Quetiapine Fumarate 25 mg) 75 mg PO HS [facility] Stop: 12/14/19 20:59 Zolpidem Tartrate (Ambien) 5 mg PO HS PRN PRN Reason: Insomnia Stop: 12/07/19 16:46 Last Admin: 10/13/19 20:52 Dose: 5 mg General: alert, NAD HEENT: NC/AT, PERRLA Neck: Supple Lungs: CTAB Cardiovascular: RRR, Normal S1, Normal S2 Abdomen: soft, non-tender, non-distended, positive bowel sound Extremities: excoriation Neurological: alert, disorganized Internal Medicine Assmt/Plan - Assessment Assessment: psychosis PARKINSON'S COPD DM2 ANEMIA SCHIZOPHRENIA GLAUCOMA - Plan Plan: continue home medications monitor bp closely accucheck with sliding scale fall precautions Nutritional Asmnt/Malnutr-PDOC - Dietary Evaluation Malnutrition Findings (Please click <Entered> for more info): Nutritional Asmnt/Malnutrition Start: 10/13/19 15: 19 Text: Status: Complete Freq: Protocol: Document 10/13/19 15:19 DAVID (Rec: 10/13/19 15:23 DAVID [id number]) Nutritional Asmnt/Malnutrition Patient General Information Nutritional Screening Moderate Risk Diagnosis Psychosis Pertinent Medical Hx/Surgical Hx Parkinsons Disease, COPD, DMT2, Anemia, Glaucoma, Schizophrenia Subjective Information Pt is a 73-year-old male admitted on 10/07 d/t increased agitation, yelling, aggressive behavior at nursing facilityPt is eating an estimated 77% of meals since admit date (x4 days) Per Meal/ Nutrition Activity Record. Dietary is currently providing an estimated 2000 kcals and 115 gm Pro, per Pt PO intake this is providing an estimated 1540 kcals and 90gm Pro to meet 96% kcal and 100+%. Pt has Glucotrol included in medication regimen but has refused it since admittance along with other medications. Recommend adding CCHO 60gm to current diet Rx for improved glucose control. Spoke with pt nurse Aurora concerning diet recommendation , Aurora stated the MD has been made aware of pt refusal to medications. Anthropometrics HT: 59 WT: 221 LB (100.45 kg) ABW: 175 LB (79.66 kg) BMI: 32.64 (Obese) GI/ Skin Integrity GI: WNL, Soft, Flat, Non- tender BM: 10/12 x1 I/O: 1210/Not Noted Skin: WNL, Intact, Scar tissue on legs Bear: 17 Diet Order: Cardiac, NCS Estimated Energy Needs: (Obese , ABW) 2816-0638 kcals (20-25 kcals/ kg) 60-70g Pro (0.8-.10 g/kg) 5194-9108 ml (20-25ml/kg) Current Diet Order/ Nutrition Support Cardiac, NCS Pertinent Medications Maalox (PRN), Vitamin C, Dulcolax (PRN), Oscal with Vitamin D, Pepcid, Ferrous Sulfate, INS-SS, Glucotrol, MOM (PRN), Theragran Pertinent Labs POC Glucose (last 24 hours): 267, 241, 380, 204 3: Glucose 353, BUN/Cr 31/1 .2, GFR 47 Nutritional Hx/Data Height 5 ft 9 in Height (Calculated Centimeters) 175.3 Current Weight (lbs) 221 lb Weight (Calculated Kilograms) 100.2 Weight (Calculated Grams) 870776.9 [place] Body Weight 160 LB (72.73 kg) % [place] Body Weight 138 Body Mass Index (BMI) 32.6 Weight Status Obese GI Symptoms Last BM 10/12 x1 Skin Integrity/Comment: Skin: WNL, Intact, Scar tissue on legs Bear: 17 Current %PO Good (75-100%) Estimated Nutritional Goals BEE in Kcals: Adj wt of IBW Calories/Kcals/Kg 20-25 Kcals Calculated 7474-3238 Protein: Adj wt of IBW Protein g/k.8-1.0 Protein Calculated 60-70 Fluid: ml 5106-1673 ml (20-25ml/kg) Nutritional Problem 2. Problem Problem Obesity Etiology r/t consistent energy overconsumption Signs/Symptoms: aeb BMI >30 (32.64). 1. Problem Problem Altered nutrition related labs Etiology r/t endocrine dysfunction Signs/Symptoms: aeb Hs DM, labs (09/22) Glucose 353, POC Glucose (last 24 hours): 267, 241, 380, 204. Malnutrition Related to Morbid Obesity Malnutrition related to morbid obesity No Intervention/Recommendation Comments 1.Recommend adding CCHO 60gm to current diet Rx for improved glucose control. 2.Continue antihyperglycemic medications for glucose control per MD order. Expected Outcomes/Goals Expected Outcomes/Goals 1.PO intake to continue to meet >75% of estimated nutritional needs. 2.Monitor PO intake, wt, nutrition related labs to trend WNL, and skin integrity. 3.Gradual weight loss (0.5-1.0 LB/week) trending towards IBW preferred. 4.F/U as moderate risk in 3-5 days, 10/15-10/17
--- NOTE | 2019-10-15 16:05 | Progress Notes ---
DATE: 10/15/2019 SUBJECTIVE: A 73-year-old -[place] male coming in agitation, aggressive behaviors, yelling, screaming. On exam, he remains disoriented, mumbling, and hard to really understand what he is saying. Poor sleep, irritated, just rolling around his wheelchair, confused, preoccupied, mumbling to self, yelling, agitated, aggressive, and labile. Time was spent with the patient and nursing notes were reviewed. Medications reviewed. Labs were reviewed. Vitals reviewed, blood pressure 122/82 and pulse of 68. Evaluated for any medication side effects. None noted. No EPS, no akathisia, no oversedation. MENTAL STATUS EXAMINATION: Disheveled, unkempt, mumbling to self, disoriented, hard to understand, difficult to fully assess, paranoid, preoccupied. DIAGNOSIS: Unchanged, schizophrenia. PLAN: We will increase dosing of Seroquel, ongoing symptoms, safety concerns, psychotic symptoms, complex case given hard to assess him, also difficult to control symptoms, chronic symptoms. [facility]# [id number]
[2019-10-16] MEDS: INSULIN LISPRO SLIDING SCALE 100 UNITS/ML UNIT SUBQ SCH ×4 (06:30→21:00)
[2019-10-16] MEDS: Multivitamin Tab PO SCH (08:35)
[2019-10-16] MEDS: Ferrous Sulfate 325 MG TAB PO SCH ×2 (08:36→16:40)
[2019-10-16] MEDS: Calcium Carb/Vit D 500 mg/200 U Tab PO SCH (08:36)
--- NOTE | 2019-10-16 20:05 | Progress Notes ---
DATE: 10/16/2019 SUBJECTIVE: A 73-year-old male, currently in the hospital, slept about 7 hours last night, still noted to be irritable, angry, easily agitated, very hard to understand what he says. Still acting out behaviors, loud, gets really upset. I tried to talk to him. I do not get very far. He is not really making much sense, really no idea what he is saying. It is very difficult to comprehend. Seems to be tolerant of the medications. Sleeping better as noted. Staff noting he is somewhat calmer than when he first got here. Medications were reviewed. Vitals were reviewed. Labs were reviewed. Blood pressure 126/77, pulse of 88. I evaluated him for any medication side effects, none noted. MENTAL STATUS: In a wheelchair, stated age, disheveled, mumbling to self, hard to understand, calmer than yesterday. DIAGNOSIS: Unchanged schizophrenia. PLAN: We will increase dosing of Seroquel today. Complex case given slow to control symptoms. We will titrate dosing of Seroquel. JOB# [id number]
[2019-10-17] MEDS: INSULIN LISPRO SLIDING SCALE 100 UNITS/ML UNIT SUBQ SCH ×4 (06:51→21:23)
[2019-10-17] MEDS: Calcium Carb/Vit D 500 mg/200 U Tab PO SCH (08:48)
[2019-10-17] MEDS: Multivitamin Tab PO SCH (08:48)
[2019-10-17] MEDS: Ferrous Sulfate 325 MG TAB PO SCH ×2 (08:48→16:38)
--- NOTE | 2019-10-17 14:13 | Internal Medicine Prog Note ---
Internal Medicine Subjective - Subjective Service Date: 10/17/19 Patient is:: awake, verbal, interactive Per staff patient has:: no adverse event, no episodes of fall, tolerating meds Internal Medicine Objective - Results Recent Labs: Laboratory Last Values POC Glucose 141 MG/DL (70 - 105) H 10/17/19 11:51 - Physical Exam Vitals and I&O: Vital Signs Temp 98.2 F 10/17/19 05:49 Pulse 97 10/17/19 08:51 Resp 18 10/17/19 08:00 BP 127/66 10/17/19 08:51 Pulse Ox 97 10/17/19 05:49 Intake & Output 10/16/19 10/17/19 10/17/19 18:59 06:59 18:59 Intake Total 1220 240 Balance 1220 240 Intake: Oral 1220 240 Other: # Voids 3 2 # Bowel Movements 0 2 Active Medications: Current Medications Acetaminophen (Tylenol) 650 mg PO Q4H PRN PRN Reason: Pain (Mild 1-3) Stop: 12/07/19 16:46 Acetaminophen (Tylenol Extra Strength) 1,000 mg PO Q6H PRN PRN Reason: Pain (Moderate 4-6) Stop: 12/07/19 16:46 Last Admin: 10/12/19 01:51 Dose: 1,000 mg Hydrocodone Bitart/Acetaminophen ([place] 5mg/325mg) 1 tab PO Q6H PRN PRN Reason: Pain (Moderate 4-6) Stop: 12/07/19 17:49 Al Hydrox/Mg Hydrox/Simethicone (Maalox) 30 ml PO Q4HR PRN PRN Reason: GI DISTRESS Stop: 12/07/19 16:46 Amlodipine Besylate (Norvasc) 10 mg PO DAILY [facility] Stop: 12/08/19 08:59 Last Admin: 10/17/19 08:49 Dose: 10 mg Ascorbic Acid (Vitamin C) 500 mg PO DAILY [facility] Stop: 12/08/19 08:59 Last Admin: 10/17/19 08:54 Dose: 500 mg Aspirin (Ecotrin) 81 mg PO DAILY [facility] Stop: 12/08/19 08:59 Last Admin: 10/17/19 08:48 Dose: 81 mg Bisacodyl (Dulcolax 10 Mg Supp) 10 mg RC DAILY PRN PRN Reason: IF MOM IS INEFFECTIVE Stop: 12/07/19 17:49 Calcium/Vitamin D (Oscal W/Vitamin D) 1 tab PO DAILY [facility] Stop: 12/08/19 08:59 Last Admin: 10/17/19 08:48 Dose: 1 tab Docusate Sodium (Colace) 250 mg PO BID [facility] Stop: 12/08/19 08:59 Last Admin: 10/17/19 08:49 Dose: 250 mg Famotidine (Pepcid) 20 mg PO BID [facility] Stop: 12/08/19 08:59 Last Admin: 10/17/19 08:48 Dose: 20 mg Ferrous Sulfate (Iron) 325 mg PO BID [facility] Stop: 12/08/19 08:59 Last Admin: 10/17/19 08:48 Dose: 325 mg Folic Acid (Folate) 1 mg PO DAILY [facility] Stop: 12/08/19 08:59 Last Admin: 10/17/19 08:49 Dose: 1 mg Glipizide (Glucotrol) 5 mg PO QDAC [facility] Stop: 12/09/19 07:29 Last Admin: 10/17/19 06:53 Dose: 5 mg Hydralazine HCl (Apresoline) 50 mg PO Q8H [facility] Stop: 12/07/19 21:59 Last Admin: 10/17/19 06:53 Dose: 50 mg Ibuprofen (Motrin) 400 mg PO Q4H PRN PRN Reason: Pain (Severe 7-10) Stop: 12/07/19 16:46 Last Admin: 10/09/19 15:37 Dose: 400 mg Insulin Human Lispro (Humalog Insulin Sliding Scale) 0 units SUBQ ACHS [facility]; Protocol Stop: 12/07/19 20:59 Last Admin: 10/17/19 11:59 Dose: Not Given Latanoprost (Xalatan 0.005% Ophth Soln) 1 drop LEFT EYE HS [facility] Stop: 12/07/19 20:59 Last Admin: 10/16/19 21:35 Dose: 1 drop Lisinopril (Zestril) 10 mg PO BID [facility] Stop: 12/08/19 08:59 Last Admin: 10/17/19 08:51 Dose: 10 mg Lorazepam (Ativan) 0.5 mg PO Q4HR PRN; Protocol PRN Reason: Anxiety Stop: 11/07/19 16:46 Last Admin: 10/13/19 21:57 Dose: 0.5 mg Magnesium Hydroxide (Milk Of Magnesia) 30 ml PO HS PRN PRN Reason: Constipation Metoprolol Tartrate (Lopressor) 25 mg PO BID [facility] Stop: 12/08/19 08:59 Last Admin: 10/17/19 08:50 Dose: 25 mg Multivitamins/Vitamin C (Theragran) 1 tab PO DAILY [facility] Stop: 12/08/19 08:59 Last Admin: 10/17/19 08:48 Dose: 1 tab Quetiapine Fumarate (Seroquel) 12.5 mg PO BID [facility]; Protocol Stop: 12/12/19 16:59 Last Admin: 10/17/19 08:48 Dose: 12.5 mg Quetiapine Fumarate (Seroquel) 100 mg PO HS [facility] Stop: 12/15/19 20:59 Last Admin: 10/16/19 21:35 Dose: 100 mg Zolpidem Tartrate (Ambien) 5 mg PO HS PRN PRN Reason: Insomnia Stop: 12/07/19 16:46 Last Admin: 10/16/19 22:25 Dose: 5 mg General: alert, NAD HEENT: NC/AT, PERRLA Neck: Supple Lungs: CTAB Cardiovascular: RRR, Normal S1, Normal S2 Abdomen: soft, non-tender, non-distended, positive bowel sound Extremities: excoriation Neurological: alert, disorganized Internal Medicine Assmt/Plan - Assessment Assessment: psychosis PARKINSON'S COPD DM2 ANEMIA SCHIZOPHRENIA GLAUCOMA - Plan Plan: continue home medications monitor bp closely accucheck with sliding scale fall precautions Nutritional Asmnt/Malnutr-PDOC - Dietary Evaluation Malnutrition Findings (Please click <Entered> for more info): Nutritional Asmnt/Malnutrition Start: 10/13/19 15: 19 Text: Status: Complete Freq: Protocol: Document 10/13/19 15:19 DAVID (Rec: 10/13/19 15:23 [id number] [id number]) Nutritional Asmnt/Malnutrition Patient General Information Nutritional Screening Moderate Risk Diagnosis Psychosis Pertinent Medical Hx/Surgical Hx Parkinsons Disease, COPD, DMT2, Anemia, Glaucoma, Schizophrenia Subjective Information Pt is a 73-year-old male admitted on 10/07 d/t increased agitation, yelling, aggressive behavior at nursing facilityPt is eating an estimated 77% of meals since admit date (x4 days) Per Meal/ Nutrition Activity Record. Dietary is currently providing an estimated 2000 kcals and 115 gm Pro, per Pt PO intake this is providing an estimated 1540 kcals and 90gm Pro to meet 96% kcal and 100+%. Pt has Glucotrol included in medication regimen but has refused it since admittance along with other medications. Recommend adding CCHO 60gm to current diet Rx for improved glucose control. Spoke with pt nurse Aurora concerning diet recommendation , Aurora stated the MD has been made aware of pt refusal to medications. Anthropometrics HT: 59 WT: 221 LB (100.45 kg) ABW: 175 LB (79.66 kg) BMI: 32.64 (Obese) GI/ Skin Integrity GI: WNL, Soft, Flat, Non- tender BM: 10/12 x1 I/O: 1210/Not Noted Skin: WNL, Intact, Scar tissue on legs Bear: 17 Diet Order: Cardiac, NCS Estimated Energy Needs: (Obese , ABW) 0640-7383 kcals (20-25 kcals/ kg) 60-70g Pro (0.8-.10 g/kg) 2018-1418 ml (20-25ml/kg) Current Diet Order/ Nutrition Support Cardiac, NCS Pertinent Medications Maalox (PRN), Vitamin C, Dulcolax (PRN), Oscal with Vitamin D, Pepcid, Ferrous Sulfate, INS-SS, Glucotrol, MOM (PRN), Theragran Pertinent Labs POC Glucose (last 24 hours): 267, 241, 380, 204 09/22: Glucose 353, BUN/Cr 31/1 .2, GFR 47 Nutritional Hx/Data Height 5 ft 9 in Height (Calculated Centimeters) 175.3 Current Weight (lbs) 221 lb Weight (Calculated Kilograms) 100.2 Weight (Calculated Grams) 745941.9 [place] Body Weight 160 LB (72.73 kg) % [place] Body Weight 138 Body Mass Index (BMI) 32.6 Weight Status Obese GI Symptoms Last BM 10/12 x1 Skin Integrity/Comment: Skin: WNL, Intact, Scar tissue on legs Bear: 17 Current %PO Good (75-100%) Estimated Nutritional Goals BEE in Kcals: Adj wt of IBW Calories/Kcals/Kg 20-25 Kcals Calculated 3524-8238 Protein: Adj wt of IBW Protein g/k.8-1.0 Protein Calculated 60-70 Fluid: ml 8422-8931 ml (20-25ml/kg) Nutritional Problem 2. Problem Problem Obesity Etiology r/t consistent energy overconsumption Signs/Symptoms: aeb BMI >30 (32.64). 1. Problem Problem Altered nutrition related labs Etiology r/t endocrine dysfunction Signs/Symptoms: aeb Hs DM, labs (09/22) Glucose 353, POC Glucose (last 24 hours): 267, 241, 380, 204. Malnutrition Related to Morbid Obesity Malnutrition related to morbid obesity No Intervention/Recommendation Comments 1.Recommend adding CCHO 60gm to current diet Rx for improved glucose control. 2.Continue antihyperglycemic medications for glucose control per MD order. Expected Outcomes/Goals Expected Outcomes/Goals 1.PO intake to continue to meet >75% of estimated nutritional needs. 2.Monitor PO intake, wt, nutrition related labs to trend WNL, and skin integrity. 3.Gradual weight loss (0.5-1.0 LB/week) trending towards IBW preferred. 4.F/U as moderate risk in 3-5 days, 10/15-10/17
--- NOTE | 2019-10-17 14:33 | Progress Notes ---
DATE: 10/17/2019 SUBJECTIVE: The patient is currently in the hospital, still symptomatic, unruly, still can be irritable, really hard to understand what he is saying. Generally calmer. Psychotic symptoms seem to be less. He seems to be doing well with dose increases of the antipsychotic medications. Fair sleep and appetite, mostly withdrawn, keeps to self, still observed to be mumbling to self at times, redirectable, not combative. Medications were reviewed. Vitals were reviewed. Labs were reviewed. Nursing notes were reviewed. I evaluated him for any medication side effects. None noted. No EPS, no akathisia. Spoke with nursing staff, also at length. MENTAL STATUS EXAMINATION: Stated age. Fair eye contact, mumbling, hard to understand. Loud at times, poor impulse control. DIAGNOSIS: Unchanged, schizophrenia. PLAN: We will continue to incrementally increase dosing of antipsychotic medications. The patient remains impulsive, ongoing mood symptoms. JOB# [id number]
[2019-10-18] MEDS: INSULIN LISPRO SLIDING SCALE 100 UNITS/ML UNIT SUBQ SCH ×5 (06:48→21:08)
[2019-10-18] MEDS: Ferrous Sulfate 325 MG TAB PO SCH ×2 (09:33→17:28)
[2019-10-18] MEDS: Calcium Carb/Vit D 500 mg/200 U Tab PO SCH (09:33)
[2019-10-18] MEDS: Multivitamin Tab PO SCH (09:34)
--- NOTE | 2019-10-18 09:59 | Progress Notes ---
DATE: 10/18/2019 SUBJECTIVE: The patient was seen in his room. The patient appears to be guarded, easily gets frustrated, poor impulse control. Otherwise, the patient appears to be in no acute distress. OBJECTIVE: VITAL SIGNS: Temperature 97, heart rate 71, blood pressure 111/53, respirations 20, 97% on room air. HEENT: Head is atraumatic and normocephalic. Eyes: Bilateral conjunctivae are clear. Bilateral pupils equal, round, and reactive. NECK: Supple. No JVD. CARDIOVASCULAR: S1 and S2, without murmur. PULMONARY: Clear to auscultation. GASTROINTESTINAL: Soft and nontender without guarding. Positive bowel sounds. MUSCULOSKELETAL: No clubbing. No cyanosis noted. ASSESSMENT: 1. Schizophrenia. 2. Parkinson's disease. 3. Chronic obstructive pulmonary disease. 4. Diabetes. 5. Glaucoma. 6. Anemia. 7. Unsteady gait. PLAN: We will continue to keep the patient in inpatient psychiatric unit. We will follow up with the psychiatrist. We will monitor the patient's condition and behavior. We will put the patient on fall precaution and put the patient on aspiration precautions. Treatment plans were discussed with the patient's nurse. Treatment plans were discussed with Dr. Fletcher. JOB# [id number]
--- NOTE | 2019-10-18 21:51 | Progress Notes ---
DATE: 10/18/2019 IDENTIFYING DATA: A 73-year-old male presented ____ aggressive, agitated and history of schizophrenia. ____ Seroquel 12.5 b.i.d., 100 mg at nighttime. Upon approach, the patient is extremely angry. Reports that ____ here on Sunday for his hearing. He does not want to participate in anymore conversation beyond that. MENTAL STATUS EXAMINATION: Irritable, avoidant and suspicious. ASSESSMENT AND PLAN: The patient continues to find himself paranoid, tolerating the recent adjustments of medications. JOB# [id number]
[2019-10-19] MEDS: INSULIN LISPRO SLIDING SCALE 100 UNITS/ML UNIT SUBQ SCH ×4 (06:40→20:46)
[2019-10-19] MEDS: Calcium Carb/Vit D 500 mg/200 U Tab PO SCH (08:39)
[2019-10-19] MEDS: Ferrous Sulfate 325 MG TAB PO SCH ×2 (08:39→16:31)
[2019-10-19] MEDS: Multivitamin Tab PO SCH (08:40)
--- NOTE | 2019-10-19 13:34 | Progress Notes ---
DATE: SUBJECTIVE: Today on [id number] evaluation, he is angry, refusing to be interviewed, reporting that he will only attend his hearing on Sunday and is done with the conversation. MENTAL STATUS EXAMINATION: Avoiding, paranoid, refusing to be cooperative with the interview. ASSESSMENT AND PLAN: Chronic preoccupied, disorganized and refusing to be interviewed and only awaiting the [place] hearing on Sunday. [facility]# [id number]
--- NOTE | 2019-10-19 14:25 | Internal Medicine Prog Note ---
Internal Medicine Subjective - Subjective Patient is:: awake, verbal, interactive Per staff patient has:: no adverse event, no episodes of fall, tolerating meds Internal Medicine Objective - Results Recent Labs: Laboratory Last Values POC Glucose 124 MG/DL (70 - 105) H 10/19/19 06:13 - Physical Exam Vitals and I&O: Vital Signs Temp 98.6 F 10/19/19 14:02 Pulse 91 10/19/19 14:02 Resp 18 10/19/19 14:02 BP 123/68 10/19/19 14:02 Pulse Ox 100 10/19/19 14:02 Intake & Output 10/18/19 10/19/19 10/19/19 18:59 06:59 18:59 Intake Total 1200 240 Balance 1200 240 Intake: Oral 1200 240 Other: # Voids 4 1 # Bowel Movements 1 1 Active Medications: Current Medications Acetaminophen (Tylenol) 650 mg PO Q4H PRN PRN Reason: Pain (Mild 1-3) Stop: 12/07/19 16:46 Acetaminophen (Tylenol Extra Strength) 1,000 mg PO Q6H PRN PRN Reason: Pain (Moderate 4-6) Stop: 12/07/19 16:46 Last Admin: 10/12/19 01:51 Dose: 1,000 mg Hydrocodone Bitart/Acetaminophen ([place] 5mg/325mg) 1 tab PO Q6H PRN PRN Reason: Pain (Moderate 4-6) Stop: 12/07/19 17:49 Last Admin: 10/17/19 21:13 Dose: 1 tab Al Hydrox/Mg Hydrox/Simethicone (Maalox) 30 ml PO Q4HR PRN PRN Reason: GI DISTRESS Stop: 12/07/19 16:46 Amlodipine Besylate (Norvasc) 10 mg PO DAILY [facility] Stop: 12/08/19 08:59 Last Admin: 10/19/19 08:38 Dose: 10 mg Ascorbic Acid (Vitamin C) 500 mg PO DAILY [facility] Stop: 12/08/19 08:59 Last Admin: 10/19/19 08:39 Dose: 500 mg Aspirin (Ecotrin) 81 mg PO DAILY [facility] Stop: 12/08/19 08:59 Last Admin: 10/19/19 08:39 Dose: 81 mg Bisacodyl (Dulcolax 10 Mg Supp) 10 mg RC DAILY PRN PRN Reason: IF MOM IS INEFFECTIVE Stop: 12/07/19 17:49 Calcium/Vitamin D (Oscal W/Vitamin D) 1 tab PO DAILY [facility] Stop: 12/08/19 08:59 Last Admin: 10/19/19 08:39 Dose: Not Given Docusate Sodium (Colace) 250 mg PO BID [facility] Stop: 12/08/19 08:59 Last Admin: 10/19/19 08:39 Dose: 250 mg Famotidine (Pepcid) 20 mg PO BID [facility] Stop: 12/08/19 08:59 Last Admin: 10/19/19 08:39 Dose: 20 mg Ferrous Sulfate (Iron) 325 mg PO BID [facility] Stop: 12/08/19 08:59 Last Admin: 10/19/19 08:39 Dose: Not Given Folic Acid (Folate) 1 mg PO DAILY [facility] Stop: 12/08/19 08:59 Last Admin: 10/19/19 08:52 Dose: 1 mg Glipizide (Glucotrol) 5 mg PO QDAC [facility] Stop: 12/09/19 07:29 Last Admin: 10/19/19 06:39 Dose: 5 mg Hydralazine HCl (Apresoline) 50 mg PO Q8H [facility] Stop: 12/07/19 21:59 Last Admin: 10/19/19 06:46 Dose: 50 mg Ibuprofen (Motrin) 400 mg PO Q4H PRN PRN Reason: Pain (Severe 7-10) Stop: 12/07/19 16:46 Last Admin: 10/09/19 15:37 Dose: 400 mg Insulin Human Lispro (Humalog Insulin Sliding Scale) 0 units SUBQ ACHS [facility]; Protocol Stop: 12/07/19 20:59 Last Admin: 10/19/19 12:05 Dose: Not Given Latanoprost (Xalatan 0.005% Ophth Soln) 1 drop LEFT EYE HS [facility] Stop: 12/07/19 20:59 Last Admin: 10/18/19 20:47 Dose: Not Given Lisinopril (Zestril) 10 mg PO BID [facility] Stop: 12/08/19 08:59 Last Admin: 10/19/19 08:39 Dose: 10 mg Lorazepam (Ativan) 0.5 mg PO Q4HR PRN; Protocol PRN Reason: Anxiety Stop: 11/07/19 16:46 Last Admin: 10/18/19 22:42 Dose: 0.5 mg Magnesium Hydroxide (Milk Of Magnesia) 30 ml PO HS PRN PRN Reason: Constipation Metoprolol Tartrate (Lopressor) 25 mg PO BID [facility] Stop: 12/08/19 08:59 Last Admin: 10/19/19 08:40 Dose: 25 mg Multivitamins/Vitamin C (Theragran) 1 tab PO DAILY [facility] Stop: 12/08/19 08:59 Last Admin: 10/19/19 08:40 Dose: 1 tab Quetiapine Fumarate (Seroquel) 12.5 mg PO BID [facility]; Protocol Stop: 12/12/19 16:59 Last Admin: 10/19/19 08:42 Dose: 12.5 mg Quetiapine Fumarate (Seroquel) 100 mg PO HS [facility] Stop: 12/15/19 20:59 Last Admin: 10/18/19 20:47 Dose: 100 mg Zolpidem Tartrate (Ambien) 5 mg PO HS PRN PRN Reason: Insomnia Stop: 12/07/19 16:46 Last Admin: 10/18/19 20:48 Dose: 5 mg General: alert, NAD, other (paranoid) HEENT: NC/AT, PERRLA Neck: Supple Lungs: CTAB Cardiovascular: RRR, Normal S1, Normal S2 Abdomen: soft, non-tender, non-distended, positive bowel sound Extremities: excoriation Neurological: alert, disorganized Internal Medicine Assmt/Plan - Assessment Assessment: Schizophrenia Parkinson's disease COPD DM Anemia Glaucoma Unsteady gait - Plan Plan: Continue current treatment Fall and Safety precautions Psychiatry for psych management Continue to monitor VS, IO Pain as needed Continue to collaborate with interdisciplinary team. Nutritional Asmnt/Malnutr-PDOC - Dietary Evaluation Malnutrition Findings (Please click <Entered> for more info): Nutritional Asmnt/Malnutrition Start: 10/13/19 15: 19 Text: Status: Complete Freq: Protocol: Document 10/13/19 15:19 DAVID (Rec: 10/13/19 15:23 DAVID [id number]) Nutritional Asmnt/Malnutrition Patient General Information Nutritional Screening Moderate Risk Diagnosis Psychosis Pertinent Medical Hx/Surgical Hx Parkinsons Disease, COPD, DMT2, Anemia, Glaucoma, Schizophrenia Subjective Information Pt is a 73-year-old male admitted on 10/07 d/t increased agitation, yelling, aggressive behavior at nursing facilityPt is eating an estimated 77% of meals since admit date (x4 days) Per Meal/ Nutrition Activity Record. Dietary is currently providing an estimated 2000 kcals and 115 gm Pro, per Pt PO intake this is providing an estimated 1540 kcals and 90gm Pro to meet 96% kcal and 100+%. Pt has Glucotrol included in medication regimen but has refused it since admittance along with other medications. Recommend adding CCHO 60gm to current diet Rx for improved glucose control. Spoke with pt nurse Aurora concerning diet recommendation , Aurora stated the MD has been made aware of pt refusal to medications. Anthropometrics HT: 59 WT: 221 LB (100.45 kg) ABW: 175 LB (79.66 kg) BMI: 32.64 (Obese) GI/ Skin Integrity GI: WNL, Soft, Flat, Non- tender BM: 10/12 x1 I/O: 1210/Not Noted Skin: WNL, Intact, Scar tissue on legs Bear: 17 Diet Order: Cardiac, NCS Estimated Energy Needs: (Obese , ABW) 6355-0635 kcals (20-25 kcals/ kg) 60-70g Pro (0.8-.10 g/kg) 8580-1042 ml (20-25ml/kg) Current Diet Order/ Nutrition Support Cardiac, NCS Pertinent Medications Maalox (PRN), Vitamin C, Dulcolax (PRN), Oscal with Vitamin D, Pepcid, Ferrous Sulfate, INS-SS, Glucotrol, MOM (PRN), Theragran Pertinent Labs POC Glucose (last 24 hours): 267, 241, 380, 204 3: Glucose 353, BUN/Cr 31/1 .2, GFR 47 Nutritional Hx/Data Height 5 ft 9 in Height (Calculated Centimeters) 175.3 Current Weight (lbs) 221 lb Weight (Calculated Kilograms) 100.2 Weight (Calculated Grams) 702577.9 [place] Body Weight 160 LB (72.73 kg) % [place] Body Weight 138 Body Mass Index (BMI) 32.6 Weight Status Obese GI Symptoms Last BM 10/12 x1 Skin Integrity/Comment: Skin: WNL, Intact, Scar tissue on legs Bear: 17 Current %PO Good (75-100%) Estimated Nutritional Goals BEE in Kcals: Adj wt of IBW Calories/Kcals/Kg 20-25 Kcals Calculated 3310-5466 Protein: Adj wt of IBW Protein g/k.8-1.0 Protein Calculated 60-70 Fluid: ml 6765-6304 ml (20-25ml/kg) Nutritional Problem 2. Problem Problem Obesity Etiology r/t consistent energy overconsumption Signs/Symptoms: aeb BMI >30 (32.64). 1. Problem Problem Altered nutrition related labs Etiology r/t endocrine dysfunction Signs/Symptoms: aeb Hs DM, labs (09/22) Glucose 353, POC Glucose (last 24 hours): 267, 241, 380, 204. Malnutrition Related to Morbid Obesity Malnutrition related to morbid obesity No Intervention/Recommendation Comments 1.Recommend adding CCHO 60gm to current diet Rx for improved glucose control. 2.Continue antihyperglycemic medications for glucose control per MD order. Expected Outcomes/Goals Expected Outcomes/Goals 1.PO intake to continue to meet >75% of estimated nutritional needs. 2.Monitor PO intake, wt, nutrition related labs to trend WNL, and skin integrity. 3.Gradual weight loss (0.5-1.0 LB/week) trending towards IBW preferred. 4.F/U as moderate risk in 3-5 days, 10/15-10/17
[2019-10-20] MEDS: INSULIN LISPRO SLIDING SCALE 100 UNITS/ML UNIT SUBQ SCH ×5 (06:30→21:00)
[2019-10-20] MEDS: Calcium Carb/Vit D 500 mg/200 U Tab PO SCH (08:25)
[2019-10-20] MEDS: Multivitamin Tab PO SCH (08:25)
[2019-10-20] MEDS: Ferrous Sulfate 325 MG TAB PO SCH ×2 (08:25→16:30)
--- NOTE | 2019-10-20 13:37 | Progress Notes ---
DATE: 10/20/2019 SUBJECTIVE: A 73-year-old male was to have been discharged a few days prior. There were some delays in his discharge. Calm right now, cooperative, mildly tachycardic. Nursing staff are aware. They will sign this out to [facility] staff. Blood pressure 143/72, pulse of 112 with no complaints. No chest pain, still disoriented, mumbling to self, but likely at his baseline, much calmer. No SI. No HI. PLAN: I will discharge today. JOB# [id number]
[2019-10-21] MEDS: INSULIN LISPRO SLIDING SCALE 100 UNITS/ML UNIT SUBQ SCH ×4 (07:15→20:48)
[2019-10-21] MEDS: Ferrous Sulfate 325 MG TAB PO SCH ×2 (08:13→16:49)
[2019-10-21] MEDS: Calcium Carb/Vit D 500 mg/200 U Tab PO SCH (08:14)
[2019-10-21] MEDS: Multivitamin Tab PO SCH (08:14)
--- NOTE | 2019-10-21 10:27 | Discharge Summary ---
DATE OF DISCHARGE: 10/21/2019 HISTORY OF PRESENT ILLNESS: A 73-year-old male, currently in the hospital, was agitated, aggressive, unruly, could not be cared for at a lower level. Poor compliance. Nursing staff cannot control his behavior as he was agitated and aggressive when he got to the hospital, refusing treatment. Positional opposed to treatment. PAST PSYCHIATRIC HISTORY: Schizophrenia. SOCIAL HISTORY: Currently in a retirement. MENTAL STATUS EXAMINATION: Please see full psych eval. PROVISIONAL DIAGNOSIS: Schizophrenia. MEDICAL: Please see full H and P. HOSPITAL COURSE: After initial assessment, the patient was started on medications. Medications were adjusted, titrated, Seroquel increased. Over hospital course, the patient improved, mood improved, affect improved. Vital signs normalized and stabilized. No side effects. Normalization of sleep and appetite, much calmer on exam. Tolerant of treatment. CONDITION UPON DISCHARGE: Improved, calm, still mumbling, still irritable. No SI, no HI, no overt psychotic symptoms. Denying any voices. No paranoias, no agitation. DISCHARGE DIAGNOSIS: Schizophrenia. PROGNOSIS: The patient follows up with retirement and continues to take his medications. Prognosis will improve, otherwise guarded. [facility]# [id number]
--- NOTE | 2019-10-21 13:50 | Internal Medicine Prog Note ---
Internal Medicine Subjective - Subjective Service Date: 10/21/19 Patient is:: awake, verbal, interactive Per staff patient has:: no adverse event, no episodes of fall, tolerating meds Internal Medicine Objective - Results Recent Labs: Laboratory Last Values POC Glucose 122 MG/DL (70 - 105) H 10/21/19 11:47 - Physical Exam Vitals and I&O: Vital Signs Temp 98.0 F 10/21/19 05:57 Pulse 84 10/21/19 08:14 Resp 19 10/21/19 05:57 BP 113/72 10/21/19 08:14 Pulse Ox 100 10/21/19 05:57 Intake & Output 10/20/19 10/21/19 10/21/19 18:59 06:59 18:59 Intake Total 1200 360 Output Total 1 Balance 1200 359 Intake: Oral 1200 360 Output: Urine/Stool Mix 1 Other: # Voids 2 2 # Bowel Movements 1 1 Active Medications: Current Medications Acetaminophen (Tylenol) 650 mg PO Q4H PRN PRN Reason: Pain (Mild 1-3) Stop: 12/07/19 16:46 Acetaminophen (Tylenol Extra Strength) 1,000 mg PO Q6H PRN PRN Reason: Pain (Moderate 4-6) Stop: 12/07/19 16:46 Last Admin: 10/12/19 01:51 Dose: 1,000 mg Hydrocodone Bitart/Acetaminophen ([place] 5mg/325mg) 1 tab PO Q6H PRN PRN Reason: Pain (Moderate 4-6) Stop: 12/07/19 17:49 Last Admin: 10/17/19 21:13 Dose: 1 tab Al Hydrox/Mg Hydrox/Simethicone (Maalox) 30 ml PO Q4HR PRN PRN Reason: GI DISTRESS Stop: 12/07/19 16:46 Amlodipine Besylate (Norvasc) 10 mg PO DAILY [facility] Stop: 12/08/19 08:59 Last Admin: 10/21/19 08:14 Dose: 10 mg Ascorbic Acid (Vitamin C) 500 mg PO DAILY VAN Stop: 12/08/19 08:59 Last Admin: 10/21/19 08:14 Dose: 500 mg Aspirin (Ecotrin) 81 mg PO DAILY VAN Stop: 12/08/19 08:59 Last Admin: 10/21/19 08:14 Dose: 81 mg Bisacodyl (Dulcolax 10 Mg Supp) 10 mg RC DAILY PRN PRN Reason: IF MOM IS INEFFECTIVE Stop: 12/07/19 17:49 Calcium/Vitamin D (Oscal W/Vitamin D) 1 tab PO DAILY [facility] Stop: 12/08/19 08:59 Last Admin: 10/21/19 08:14 Dose: 1 tab Docusate Sodium (Colace) 250 mg PO BID [facility] Stop: 12/08/19 08:59 Last Admin: 10/21/19 08:14 Dose: 250 mg Famotidine (Pepcid) 20 mg PO BID [facility] Stop: 12/08/19 08:59 Last Admin: 10/21/19 08:13 Dose: 20 mg Ferrous Sulfate (Iron) 325 mg PO BID [facility] Stop: 12/08/19 08:59 Last Admin: 10/21/19 08:13 Dose: 325 mg Folic Acid (Folate) 1 mg PO DAILY [facility] Stop: 12/08/19 08:59 Last Admin: 10/21/19 08:13 Dose: 1 mg Glipizide (Glucotrol) 5 mg PO QDAC [facility] Stop: 12/09/19 07:29 Last Admin: 10/21/19 06:52 Dose: 5 mg Hydralazine HCl (Apresoline) 50 mg PO Q8H [facility] Stop: 12/07/19 21:59 Last Admin: 10/21/19 06:49 Dose: Not Given Ibuprofen (Motrin) 400 mg PO Q4H PRN PRN Reason: Pain (Severe 7-10) Stop: 12/07/19 16:46 Last Admin: 10/09/19 15:37 Dose: 400 mg Insulin Human Lispro (Humalog Insulin Sliding Scale) 0 units SUBQ ACHS [facility]; Protocol Stop: 12/07/19 20:59 Last Admin: 10/21/19 11:54 Dose: Not Given Latanoprost (Xalatan 0.005% Ophth Soln) 1 drop LEFT EYE HS [facility] Stop: 12/07/19 20:59 Last Admin: 10/20/19 20:33 Dose: Not Given Lisinopril (Zestril) 10 mg PO BID [facility] Stop: 12/08/19 08:59 Last Admin: 10/21/19 08:14 Dose: 10 mg Lorazepam (Ativan) 0.5 mg PO Q4HR PRN; Protocol PRN Reason: Anxiety Stop: 11/07/19 16:46 Last Admin: 10/20/19 20:33 Dose: 0.5 mg Magnesium Hydroxide (Milk Of Magnesia) 30 ml PO HS PRN PRN Reason: Constipation Metoprolol Tartrate (Lopressor) 25 mg PO BID VAN Stop: 12/08/19 08:59 Last Admin: 10/21/19 08:12 Dose: 25 mg Multivitamins/Vitamin C (Theragran) 1 tab PO DAILY VAN Stop: 12/08/19 08:59 Last Admin: 10/21/19 08:14 Dose: 1 tab Quetiapine Fumarate (Seroquel) 12.5 mg PO BID VAN; Protocol Stop: 12/12/19 16:59 Last Admin: 10/21/19 08:13 Dose: 12.5 mg Quetiapine Fumarate (Seroquel) 100 mg PO HS VAN Stop: 12/19/19 20:59 Last Admin: 10/20/19 20:33 Dose: 100 mg Zolpidem Tartrate (Ambien) 5 mg PO HS PRN PRN Reason: Insomnia Stop: 12/07/19 16:46 Last Admin: 10/19/19 20:46 Dose: 5 mg General: alert, NAD, other (paranoid) HEENT: NC/AT, PERRLA Neck: Supple Lungs: CTAB Cardiovascular: RRR, Normal S1, Normal S2 Abdomen: soft, non-tender, non-distended, positive bowel sound Extremities: excoriation Neurological: alert, disorganized Internal Medicine Assmt/Plan - Assessment Assessment: psychosis PARKINSON'S COPD DM2 ANEMIA SCHIZOPHRENIA GLAUCOMA - Plan Plan: continue home medications monitor bp closely accucheck with sliding scale fall precautions Nutritional Asmnt/Malnutr-PDOC - Dietary Evaluation Malnutrition Findings (Please click <Entered> for more info): Nutritional Asmnt/Malnutrition Start: 10/13/19 15: 19 Text: Status: Complete Freq: Protocol: Document 10/13/19 15:19 DAVID (Rec: 10/13/19 15:23 DAVID [email or web address] [id number]) Nutritional Asmnt/Malnutrition Patient General Information Nutritional Screening Moderate Risk Diagnosis Psychosis Pertinent Medical Hx/Surgical Hx Parkinsons Disease, COPD, DMT2, Anemia, Glaucoma, Schizophrenia Subjective Information Pt is a 73-year-old male admitted on 10/07 d/t increased agitation, yelling, aggressive behavior at nursing facilityPt is eating an estimated 77% of meals since admit date (x4 days) Per Meal/ Nutrition Activity Record. Dietary is currently providing an estimated 2000 kcals and 115 gm Pro, per Pt PO intake this is providing an estimated 1540 kcals and 90gm Pro to meet 96% kcal and 100+%. Pt has Glucotrol included in medication regimen but has refused it since admittance along with other medications. Recommend adding CCHO 60gm to current diet Rx for improved glucose control. Spoke with pt nurse Aurora concerning diet recommendation , Aurora stated the MD has been made aware of pt refusal to medications. Anthropometrics HT: 59 WT: 221 LB (100.45 kg) ABW: 175 LB (79.66 kg) BMI: 32.64 (Obese) GI/ Skin Integrity GI: WNL, Soft, Flat, Non- tender BM: 10/12 x1 I/O: 1210/Not Noted Skin: WNL, Intact, Scar tissue on legs Bear: 17 Diet Order: Cardiac, NCS Estimated Energy Needs: (Obese , ABW) 4770-3980 kcals (20-25 kcals/ kg) 60-70g Pro (0.8-.10 g/kg) 3227-3948 ml (20-25ml/kg) Current Diet Order/ Nutrition Support Cardiac, NCS Pertinent Medications Maalox (PRN), Vitamin C, Dulcolax (PRN), Oscal with Vitamin D, Pepcid, Ferrous Sulfate, INS-SS, Glucotrol, MOM (PRN), Theragran Pertinent Labs POC Glucose (last 24 hours): 267, 241, 380, 204 3: Glucose 353, BUN/Cr 31/1 .2, GFR 47 Nutritional Hx/Data Height 5 ft 9 in Height (Calculated Centimeters) 175.3 Current Weight (lbs) 221 lb Weight (Calculated Kilograms) 100.2 Weight (Calculated Grams) 725510.9 [place] Body Weight 160 LB (72.73 kg) % [place] Body Weight 138 Body Mass Index (BMI) 32.6 Weight Status Obese GI Symptoms Last BM 10/12 x1 Skin Integrity/Comment: Skin: WNL, Intact, Scar tissue on legs Bear: 17 Current %PO Good (75-100%) Estimated Nutritional Goals BEE in Kcals: Adj wt of IBW Calories/Kcals/Kg 20-25 Kcals Calculated 8420-2803 Protein: Adj wt of IBW Protein g/k.8-1.0 Protein Calculated 60-70 Fluid: ml 4223-4494 ml (20-25ml/kg) Nutritional Problem 2. Problem Problem Obesity Etiology r/t consistent energy overconsumption Signs/Symptoms: aeb BMI >30 (32.64). 1. Problem Problem Altered nutrition related labs Etiology r/t endocrine dysfunction Signs/Symptoms: aeb Hs DM, labs (09/22) Glucose 353, POC Glucose (last 24 hours): 267, 241, 380, 204. Malnutrition Related to Morbid Obesity Malnutrition related to morbid obesity No Intervention/Recommendation Comments 1.Recommend adding CCHO 60gm to current diet Rx for improved glucose control. 2.Continue antihyperglycemic medications for glucose control per MD order. Expected Outcomes/Goals Expected Outcomes/Goals 1.PO intake to continue to meet >75% of estimated nutritional needs. 2.Monitor PO intake, wt, nutrition related labs to trend WNL, and skin integrity. 3.Gradual weight loss (0.5-1.0 LB/week) trending towards IBW preferred. 4.F/U as moderate risk in 3-5 days, 10/15-10/17
[2019-10-22] MEDS: INSULIN LISPRO SLIDING SCALE 100 UNITS/ML UNIT SUBQ SCH ×4 (06:38→20:41)
[2019-10-22] MEDS: Multivitamin Tab PO SCH (08:28)
[2019-10-22] MEDS: Calcium Carb/Vit D 500 mg/200 U Tab PO SCH (08:28)
[2019-10-22] MEDS: Ferrous Sulfate 325 MG TAB PO SCH ×2 (08:29→16:51)
--- NOTE | 2019-10-22 10:14 | Internal Medicine Prog Note ---
Internal Medicine Subjective - Subjective Service Date: 10/22/19 Patient is:: awake, verbal, interactive Per staff patient has:: no adverse event, no episodes of fall, tolerating meds Internal Medicine Objective - Results Recent Labs: Laboratory Last Values POC Glucose 116 MG/DL (70 - 105) H 10/22/19 05:51 - Physical Exam Vitals and I&O: Vital Signs Temp 97.7 F 10/22/19 05:54 Pulse 82 10/22/19 09:19 Resp 17 10/22/19 08:00 BP 130/65 10/22/19 09:19 Pulse Ox 97 10/22/19 05:54 Intake & Output 10/21/19 10/22/19 10/22/19 18:59 06:59 18:59 Intake Total 1200 360 Output Total 1 Balance 1200 359 Intake: Oral 1200 360 Output: Urine/Stool Mix 1 Other: # Voids 4 1 # Bowel Movements 1 1 Active Medications: Current Medications Acetaminophen (Tylenol) 650 mg PO Q4H PRN PRN Reason: Pain (Mild 1-3) Stop: 12/07/19 16:46 Acetaminophen (Tylenol Extra Strength) 1,000 mg PO Q6H PRN PRN Reason: Pain (Moderate 4-6) Stop: 12/07/19 16:46 Last Admin: 10/12/19 01:51 Dose: 1,000 mg Hydrocodone Bitart/Acetaminophen ([place] 5mg/325mg) 1 tab PO Q6H PRN PRN Reason: Pain (Moderate 4-6) Stop: 12/07/19 17:49 Last Admin: 10/17/19 21:13 Dose: 1 tab Al Hydrox/Mg Hydrox/Simethicone (Maalox) 30 ml PO Q4HR PRN PRN Reason: GI DISTRESS Stop: 12/07/19 16:46 Amlodipine Besylate (Norvasc) 10 mg PO DAILY [facility]AN Stop: 12/08/19 08:59 Last Admin: 10/22/19 08:30 Dose: 10 mg Ascorbic Acid (Vitamin C) 500 mg PO DAILY VAN Stop: 12/08/19 08:59 Last Admin: 10/22/19 08:28 Dose: 500 mg Aspirin (Ecotrin) 81 mg PO DAILY [facility]AN Stop: 12/08/19 08:59 Last Admin: 10/22/19 08:29 Dose: 81 mg Bisacodyl (Dulcolax 10 Mg Supp) 10 mg RC DAILY PRN PRN Reason: IF MOM IS INEFFECTIVE Stop: 12/07/19 17:49 Calcium/Vitamin D (Oscal W/Vitamin D) 1 tab PO DAILY [facility] Stop: 12/08/19 08:59 Last Admin: 10/22/19 08:28 Dose: 1 tab Docusate Sodium (Colace) 250 mg PO BID [facility] Stop: 12/08/19 08:59 Last Admin: 10/22/19 08:28 Dose: 250 mg Famotidine (Pepcid) 20 mg PO BID [facility] Stop: 12/08/19 08:59 Last Admin: 10/22/19 08:29 Dose: 20 mg Ferrous Sulfate (Iron) 325 mg PO BID [facility] Stop: 12/08/19 08:59 Last Admin: 10/22/19 08:29 Dose: 325 mg Folic Acid (Folate) 1 mg PO DAILY [facility] Stop: 12/08/19 08:59 Last Admin: 10/22/19 08:29 Dose: 1 mg Glipizide (Glucotrol) 5 mg PO QDAC [facility] Stop: 12/09/19 07:29 Last Admin: 10/22/19 06:51 Dose: 5 mg Hydralazine HCl (Apresoline) 50 mg PO Q8H [facility] Stop: 12/07/19 21:59 Last Admin: 10/22/19 06:38 Dose: 50 mg Ibuprofen (Motrin) 400 mg PO Q4H PRN PRN Reason: Pain (Severe 7-10) Stop: 12/07/19 16:46 Last Admin: 10/09/19 15:37 Dose: 400 mg Insulin Human Lispro (Humalog Insulin Sliding Scale) 0 units SUBQ ACHS [facility]; Protocol Stop: 12/07/19 20:59 Last Admin: 10/22/19 06:38 Dose: Not Given Latanoprost (Xalatan 0.005% Ophth Soln) 1 drop LEFT EYE HS [facility] Stop: 12/07/19 20:59 Last Admin: 10/21/19 20:14 Dose: 1 drop Lisinopril (Zestril) 10 mg PO BID [facility] Stop: 12/08/19 08:59 Last Admin: 10/22/19 08:30 Dose: 10 mg Lorazepam (Ativan) 0.5 mg PO Q4HR PRN; Protocol PRN Reason: Anxiety Stop: 11/07/19 16:46 Last Admin: 10/21/19 19:41 Dose: 0.5 mg Magnesium Hydroxide (Milk Of Magnesia) 30 ml PO HS PRN PRN Reason: Constipation Metoprolol Tartrate (Lopressor) 25 mg PO BID [facility] Stop: 12/08/19 08:59 Last Admin: 10/22/19 09:19 Dose: Not Given Multivitamins/Vitamin C (Theragran) 1 tab PO DAILY [facility] Stop: 12/08/19 08:59 Last Admin: 10/22/19 08:28 Dose: 1 tab Quetiapine Fumarate (Seroquel) 12.5 mg PO BID [facility]; Protocol Stop: 12/12/19 16:59 Last Admin: 10/22/19 08:29 Dose: 12.5 mg Quetiapine Fumarate (Seroquel) 100 mg PO HS [facility] Stop: 12/19/19 20:59 Last Admin: 10/21/19 20:14 Dose: 100 mg Zolpidem Tartrate (Ambien) 5 mg PO HS PRN PRN Reason: Insomnia Stop: 12/07/19 16:46 Last Admin: 10/21/19 20:14 Dose: 5 mg General: alert, NAD, other (paranoid) HEENT: NC/AT, PERRLA Neck: Supple Lungs: CTAB Cardiovascular: RRR, Normal S1, Normal S2 Abdomen: soft, non-tender, non-distended, positive bowel sound Extremities: excoriation Neurological: alert, disorganized Internal Medicine Assmt/Plan - Assessment Assessment: psychosis PARKINSON'S COPD DM2 ANEMIA SCHIZOPHRENIA GLAUCOMA - Plan Plan: continue home medications monitor bp closely accucheck with sliding scale fall precautions Nutritional Asmnt/Malnutr-PDOC - Dietary Evaluation Malnutrition Findings (Please click <Entered> for more info): Nutritional Asmnt/Malnutrition Start: 10/13/19 15: 19 Text: Status: Complete Freq: Protocol: Document 10/13/19 15:19 DAVID (Rec: 10/13/19 15:23 DAVID [id number]) Nutritional Asmnt/Malnutrition Patient General Information Nutritional Screening Moderate Risk Diagnosis Psychosis Pertinent Medical Hx/Surgical Hx Parkinsons Disease, COPD, DMT2, Anemia, Glaucoma, Schizophrenia Subjective Information Pt is a 73-year-old male admitted on 10/07 d/t increased agitation, yelling, aggressive behavior at nursing facilityPt is eating an estimated 77% of meals since admit date (x4 days) Per Meal/ Nutrition Activity Record. Dietary is currently providing an estimated 2000 kcals and 115 gm Pro, per Pt PO intake this is providing an estimated 1540 kcals and 90gm Pro to meet 96% kcal and 100+%. Pt has Glucotrol included in medication regimen but has refused it since admittance along with other medications. Recommend adding CCHO 60gm to current diet Rx for improved glucose control. Spoke with pt nurse Aurora concerning diet recommendation , Aurora stated the MD has been made aware of pt refusal to medications. Anthropometrics HT: 59 WT: 221 LB (100.45 kg) ABW: 175 LB (79.66 kg) BMI: 32.64 (Obese) GI/ Skin Integrity GI: WNL, Soft, Flat, Non- tender BM: 10/12 x1 I/O: 1210/Not Noted Skin: WNL, Intact, Scar tissue on legs Bear: 17 Diet Order: Cardiac, NCS Estimated Energy Needs: (Obese , ABW) 7572-7620 kcals (20-25 kcals/ kg) 60-70g Pro (0.8-.10 g/kg) 5100-3308 ml (20-25ml/kg) Current Diet Order/ Nutrition Support Cardiac, NCS Pertinent Medications Maalox (PRN), Vitamin C, Dulcolax (PRN), Oscal with Vitamin D, Pepcid, Ferrous Sulfate, INS-SS, Glucotrol, MOM (PRN), Theragran Pertinent Labs POC Glucose (last 24 hours): 267, 241, 380, 204 3: Glucose 353, BUN/Cr 31/1 .2, GFR 47 Nutritional Hx/Data Height 5 ft 9 in Height (Calculated Centimeters) 175.3 Current Weight (lbs) 221 lb Weight (Calculated Kilograms) 100.2 Weight (Calculated Grams) 827900.9 [place] Body Weight 160 LB (72.73 kg) % [place] Body Weight 138 Body Mass Index (BMI) 32.6 Weight Status Obese GI Symptoms Last BM 10/12 x1 Skin Integrity/Comment: Skin: WNL, Intact, Scar tissue on legs Bear: 17 Current %PO Good (75-100%) Estimated Nutritional Goals BEE in Kcals: Adj wt of IBW Calories/Kcals/Kg 20-25 Kcals Calculated 9628-3542 Protein: Adj wt of IBW Protein g/k.8-1.0 Protein Calculated 60-70 Fluid: ml 8987-0907 ml (20-25ml/kg) Nutritional Problem 2. Problem Problem Obesity Etiology r/t consistent energy overconsumption Signs/Symptoms: aeb BMI >30 (32.64). 1. Problem Problem Altered nutrition related labs Etiology r/t endocrine dysfunction Signs/Symptoms: aeb Hs DM, labs (09/22) Glucose 353, POC Glucose (last 24 hours): 267, 241, 380, 204. Malnutrition Related to Morbid Obesity Malnutrition related to morbid obesity No Intervention/Recommendation Comments 1.Recommend adding CCHO 60gm to current diet Rx for improved glucose control. 2.Continue antihyperglycemic medications for glucose control per MD order. Expected Outcomes/Goals Expected Outcomes/Goals 1.PO intake to continue to meet >75% of estimated nutritional needs. 2.Monitor PO intake, wt, nutrition related labs to trend WNL, and skin integrity. 3.Gradual weight loss (0.5-1.0 LB/week) trending towards IBW preferred. 4.F/U as moderate risk in 3-5 days, 10/15-10/17
--- NOTE | 2019-10-22 16:01 | Progress Notes ---
DATE: 10/22/2019 SUBJECTIVE: A 73-year-old -[place] male ____, but the facility wants him to be checked for COVID-19, not once, but twice; loud, yelling, very particular about the medications, demanding at times, yelling in the day room area, but he is redirectable. No emergency medications. Fair sleep and appetite, seems to be more amenable to treatment. We are attempting to get him back over to [facility], but apparently needs COVID testing two times with negative results to go back there. Cannot take care of himself. No real alternative placements. Medications were reviewed. Labs were reviewed. Vitals were reviewed. Blood pressure 130/65. Evaluated for any medication side effects, none noted. Pulse of 82. Stated age. Fair eye contact, in a wheelchair, loud, yelling, mumbling to self, talking nonsense. DIAGNOSIS: Schizophrenia. PLAN: We will attempt to check him for COVID-19, monitor closely. Continue to redirect. JOB# [id number]
[2019-10-23] MEDS: INSULIN LISPRO SLIDING SCALE 100 UNITS/ML UNIT SUBQ SCH ×4 (06:51→20:24)
[2019-10-23] MEDS: Multivitamin Tab PO SCH (09:41)
[2019-10-23] MEDS: Calcium Carb/Vit D 500 mg/200 U Tab PO SCH (09:44)
[2019-10-23] MEDS: Ferrous Sulfate 325 MG TAB PO SCH ×3 (09:44→17:20)
--- NOTE | 2019-10-23 10:18 | Internal Medicine Prog Note ---
Internal Medicine Subjective - Subjective Service Date: 10/23/19 Patient is:: awake, verbal, interactive Per staff patient has:: no adverse event, no episodes of fall, tolerating meds Internal Medicine Objective - Results Recent Labs: Laboratory Last Values POC Glucose 169 MG/DL (70 - 105) H 10/22/19 16:14 - Physical Exam Vitals and I&O: Vital Signs Temp 98.4 F 10/23/19 06:05 Pulse 115 10/23/19 09:45 Resp 20 10/23/19 06:05 BP 137/73 10/23/19 09:45 Pulse Ox 98 10/23/19 06:05 Intake & Output 10/22/19 10/23/19 10/23/19 18:59 06:59 18:59 Intake Total 1200 240 Balance 1200 240 Intake: Oral 1200 240 Other: # Voids 2 # Bowel Movements 1 0 Active Medications: Current Medications Acetaminophen (Tylenol) 650 mg PO Q4H PRN PRN Reason: Pain (Mild 1-3) Stop: 12/07/19 16:46 Acetaminophen (Tylenol Extra Strength) 1,000 mg PO Q6H PRN PRN Reason: Pain (Moderate 4-6) Stop: 12/07/19 16:46 Last Admin: 10/12/19 01:51 Dose: 1,000 mg Hydrocodone Bitart/Acetaminophen ([place] 5mg/325mg) 1 tab PO Q6H PRN PRN Reason: Pain (Moderate 4-6) Stop: 12/07/19 17:49 Last Admin: 10/17/19 21:13 Dose: 1 tab Al Hydrox/Mg Hydrox/Simethicone (Maalox) 30 ml PO Q4HR PRN PRN Reason: GI DISTRESS Stop: 12/07/19 16:46 Amlodipine Besylate (Norvasc) 10 mg PO DAILY [facility] Stop: 12/08/19 08:59 Last Admin: 10/23/19 09:42 Dose: 10 mg Ascorbic Acid (Vitamin C) 500 mg PO DAILY [facility] Stop: 12/08/19 08:59 Last Admin: 10/23/19 09:43 Dose: 500 mg Aspirin (Ecotrin) 81 mg PO DAILY [facility] Stop: 12/08/19 08:59 Last Admin: 10/23/19 09:47 Dose: 81 mg Bisacodyl (Dulcolax 10 Mg Supp) 10 mg RC DAILY PRN PRN Reason: IF MOM IS INEFFECTIVE Stop: 12/07/19 17:49 Calcium/Vitamin D (Oscal W/Vitamin D) 1 tab PO DAILY [facility] Stop: 12/08/19 08:59 Last Admin: 10/23/19 09:44 Dose: 1 tab Docusate Sodium (Colace) 250 mg PO BID [facility] Stop: 12/08/19 08:59 Last Admin: 10/23/19 09:43 Dose: 250 mg Famotidine (Pepcid) 20 mg PO BID [facility] Stop: 12/08/19 08:59 Last Admin: 10/23/19 09:47 Dose: 20 mg Ferrous Sulfate (Iron) 325 mg PO BID [facility] Stop: 12/08/19 08:59 Last Admin: 10/23/19 09:44 Dose: 325 mg Folic Acid (Folate) 1 mg PO DAILY [facility] Stop: 12/08/19 08:59 Last Admin: 10/23/19 09:44 Dose: 1 mg Glipizide (Glucotrol) 5 mg PO QDAC [facility] Stop: 12/09/19 07:29 Last Admin: 10/23/19 06:50 Dose: 5 mg Hydralazine HCl (Apresoline) 50 mg PO Q8H [facility] Stop: 12/07/19 21:59 Last Admin: 10/23/19 06:42 Dose: 50 mg Ibuprofen (Motrin) 400 mg PO Q4H PRN PRN Reason: Pain (Severe 7-10) Stop: 12/07/19 16:46 Last Admin: 10/09/19 15:37 Dose: 400 mg Insulin Human Lispro (Humalog Insulin Sliding Scale) 0 units SUBQ ACHS [facility]; Protocol Stop: 12/07/19 20:59 Last Admin: 10/23/19 06:51 Dose: Not Given Latanoprost (Xalatan 0.005% Ophth Soln) 1 drop LEFT EYE HS [facility] Stop: 12/07/19 20:59 Last Admin: 10/22/19 20:40 Dose: Not Given Lisinopril (Zestril) 10 mg PO BID [facility] Stop: 12/08/19 08:59 Last Admin: 10/23/19 09:45 Dose: 10 mg Lorazepam (Ativan) 0.5 mg PO Q4HR PRN; Protocol PRN Reason: Anxiety Stop: 11/07/19 16:46 Last Admin: 10/22/19 14:17 Dose: 0.5 mg Magnesium Hydroxide (Milk Of Magnesia) 30 ml PO HS PRN PRN Reason: Constipation Metoprolol Tartrate (Lopressor) 25 mg PO BID [facility] Stop: 12/08/19 08:59 Last Admin: 10/23/19 09:43 Dose: 25 mg Multivitamins/Vitamin C (Theragran) 1 tab PO DAILY [facility] Stop: 12/08/19 08:59 Last Admin: 10/23/19 09:41 Dose: 1 tab Quetiapine Fumarate (Seroquel) 12.5 mg PO BID [facility]; Protocol Stop: 12/12/19 16:59 Last Admin: 10/23/19 09:45 Dose: 12.5 mg Quetiapine Fumarate (Seroquel) 100 mg PO HS [facility] Stop: 12/19/19 20:59 Last Admin: 10/22/19 20:40 Dose: 100 mg Zolpidem Tartrate (Ambien) 5 mg PO HS PRN PRN Reason: Insomnia Stop: 12/07/19 16:46 Last Admin: 10/22/19 20:40 Dose: 5 mg General: alert, NAD, other (paranoid) HEENT: NC/AT, PERRLA Neck: Supple Lungs: CTAB Cardiovascular: RRR, Normal S1, Normal S2 Abdomen: soft, non-tender, non-distended, positive bowel sound Extremities: excoriation Neurological: alert, disorganized Internal Medicine Assmt/Plan - Assessment Assessment: psychosis PARKINSON'S COPD DM2 ANEMIA SCHIZOPHRENIA GLAUCOMA - Plan Plan: continue home medications monitor bp closely accucheck with sliding scale fall precautions Nutritional Asmnt/Malnutr-PDOC - Dietary Evaluation Malnutrition Findings (Please click <Entered> for more info): Nutritional Asmnt/Malnutrition Start: 10/13/19 15: 19 Text: Status: Complete Freq: Protocol: Document 10/13/19 15:19 DAVID (Rec: 10/13/19 15:23 [id number] [id number]) Nutritional Asmnt/Malnutrition Patient General Information Nutritional Screening Moderate Risk Diagnosis Psychosis Pertinent Medical Hx/Surgical Hx Parkinsons Disease, COPD, DMT2, Anemia, Glaucoma, Schizophrenia Subjective Information Pt is a 73-year-old male admitted on 10/07 d/t increased agitation, yelling, aggressive behavior at nursing facilityPt is eating an estimated 77% of meals since admit date (x4 days) Per Meal/ Nutrition Activity Record. Dietary is currently providing an estimated 2000 kcals and 115 gm Pro, per Pt PO intake this is providing an estimated 1540 kcals and 90gm Pro to meet 96% kcal and 100+%. Pt has Glucotrol included in medication regimen but has refused it since admittance along with other medications. Recommend adding CCHO 60gm to current diet Rx for improved glucose control. Spoke with pt nurse Aurora concerning diet recommendation , Aurora stated the MD has been made aware of pt refusal to medications. Anthropometrics HT: 59 WT: 221 LB (100.45 kg) ABW: 175 LB (79.66 kg) BMI: 32.64 (Obese) GI/ Skin Integrity GI: WNL, Soft, Flat, Non- tender BM: 10/12 x1 I/O: 1210/Not Noted Skin: WNL, Intact, Scar tissue on legs Bear: 17 Diet Order: Cardiac, NCS Estimated Energy Needs: (Obese , ABW) 3490-7593 kcals (20-25 kcals/ kg) 60-70g Pro (0.8-.10 g/kg) 3701-1006 ml (20-25ml/kg) Current Diet Order/ Nutrition Support Cardiac, NCS Pertinent Medications Maalox (PRN), Vitamin C, Dulcolax (PRN), Oscal with Vitamin D, Pepcid, Ferrous Sulfate, INS-SS, Glucotrol, MOM (PRN), Theragran Pertinent Labs POC Glucose (last 24 hours): 267, 241, 380, 204 09/22: Glucose 353, BUN/Cr 31/1 .2, GFR 47 Nutritional Hx/Data Height 5 ft 9 in Height (Calculated Centimeters) 175.3 Current Weight (lbs) 221 lb Weight (Calculated Kilograms) 100.2 Weight (Calculated Grams) 831025.9 [place] Body Weight 160 LB (72.73 kg) % [place] Body Weight 138 Body Mass Index (BMI) 32.6 Weight Status Obese GI Symptoms Last BM 10/12 x1 Skin Integrity/Comment: Skin: WNL, Intact, Scar tissue on legs Bear: 17 Current %PO Good (75-100%) Estimated Nutritional Goals BEE in Kcals: Adj wt of IBW Calories/Kcals/Kg 20-25 Kcals Calculated 1849-1281 Protein: Adj wt of IBW Protein g/k.8-1.0 Protein Calculated 60-70 Fluid: ml 8753-8660 ml (20-25ml/kg) Nutritional Problem 2. Problem Problem Obesity Etiology r/t consistent energy overconsumption Signs/Symptoms: aeb BMI >30 (32.64). 1. Problem Problem Altered nutrition related labs Etiology r/t endocrine dysfunction Signs/Symptoms: aeb Hs DM, labs (09/22) Glucose 353, POC Glucose (last 24 hours): 267, 241, 380, 204. Malnutrition Related to Morbid Obesity Malnutrition related to morbid obesity No Intervention/Recommendation Comments 1.Recommend adding CCHO 60gm to current diet Rx for improved glucose control. 2.Continue antihyperglycemic medications for glucose control per MD order. Expected Outcomes/Goals Expected Outcomes/Goals 1.PO intake to continue to meet >75% of estimated nutritional needs. 2.Monitor PO intake, wt, nutrition related labs to trend WNL, and skin integrity. 3.Gradual weight loss (0.5-1.0 LB/week) trending towards IBW preferred. 4.F/U as moderate risk in 3-5 days, 10/15-10/17
--- NOTE | 2019-10-23 12:10 | Progress Notes ---
DATE: 10/23/2019 SUBJECTIVE: A 73-year-old male. Poor orientation, mostly withdrawn, keeps to self, preoccupied, paranoid, still unruly, loud at times, likely at his baseline, generally calmer, more cooperative, trying to get him back to the [facility]. The patient also with some tachycardic symptoms. Staff aware. No chest pain, no complaints, unclear if it is a medication side effect. No chest pain. Denying any chest pain or discomfort. Medications were reviewed. Vitals were reviewed. Labs were reviewed. Pulse at 115. MENTAL STATUS EXAMINATION: Stated age, still rambling, talking nonsense, ongoing disorientation, calmer. DIAGNOSIS: Schizophrenia. PLAN: We will continue inpatient monitoring, lower dose of Seroquel. [facility]# [id number]
[2019-10-24] MEDS: INSULIN LISPRO SLIDING SCALE 100 UNITS/ML UNIT SUBQ SCH ×4 (06:30→20:43)
[2019-10-24] MEDS: Multivitamin Tab PO SCH (09:00)
[2019-10-24] MEDS: Ferrous Sulfate 325 MG TAB PO SCH ×2 (09:03→17:39)
[2019-10-24] MEDS: Calcium Carb/Vit D 500 mg/200 U Tab PO SCH (09:03)
--- NOTE | 2019-10-24 17:23 | Progress Notes ---
DATE: 10/24/2019 SUBJECTIVE: A 73-year-old -[place] male, currently in the hospital, pending a safe dispo, pending COVID-19 testing as required by the group home facility. Fair sleep and appetite, still mumbling to self. Still sometimes irritable, gets agitated, yells, but redirectable. Fair sleep and appetite. MEDICATIONS: Reviewed. Medications noted, no side effects. No EPS. Labs were reviewed. Vitals were reviewed, discussed with nursing staff. MENTAL STATUS EXAMINATION: Stated age. Fair eye contact. Mood "okay." hard to understand, mumbling. No SI, no HI. DIAGNOSIS: Schizophrenia. PLAN: The patient likely at his baseline. I am trying to get him to the group home. The group home is requiring COVID-19 testing. We are testing him for COVID-19. Once he tests negative, we can send him back to group home. He has no symptoms of COVID-19, no cough, no fever for example. JOB# [id number]
--- NOTE | 2019-10-24 17:53 | Internal Medicine Prog Note ---
Internal Medicine Subjective - Subjective Service Date: 10/24/19 Patient is:: awake, verbal, interactive Per staff patient has:: no adverse event, no episodes of fall, tolerating meds Internal Medicine Objective - Results Recent Labs: Laboratory Last Values POC Glucose 166 MG/DL (70 - 105) H 10/24/19 16:31 - Physical Exam Vitals and I&O: Vital Signs Temp 98.0 F 10/24/19 14:00 Pulse 82 10/24/19 17:41 Resp 20 10/24/19 14:00 BP 103/59 10/24/19 17:41 Pulse Ox 97 10/24/19 14:00 Intake & Output 10/23/19 10/24/19 10/24/19 18:59 06:59 18:59 Intake Total 960 240 Balance 960 240 Intake: Oral 960 240 Other: # Voids 4 2 # Bowel Movements 0 1 Active Medications: Current Medications Acetaminophen (Tylenol) 650 mg PO Q4H PRN PRN Reason: Pain (Mild 1-3) Stop: 12/07/19 16:46 Acetaminophen (Tylenol Extra Strength) 1,000 mg PO Q6H PRN PRN Reason: Pain (Moderate 4-6) Stop: 12/07/19 16:46 Last Admin: 10/12/19 01:51 Dose: 1,000 mg Hydrocodone Bitart/Acetaminophen ([place] 5mg/325mg) 1 tab PO Q6H PRN PRN Reason: Pain (Severe 7-10) Stop: 12/07/19 17:49 Last Admin: 10/17/19 21:13 Dose: 1 tab Al Hydrox/Mg Hydrox/Simethicone (Maalox) 30 ml PO Q4HR PRN PRN Reason: GI DISTRESS Stop: 12/07/19 16:46 Amlodipine Besylate (Norvasc) 10 mg PO DAILY [facility] Stop: 12/08/19 08:59 Last Admin: 10/24/19 08:59 Dose: 10 mg Ascorbic Acid (Vitamin C) 500 mg PO DAILY [facility] Stop: 12/08/19 08:59 Last Admin: 10/24/19 09:00 Dose: 500 mg Aspirin (Ecotrin) 81 mg PO DAILY [facility] Stop: 12/08/19 08:59 Last Admin: 10/24/19 09:04 Dose: 81 mg Bisacodyl (Dulcolax 10 Mg Supp) 10 mg RC DAILY PRN PRN Reason: IF MOM IS INEFFECTIVE Stop: 12/07/19 17:49 Calcium/Vitamin D (Oscal W/Vitamin D) 1 tab PO DAILY [facility] Stop: 12/08/19 08:59 Last Admin: 10/24/19 09:03 Dose: 1 tab Docusate Sodium (Colace) 250 mg PO BID [facility] Stop: 12/08/19 08:59 Last Admin: 10/24/19 17:37 Dose: 250 mg Famotidine (Pepcid) 20 mg PO BID [facility] Stop: 12/08/19 08:59 Last Admin: 10/24/19 17:37 Dose: 20 mg Ferrous Sulfate (Iron) 325 mg PO BID [facility] Stop: 12/08/19 08:59 Last Admin: 10/24/19 17:39 Dose: 325 mg Folic Acid (Folate) 1 mg PO DAILY [facility] Stop: 12/08/19 08:59 Last Admin: 10/24/19 09:02 Dose: 1 mg Glipizide (Glucotrol) 5 mg PO QDAC [facility] Stop: 12/09/19 07:29 Last Admin: 10/24/19 06:31 Dose: 5 mg Hydralazine HCl (Apresoline) 50 mg PO Q8H [facility] Stop: 12/07/19 21:59 Last Admin: 10/24/19 14:56 Dose: Not Given Ibuprofen (Motrin) 400 mg PO Q4H PRN PRN Reason: Pain (Severe 7-10) Stop: 12/07/19 16:46 Last Admin: 10/09/19 15:37 Dose: 400 mg Insulin Human Lispro (Humalog Insulin Sliding Scale) 0 units SUBQ ACHS [facility]; Protocol Stop: 12/07/19 20:59 Last Admin: 10/24/19 17:46 Dose: 2 units Latanoprost (Xalatan 0.005% Ophth Soln) 1 drop LEFT EYE HS [facility] Stop: 12/07/19 20:59 Last Admin: 10/23/19 21:05 Dose: Not Given Lisinopril (Zestril) 10 mg PO BID [facility] Stop: 12/08/19 08:59 Last Admin: 10/24/19 17:39 Dose: Not Given Lorazepam (Ativan) 0.5 mg PO Q4HR PRN; Protocol PRN Reason: Anxiety Stop: 11/07/19 16:46 Last Admin: 10/22/19 14:17 Dose: 0.5 mg Magnesium Hydroxide (Milk Of Magnesia) 30 ml PO HS PRN PRN Reason: Constipation Metoprolol Tartrate (Lopressor) 25 mg PO BID [facility] Stop: 12/08/19 08:59 Last Admin: 10/24/19 17:41 Dose: Not Given Multivitamins/Vitamin C (Theragran) 1 tab PO DAILY [facility] Stop: 12/08/19 08:59 Last Admin: 10/24/19 09:00 Dose: 1 tab Quetiapine Fumarate (Seroquel) 12.5 mg PO BID [facility]; Protocol Stop: 12/12/19 16:59 Last Admin: 10/24/19 17:42 Dose: 12.5 mg Quetiapine Fumarate 50 mg/ (Quetiapine Fumarate 25 mg) 75 mg PO HS [facility] Stop: 12/22/19 20:59 Last Admin: 10/23/19 20:25 Dose: 75 mg Zolpidem Tartrate (Ambien) 5 mg PO HS PRN PRN Reason: Insomnia Stop: 12/07/19 16:46 Last Admin: 10/22/19 20:40 Dose: 5 mg General: alert, NAD, other (paranoid) HEENT: NC/AT, PERRLA Neck: Supple Lungs: CTAB Cardiovascular: RRR, Normal S1, Normal S2 Abdomen: soft, non-tender, non-distended, positive bowel sound Extremities: excoriation Neurological: alert, disorganized Internal Medicine Assmt/Plan - Assessment Assessment: psychosis PARKINSON'S COPD DM2 ANEMIA SCHIZOPHRENIA GLAUCOMA - Plan Plan: continue home medications monitor bp closely accucheck with sliding scale fall precautions Nutritional Asmnt/Malnutr-PDOC - Dietary Evaluation Malnutrition Findings (Please click <Entered> for more info): Nutritional Asmnt/Malnutrition Start: 10/13/19 15: 19 Text: Status: Complete Freq: Protocol: Document 10/13/19 15:19 DAVID (Rec: 10/13/19 15:23 DAVID [email or web address] [id number]) Nutritional Asmnt/Malnutrition Patient General Information Nutritional Screening Moderate Risk Diagnosis Psychosis Pertinent Medical Hx/Surgical Hx Parkinsons Disease, COPD, DMT2, Anemia, Glaucoma, Schizophrenia Subjective Information Pt is a 73-year-old male admitted on 4/8 d/t increased agitation, yelling, aggressive behavior at nursing facilityPt is eating an estimated 77% of meals since admit date (x4 days) Per Meal/ Nutrition Activity Record. Dietary is currently providing an estimated 2000 kcals and 115 gm Pro, per Pt PO intake this is providing an estimated 1540 kcals and 90gm Pro to meet 96% kcal and 100+%. Pt has Glucotrol included in medication regimen but has refused it since admittance along with other medications. Recommend adding CCHO 60gm to current diet Rx for improved glucose control. Spoke with pt nurse Aurora concerning diet recommendation , Aurora stated the MD has been made aware of pt refusal to medications. Anthropometrics HT: 59 WT: 221 LB (100.45 kg) ABW: 175 LB (79.66 kg) BMI: 32.64 (Obese) GI/ Skin Integrity GI: WNL, Soft, Flat, Non- tender BM: 10/12 x1 I/O: 1210/Not Noted Skin: WNL, Intact, Scar tissue on legs Bear: 17 Diet Order: Cardiac, NCS Estimated Energy Needs: (Obese , ABW) 9676-5723 kcals (20-25 kcals/ kg) 60-70g Pro (0.8-.10 g/kg) 5812-2552 ml (20-25ml/kg) Current Diet Order/ Nutrition Support Cardiac, NCS Pertinent Medications Maalox (PRN), Vitamin C, Dulcolax (PRN), Oscal with Vitamin D, Pepcid, Ferrous Sulfate, INS-SS, Glucotrol, MOM (PRN), Theragran Pertinent Labs POC Glucose (last 24 hours): 267, 241, 380, 204 3: Glucose 353, BUN/Cr 31/1 .2, GFR 47 Nutritional Hx/Data Height 5 ft 9 in Height (Calculated Centimeters) 175.3 Current Weight (lbs) 221 lb Weight (Calculated Kilograms) 100.2 Weight (Calculated Grams) 706016.9 [place] Body Weight 160 LB (72.73 kg) % [place] Body Weight 138 Body Mass Index (BMI) 32.6 Weight Status Obese GI Symptoms Last BM 10/12 x1 Skin Integrity/Comment: Skin: WNL, Intact, Scar tissue on legs Bear: 17 Current %PO Good (75-100%) Estimated Nutritional Goals BEE in Kcals: Adj wt of IBW Calories/Kcals/Kg 20-25 Kcals Calculated 2377-0216 Protein: Adj wt of IBW Protein g/k.8-1.0 Protein Calculated 60-70 Fluid: ml 9445-4358 ml (20-25ml/kg) Nutritional Problem 2. Problem Problem Obesity Etiology r/t consistent energy overconsumption Signs/Symptoms: aeb BMI >30 (32.64). 1. Problem Problem Altered nutrition related labs Etiology r/t endocrine dysfunction Signs/Symptoms: aeb Hs DM, labs (09/22) Glucose 353, POC Glucose (last 24 hours): 267, 241, 380, 204. Malnutrition Related to Morbid Obesity Malnutrition related to morbid obesity No Intervention/Recommendation Comments 1.Recommend adding CCHO 60gm to current diet Rx for improved glucose control. 2.Continue antihyperglycemic medications for glucose control per MD order. Expected Outcomes/Goals Expected Outcomes/Goals 1.PO intake to continue to meet >75% of estimated nutritional needs. 2.Monitor PO intake, wt, nutrition related labs to trend WNL, and skin integrity. 3.Gradual weight loss (0.5-1.0 LB/week) trending towards IBW preferred. 4.F/U as moderate risk in 3-5 days, 10/15-10/17
[2019-10-25] MEDS: INSULIN LISPRO SLIDING SCALE 100 UNITS/ML UNIT SUBQ SCH ×4 (06:37→21:13)
[2019-10-25] MEDS: Calcium Carb/Vit D 500 mg/200 U Tab PO SCH (08:28)
[2019-10-25] MEDS: Ferrous Sulfate 325 MG TAB PO SCH ×2 (08:28→16:28)
[2019-10-25] MEDS: Multivitamin Tab PO SCH (08:29)
--- NOTE | 2019-10-25 08:55 | Progress Notes ---
DATE: 10/25/2019 SUBJECTIVE: The patient was seen in his room. The patient appears to be guarded, easily gets frustrated, has bearable impulse control ____ sleep and appetite. The patient is pending for discharge. COVID-19 testing is negative. Otherwise, the patient appears to be in no acute distress. OBJECTIVE: VITAL SIGNS: Temperature 97.7, heart rate of 90, blood pressure 141/82, respirations 19, 98% on room air. HEENT: Head is atraumatic and normocephalic. Eyes: Bilateral conjunctivae are clear. Bilateral pupils are equally round and reactive. NECK: Supple. No JVD. CARDIOVASCULAR: S1 and S2, without murmur. PULMONARY: Clear to auscultation. GASTROINTESTINAL: Soft and nontender without guarding. Positive bowel sounds. MUSCULOSKELETAL: No clubbing. No cyanosis noted. Positive muscle weakness. ASSESSMENT: 1. Schizophrenia. 2. Parkinson's disease. 3. Chronic obstructive pulmonary disease. 4. Diabetes. 5. Glaucoma. 6. Anemia. 7. Unsteady gait. PLAN: The patient for discharge planning. We will continue to monitor the patient's behavior. We will follow up with a psychiatrist. We will put the patient on fall precautions. Treatment plans were discussed with the patient's nurse. Treatment plans were discussed with Dr. Fletcher. JOB# [id number]
[2019-10-25] MEDS ORDERED: Haloperidol Lactate 5 mg/mL 1mL Vial ONE (10:51)
[2019-10-25] MEDS ORDERED: Haloperidol Lactate 5 mg/mL 1mL Vial IM ONE (11:00)
--- NOTE | 2019-10-25 23:29 | Progress Notes ---
DATE: 10/25/2019 COVERING FOR: Dr. Emile Peter. SUBJECTIVE: The patient was interviewed. Case was discussed with staff. Chart and records were reviewed. The patient, per staff reports has been talking to himself. He was agitated earlier in the day. He required emergent medications due to his behavior. He required Haldol, Ativan and Benadryl. Upon interview this afternoon, the patient has mumbled speech. He appears to be angered. He is not making any sense. He becomes increasingly aggressive during the interview verbally and the interview was terminated due to his escalating behavior. MENTAL STATUS EXAMINATION: The patient is sitting in the [place] hallway wearing a top-hat. He has mumbled speech. His mood is angered. Affect is labile. Thought process is loose at this time. Unable to assess for suicidal or homicidal thoughts, but he does have threatening statements. He is mumbling to himself, responding to internal stimuli, also paranoid of the environment. Alert and oriented x 1. Insight, judgment and impulse control appear to be poor. ASSESSMENT: This is a 73-year-old male admitted to [facility] since 10/08/2019 due to increasing aggression, yelling and cursing. The patient at this time continues to have mood swings, anger episodes requiring emergent IM medications earlier this morning. PLAN: We will continue the patient on acute hospitalization. We will continue medications as prescribed. We will encourage the patient to verbalize his needs and to participate in group and milieu therapy. [facility]# [id number]
--- NOTE | 2019-10-26 06:31 | Progress Notes ---
DATE: 10/26/2019 SUBJECTIVE: The patient was seen, chart reviewed, discussed with staff. The patient is still speaking with self, withdrawn, mumbling to self. Sometimes aggressive, unruly and yells, screams at times, but has been redirectable this morning, taking his medications. No overt side effects. The patient required emergency medications over the past 24 hours. Fair sleep and appetite. Medications were reviewed. Labs were reviewed. Vitals reviewed, blood pressure 118/63, pulse of 93. MENTAL STATUS EXAMINATION: Stated age, confused, disoriented, mumbling to self, orientation. DIAGNOSIS: Schizophrenia. PLAN: We will continue inpatient monitoring. The patient still remains somewhat unruly, will be increasing his dosing of Seroquel during the daytime. JOB# [id number]
[2019-10-26] MEDS: INSULIN LISPRO SLIDING SCALE 100 UNITS/ML UNIT SUBQ SCH ×5 (06:38→20:56)
[2019-10-26] MEDS: Multivitamin Tab PO SCH (08:32)
[2019-10-26] MEDS: Ferrous Sulfate 325 MG TAB PO SCH ×2 (08:33→16:38)
[2019-10-26] MEDS: Calcium Carb/Vit D 500 mg/200 U Tab PO SCH (08:33)
[2019-10-27] MEDS: INSULIN LISPRO SLIDING SCALE 100 UNITS/ML UNIT SUBQ SCH ×2 (06:42→11:44)
[2019-10-27] MEDS: Ferrous Sulfate 325 MG TAB PO SCH ×2 (08:29→08:59)
[2019-10-27] MEDS: Multivitamin Tab PO SCH ×2 (08:29→09:00)
[2019-10-27] MEDS: Calcium Carb/Vit D 500 mg/200 U Tab PO SCH ×2 (08:30→08:59)
--- NOTE | 2019-10-27 13:41 | Discharge Summary ---
DATE OF DISCHARGE: 10/27/2019 JUSTIFICATION FOR HOSPITALIZATION: Agitation, unruly behaviors. HISTORY OF PRESENT ILLNESS: A 73-year-old male, currently in the hospital, unruly, agitated at the halfway facility, was hard to redirect, yelling, combative, agitated, screaming at staff. PAST PSYCHIATRIC HISTORY: Schizophrenia. FAMILY HISTORY: Noncontributory. SOCIAL HISTORY: Coming from a local halfway facility, where he has been a long-term resident. MEDICATIONS: Reviewed. PROVISIONAL DIAGNOSIS: Schizophrenia. MEDICAL HISTORY: Noted. HOSPITAL COURSE: After initial assessment, the patient was restarted on medications. Seroquel was restarted, increased adjusted, titrated. Over the course of treatment, mood improved. He was calmer, still rambling, talking nonsense, hard to understand, yelling at times, but significantly calmer, more redirectable. Psychosis dissipating. Staff having easier time controlling his behaviors. Toward the latter end of treatment, he was showing a significant improvement. Eating well, sleeping well, more amenable to taking medications, which he initially had some resistance to. CONDITION UPON DISCHARGE: Improved, better ADLs, calm, generally more cooperative, no SI, no HI, still mumbling, but no overt delusions or paranoias. Better impulse control. DIAGNOSIS: Schizophrenia. PROGNOSIS: The patient follows up with outpatient mental health services and remains compliant with treatment. Prognosis will improve, otherwise guarded. [facility]# [id number]
== END 2019-10-27 16:10 | DRG 885 ==
LOC: GERO 15:45
PROVIDERS: ADMIT Psychiatry & Neurology Psychiatry; ATTEND Psychiatry & Neurology Psychiatry
DX: F20.9 Schizophrenia, unspecified (principal); J44.9 Chronic obstructive pulmonary disease, unspecified; E11.9 Type 2 diabetes mellitus without complications; D64.9 Anemia, unspecified; H40.9 Unspecified glaucoma; G20 Parkinson's disease; F29 Unspecified psychosis not due to a substance or known physiological condition
CPT/HCPCS: 82948-90; 83036-90; 90899; G0410; J1200; J1630; J2060; Z7610